=== PATIENT | female | born 1945 | race Caucasian/White ===

== ENCOUNTER 2017-10-08 07:00 | Outpatient (CLI) | payer OTHER | END 2017-10-08 07:01 | disposition home or self-care (01) | LOC: LAB.R 07:00 | DX: Z53.9 Procedure and treatment not carried out, unspecified reason (principal) ==

== ENCOUNTER 2017-10-24 14:11 | Outpatient (CLI) | payer MEDICARE, BC ==
--- NOTE | 2017-10-24 15:32 | XRAY Report ---
Procedure Date: 10/24/2017 Accession Number: [id number] / [id number] Procedure: XR - Chest 2 View X-Ray CPT Code: 63628 FULL RESULT: EXAM: Chest 2 View X-Ray DATE: 10/24/2017 2:30 PM CLINICAL HISTORY: [facility] COMPARISON: 08/10/2015 TECHNIQUE: 2 views. FINDINGS: Lungs/Pleura: The lungs are hyperinflated, with emphysematous changes. Calcified granulomas are stable. No new infiltrate, effusion, or pneumothorax. Mediastinum: Heart and mediastinal contours are unremarkable. Other: Postoperative changes of left mastectomy. IMPRESSION: Stable emphysema and changes of old granulomatous disease. No evidence of acute cardiopulmonary disease. [facility]
== END 2017-10-24 14:12 | disposition home or self-care (01) ==
LOC: DI 14:11
PROVIDERS: ATTEND Internal Medicine
DX: J43.9 Emphysema, unspecified (principal)
CPT/HCPCS: 71046

== ENCOUNTER 2017-11-01 17:56 | Outpatient (CLI) | payer MEDICARE, BC ==
--- NOTE | 2017-11-01 18:47 | CT Report ---
Procedure Date: 11/01/2017 Accession Number: [id number] / [id number] Procedure: CT - Head W/O CPT Code: FULL RESULT: EXAM: CT HEAD EXAM DATE: 11/01/2017 06:09 PM. CLINICAL HISTORY: SYNCOPE AND COLLAPSE. COMPARISON: None. TECHNIQUE: Multiaxial CT images were obtained from the foramen magnum to the vertex. Reformats: Coronal. IV contrast: None. In accordance with CT protocol optimization, one or more of the following dose reduction techniques were utilized for this exam: automated exposure control, adjustment of mA and/or KV based on patient size, or use of iterative reconstructive technique. FINDINGS: Parenchyma: No intraparenchymal hemorrhage. No evidence of mass, midline shift, or CT findings of infarction. Araya-white differentiation is distinct. Extraaxial Spaces: Normal for age. No subdural or epidural collections identified. Ventricles: Normal in size and position. Sinuses and Orbits: Imaged paranasal sinuses, orbits, and mastoids show no significant abnormality. Bones: No evidence of fracture or calvarial defect. Other: None. IMPRESSION: No acute intracranial abnormality. [facility]
== END 2017-11-01 17:57 | disposition home or self-care (01) ==
LOC: DI 17:56
PROVIDERS: ATTEND Physician Assistant Medical
DX: R55 Syncope and collapse (principal)
CPT/HCPCS: 70450

== ENCOUNTER 2017-11-05 10:04 | Outpatient (CLI) | payer MEDICARE, BC ==
--- NOTE | 2017-11-05 11:40 | XRAY Report ---
Procedure Date: 11/05/2017 Accession Number: [id number] / [id number] Procedure: XR - Shoulder 3 View LT CPT Code: FULL RESULT: EXAM: Shoulder 3 View LT DATE: 11/05/2017 11:27 AM CLINICAL HISTORY: RIB PAIN, LEFT/LOW BACK PAIN/SHOULDER JOINT PAIN COMPARISON: None. TECHNIQUE: 3 views. FINDINGS: Bones: Normal. No fracture or bone lesion. Joints: The glenohumeral and acromioclavicular joints are normal. Soft tissues: The visualized hemithorax is unremarkable. No soft tissue swelling. Surgical clips are seen in the left axilla. IMPRESSION: No fracture or dislocation. [facility]
--- NOTE | 2017-11-05 11:45 | XRAY Report ---
Procedure Date: 11/05/2017 Accession Number: [id number] / [id number] Procedure: XR - Lumbar Spine 2 View CPT Code: FULL RESULT: EXAM: Lumbar Spine 2 View DATE: 11/05/2017 11:27 AM CLINICAL HISTORY: RIB PAIN, LEFT/LOW BACK PAIN/SHOULDER JOINT PAIN L COMPARISON: None. TECHNIQUE: 2 views. FINDINGS: Alignment: Mild S-shaped thoracolumbar scoliosis. Bones: Vestigial ribs are noted at L1. Marginal osteophytosis most pronounced at L2-3 anteriorly. No fractures or bone lesions. Disks: Normal. Disk heights are maintained. Facets: No degenerative changes. Sacroiliac Joints: Unremarkable. Soft Tissues: Aortic calcifications, the visualized bowel gas pattern is unremarkable. Surgical clips over the pelvis are noted. IMPRESSION: Mild scoliosis with minimal degenerative changes. [facility]
--- NOTE | 2017-11-05 11:48 | XRAY Report ---
Procedure Date: 11/05/2017 Accession Number: [id number] / [id number] Procedure: XR - Ribs 2 View LT CPT Code: FULL RESULT: EXAM: Ribs 2 View LT DATE: 11/05/2017 11:27 AM CLINICAL HISTORY: RIB LEFT,LOW BACK SHOULDER JOINT PAIN..LEFT COMPARISON: 10/24/2017. TECHNIQUE: 2 views. FINDINGS: Bones: Normal. No fracture or bone lesion. Lungs: No focal opacities evident. No pneumothorax or pleural effusions. Mediastinum: Heart and cardiomediastinal contours are unremarkable. Other: Surgical clips are seen projecting over the left mediastinum and axilla. IMPRESSION: No displaced rib fracture is identified. [facility]
== END 2017-11-05 10:05 | disposition home or self-care (01) ==
LOC: DI 10:04
PROVIDERS: ATTEND Physician Assistant Medical
DX: R07.81 Pleurodynia (principal); M25.512 Pain in left shoulder; M54.5 Low back pain; M41.86 Other forms of scoliosis, lumbar region
CPT/HCPCS: 72100

== ENCOUNTER 2017-12-26 15:42 | Outpatient (CLI) | payer MEDICARE, BC ==
--- NOTE | 2017-12-27 08:39 | DEXA Report ---
Reason: BONE DISORDER Procedure Date: 12/26/2017 Accession Number: [id number] / [id number] Procedure: DEX - Dexa Spine and/or Hip CPT Code: FULL RESULT: EXAM: Dexa Spine and/or Hip DATE: 12/26/2017 4:14 PM CLINICAL HISTORY: BONE DISORDER TECHNIQUE: Dual energy x-ray absorptiometry (DXA) was performed on a [employer] System. Regions measured are the AP Spine, femoral neck, and if needed forearm. COMPARISON: None. In accordance with the International Society for Clinical Densitometry (ISCD) guidelines, data from previous exams may be reanalyzed using current recommendations and techniques. This is done to allow a more accurate basis for comparison with the current study. FINDINGS: The data for the lumbar spine is as follows: BMD (g/cm/cm) T-SCORE Z-SCORE REGION L1 0.825 -2.5 -0.4 L2 0.896 -2.5 -0.4 L3 0.941 -2.2 0.0 L4 0.900 -2.5 -0.4 TOTAL 0.894 -2.4 -0.2 NOTE: All evaluable vertebrae are used for classification The data for the hip is as follows: BMD (g/cm/cm) T-SCORE Z-SCORE REGION Neck 0.746 -2.1 0.0 TOTAL 0.750 -2.0 -0.1 NOTE: The femoral neck or total proximal femur, whichever is lowest, is used for classification. IMPRESSION: THE WHO CLASSIFICATION BASED ON THE INTERNATIONAL REFERENCE STANDARD IS OSTEOPENIA. THE FRACTURE RISK IS INCREASED. RECOMMENDATION: Patients with diagnosis of osteoporosis or osteopenia should have regular bone mineral density assessment. For those eligible for Medicare, routine testing is allowed once every 2 years. Testing frequency can be increased for patients who have rapidly progressing disease or for those who are receiving medical therapy to restore bone mass. COMMENT: World Health Organization (WHO) definitions for osteoporosis and osteopenia: NORMAL BMD: T-score at -1.0 or higher, fracture risk is low OSTEOPENIA BMD: T-score between -1.0 and -2.5, fracture risk is increased. OSTEOPOROSIS BMD: T-score at -2.5 or lower, fracture risk is high. National Osteoporosis Foundation recommends: 1. Obtain adequate dietary calcium (at least 1200 mg per day) and vitamin D (400-800 international units per day). 2. Participate, as appropriate, in regular weightbearing and muscle-strengthening exercise. 3. Avoid tobacco use and reduce alcohol and caffeine intake. 4. For more detailed information see the website at www.NOF.org.
== END 2017-12-26 15:43 | disposition home or self-care (01) ==
LOC: DI 15:42
PROVIDERS: ATTEND Family Medicine
DX: M85.89 Other specified disorders of bone density and structure, multiple sites (principal)
CPT/HCPCS: 77080

== ENCOUNTER 2018-02-07 13:41 | Outpatient (CLI) | payer MEDICARE, BC ==
[2018-02-07 19:46] LABS: BASOPHILS % (AUTO) 0.4 %; EOSINOPHILS # (AUTO) 0.2 10^3/uL (0.0-0.7); EOSINOPHILS % (AUTO) 3.5 %; HGB - HEMOGLOBIN 11.6 g/dL (12.0-16.0); LYMPHOCYTES # (AUTO) 1.9 10^3/uL (1.5-3.5); LYMPHOCYTES % (AUTO) 27.7 %; MEAN CORPUSCULAR HEMOGLOBIN 26.1 pg (27.0-31.0); MEAN CORPUSCULAR HGB CONC 32.2 g/dL (32.0-36.0); MEAN CORPUSCULAR VOLUME 81.1 fL (81.0-99.0); MEAN PLATELET VOLUME 7.3 fL (7.9-10.8); MONOCYTES # (AUTO) 0.9 10^3/uL (0.0-1.0); MONOCYTES % (AUTO) 12.8 %; NEUTROPHILS # (AUTO) 3.8 10^3/uL (1.5-6.6); NEUTROPHILS % (AUTO) 55.6 %; PLT - PLATELET COUNT 399 10^3/uL (130-450); RED BLOOD COUNT 4.46 10^6/uL (4.20-5.40); RED CELL DISTRIBUTION WIDTH 14.2 % (12.0-15.0); WHITE BLOOD COUNT 6.8 x10^3/uL (4.8-10.8)
[2018-02-07 20:22] LABS: ALBUMIN 3.8 g/dL (3.2-5.5); ALBUMIN/GLOBULIN RATIO 1.1 (1.0-2.2); BILIRUBIN,TOTAL 0.6 mg/dL (0.2-1.0); CALCIUM 9.3 mg/dL (8.5-10.3); CREATININE 0.6 mg/dL (0.4-1.0); TOTAL PROTEIN 7.4 g/dL (6.7-8.2)
== END 2018-02-07 13:42 | disposition home or self-care (01) ==
LOC: LAB.WCP 13:41
PROVIDERS: ATTEND Family Medicine
DX: R55 Syncope and collapse (principal); I48.0 Paroxysmal atrial fibrillation
CPT/HCPCS: 36415; 80053; 84443; 85025

== ENCOUNTER 2018-02-13 13:45 | Outpatient (CLI) | payer MEDICARE, BC | END 2018-02-13 13:46 | disposition home or self-care (01) | LOC: DI 13:45 | PROVIDERS: ATTEND Family Medicine | DX: R55 Syncope and collapse (principal); I48.0 Paroxysmal atrial fibrillation | CPT/HCPCS: 93306 ==

== ENCOUNTER 2018-03-01 08:01 | Outpatient (CLI) | payer MEDICARE, BC ==
[2018-03-01] MEDS ORDERED: IOTHALAMATE MEGLUMINE 50 ML VIAL ONE (09:21)
[2018-03-01] MEDS ORDERED: GADOPENTETATE DIMEGLUMINE 5 ML VIAL IVP ONE ×3 (09:22→10:40)
[2018-03-01] MEDS ORDERED: BUFFERED LIDOCAINE 10 ML SYRINGE IU ONE ×2 (10:40)
[2018-03-01] MEDS ORDERED: IOTHALAMATE MEGLUMINE 50 ML VIAL IVP ONE (10:40)
--- NOTE | 2018-03-01 16:05 | MRI Report ---
Reason: CERVICAL RADICULOPATHY,LEFT Procedure Date: 03/01/2018 Accession Number: [id number] / [id number] Procedure: MRI - Cervical Spine W/O CPT Code: FULL RESULT: MRI CERVICAL SPINE WITHOUT CONTRAST EXAM DATE: 03/01/2018. INDICATION: 73-year-old female. History of breast cancer. Left shoulder and neck pain. TECHNIQUE: 1. Sagittal STIR, T1 and T2. 2. Axial T1, T2 and T2*. COMPARISON: None. FINDINGS: There is some straightening of the alignment in the upper/mid cervical spine. There is a mild lordosis in the lower cervical spine, centered at C6. There is minor, stepwise retrolisthesis of C3 on C4, C4 on C5 and C5 on C6 measuring 1-2 mm at all 3 levels. Also demonstrated is minor anterolisthesis of T1 on T2 and T2 on T3. Alignment is otherwise unremarkable. There is absence of normal T2 signal from the disks at all levels from C2-C3 through C7-T1, confirming disk degeneration. There is mild disk space narrowing at C2-C3 and C3-C4 with mild to moderate narrowing at C4-C5 and C5-C6 and mild narrowing at C6-C7. The C7-T1 disk space height is maintained. The marrow signal intensity is unremarkable. Axial Images: C2-C3: Small posterior spondylotic bar with minimal mass effect on the thecal sac. No spinal stenosis. The neural foramina appear widely patent. C3-C4: Retrolisthesis. Small posterior spondylotic bar with mild mass effect on the ventral aspect of the thecal sac. The CSF ventral to the cord is effaced. However, there is good CSF space dorsal to the cord without spinal stenosis. Right-sided uncovertebral osteophyte appears to be giving rise to mild right foraminal stenosis. C4-C5: Tiny posterior spondylotic bar with minimal mass effect on the thecal sac. The CSF ventral to the cord is effaced. There is good CSF space dorsal to the cord without significant spinal stenosis. Uncovertebral hypertrophy appears to be giving rise to mild to moderate right foraminal stenosis. No left foraminal narrowing. C5-C6: Posterior spondylotic bar indenting the ventral aspect of the thecal sac. The CSF ventral to the cord is effaced. There is a small amount of CSF dorsal to the cord without high-grade spinal stenosis. No evidence of spinal cord impingement. Uncovertebral hypertrophy gives rise to foraminal narrowing that appears to be at least moderate, possibly moderate to severe on the right. Mild to moderate left foraminal stenosis. C6-C7: Tiny posterior spondylotic bar with minimal mass effect on the thecal sac. No spinal stenosis. Left-sided intraforaminal extrusion with mild left foraminal stenosis. No right foraminal narrowing. C7-T1: No disk herniation or spinal stenosis. The neural foramina appear widely patent. T1-T2: Anterolisthesis with associated uncovering of the disk. No disk herniation or spinal stenosis. Neural foramina appear widely patent. The spinal cord appears to have a normal signal intensity throughout. IMPRESSION: 1. Multilevel degenerative cervical spondylosis without significant associated spinal stenosis. No evidence of spinal cord impingement. 2. Multilevel bony foraminal narrowing as described. The foraminal narrowing appears to be most prominent at C5-C6 on the right where there could be compromise of the exiting right C6 nerve root. Recommend clinical correlation for right C6 radiculopathy. 3. With respect to left-sided shoulder pain, no significant-appearing bony foraminal stenosis is demonstrated. There is a small left-sided intraforaminal disk herniation at C6-C7. It does not appear to be resulting in significant foraminal stenosis; however, there could potentially be irritation of the exiting left C7 nerve root. Recommend clinical correlation for possible left C7 radiculitis.
--- NOTE | 2018-03-01 16:43 | MRI Report ---
Reason: SHOULDER JOINT PAIN, LEFT, HX OF ADENOCARCINOMA BR Procedure Date: 03/01/2018 Accession Number: [id number] / [id number] Procedure: MRI - Arthrogram Shoulder LT CPT Code: FULL RESULT: EXAM: LEFT SHOULDER MRI ARTHROGRAM WITH CONTRAST EXAM DATE: 03/01/2018 11:40 AM. CLINICAL HISTORY: SHOULDER JOINT PAIN, LEFT, HX OF ADENOCARCINOMA BR. COMPARISON: SHOULDER 3 VIEW LT 11/05/2017 11:06 AM. TECHNIQUE: Multiplanar, multisequence T1-weighted and fluid-sensitive sequences of the shoulder after an arthrographic injection of dilute gadolinium, dictated under a separate exam. Other: None. FINDINGS: Rotator cuff: Some low-grade articular surface tear or fraying of the distal supraspinatus measuring approximately 1.5 cm medial to lateral and 1 cm anteroposterior. No evidence of a high-grade or full-thickness rotator cuff tear. No rotator cuff muscle atrophy or fatty replacement. Long head biceps tendon: Intact demonstrating normal course, signal and morphology. Labrum: Linear contrast filling defect along the base of the superior labrum. There is a lobulated cystic structure within the joint superiorly which demonstrates partial contrast filling with some shading of contrast measuring up to 2.9 x 2.0 x 2.4 cm. The collection appears partially draped along the superior margin of the subscapularis. This may represent a partial contrast filling the anterosuperior. Labral cyst. Bones and articular surfaces: No significant articular cartilage defects are seen. Acromioclavicular joint: Mild degenerative change. Type II acromion. IMPRESSION: 1. Contrast filling defect along the base of the superior labrum suspicious for tear with possible associated anterosuperior large lobulated partially contrast filling paralabral cyst. 2. Low-grade articular surface tear or fraying of the supraspinatus. [facility] MUSCULOSKELETAL RADIOLOGY SECTION
--- NOTE | 2018-03-04 08:48 | XRAY Report ---
Reason: SHOULDER JOINT PAIN, LEFT, HX OF ADENOCARCINOMA BR Procedure Date: 03/01/2018 Accession Number: [id number] / [id number] Procedure: FL - Arthrogram Needle Placement CPT Code: FULL RESULT: EXAM: LEFT SHOULDER ARTHROGRAPHIC INJECTION WITH FLUOROSCOPIC GUIDANCE EXAM DATE: 03/01/2018 10:19 AM. CLINICAL HISTORY: Left shoulder joint pain. History of breast cancer. COMPARISON: None. TECHNIQUE: The risks, benefits, and alternatives of the procedure were discussed with the patient. All questions were answered. Written and verbal consent were obtained. The glenohumeral joint was marked under fluoroscopy and prepped and draped in a sterile manner. Local anesthesia was performed with 1% lidocaine. A 22-gauge needle was then inserted into the glenohumeral joint. 10 mL of a solution containing 25% 1% lidocaine, 25% iodinated contrast, and a 1:200 dilution of gadolinium contrast in sterile saline was then injected. The needle was removed without immediate complication. Other: None. Fluoroscopy Time: 3 seconds. Number of Images: 1. FINDINGS: Bones and joints: No fracture or subluxation. Injection: Fluoroscopic images demonstrate needle placement and contrast in the glenohumeral joint. No contrast extravasation outside of the glenohumeral joint. IMPRESSION: Successful fluoroscopically guided arthrographic injection of the shoulder. [facility]
== END 2018-03-01 08:02 | disposition home or self-care (01) ==
LOC: DI 08:01
PROVIDERS: ATTEND Family Medicine
DX: M25.512 Pain in left shoulder (principal); M47.9 Spondylosis, unspecified; M50.223 Other cervical disc displacement at C6-C7 level; M50.31 Other cervical disc degeneration, high cervical region; M43.14 Spondylolisthesis, thoracic region
CPT/HCPCS: 23350; 72141; 73222; 77002; Q9961

== ENCOUNTER 2018-07-11 18:00 | Emergency (ER) | payer MEDICARE, BC ==
--- NOTE | 2018-07-11 18:40 | ED Physician Documentation ---
PD HPI CHEST PAIN - Stated complaint Stated Complaint: HBP - Chief complaint Chief Complaint: Cardiac - History obtained from History obtained from: Patient - History of Present Illness Timing - onset: How many weeks ago (has been feeling intermittent fast and irregular heart rate, more frequent the past few days. Had it [employer] and feeling okay once here. Had had similar in the past and had lunchroom monitor, and they have results with them. The report read couple episodes of atrial fib/flutter with rate to 150, but also normal rhythm at other times that she marked feeling symptoms.) Timing - onset during: Rest, Light activity Timing - duration: Minutes Timing - details: Abrupt onset, Now resolved Quality: Tightness Radiation: No: Neck, Back Improved by: No: Rest Associated symptoms: Shortness of air (has had dyspnea more consistently even without the feeling of palpitations, some improved with Albuterol.), Feeling faint / dizzy, Palpitations. No: Nausea, Cough Similar symptoms before: Diagnosis (had some episodes of atrial flutter on lunchroom monitor outpt, but not often enough for treatment at the time. 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 denies: Chest pain / pressure Respiratory: reports: Dyspnea, Cough, Wheezing GI: denies: Nausea, Vomiting, Diarrhea Musculoskeletal: denies: Extremity swelling Neurologic: denies: Near syncope, Syncope PD PAST MEDICAL HISTORY - Past Medical History Past Medical History: Yes Cardiovascular: Hypertension, Atrial flutter Respiratory: Asthma Neuro: None Endocrine/Autoimmune: None - Present Medications Home Medications: Ambulatory Orders Medication Instructions Recorded Confirmed Beclomethasone 40 Mcg [Qvar 40] 1 puffs INH BID #1 inhaler 07/11/18 Metoprolol Tartrate 25 mg PO DAILY #30 tablet 07/11/18 Potassium Chloride 10 meq PO DAILY #10 tablet.er 07/11/18 - Allergies Allergies/Adverse Reactions: Allergies Allergy/AdvReac Type Severity Reaction Status Date / Time acetaminophen [From Vicodin] Allergy Unknown Verified 07/11/18 18:21 cephalexin [From Keflex] Allergy Unknown Verified 07/11/18 18:22 codeine Allergy Unknown Verified 07/11/18 18:21 hydrocodone Allergy Unknown Verified 07/11/18 18:21 hydromorphone [From Dilaudid] Allergy Unknown Verified 07/11/18 18:21 oxycodone [From Percocet] Allergy Unknown Verified 07/11/18 18:22 Sulfa (Sulfonamide Allergy Unknown Verified 07/11/18 18:21 Antibiotics) PD ED PE NORMAL - Vitals Vital signs reviewed: Yes - General General: Alert and oriented X 3, No acute distress, Well developed/nourished - HEENT HEENT: Pharynx benign - Neck Neck: Supple, no meningeal sign, No adenopathy - Cardiac Cardiac: RRR, No murmur - Respiratory Respiratory: Clear bilaterally - Abdomen Abdomen: Soft, Non tender - Back Back: No CVA TTP - Derm Derm: Normal color, Warm and dry - Extremities Extremities: No tenderness to palpate, Normal ROM s pain, No edema, No calf tenderness / cord - Neuro Neuro: Alert and oriented X 3, No motor deficit, Normal speech Results - Vitals Vitals: Oxygen O2 Source Room air - EKG (time done) 18:13 Rate: Rate (enter#) (93) Rhythm: NSR [place]: Normal Intervals: Normal [place] QRS: Normal Ischemia: Normal ST segments. No: ST elevation c/w ischemia, ST depression - Labs Labs: Laboratory Tests 07/11/18 07/11/18 07/11/18 18:31 18:31 18:31 WBC 8.0 RBC 4.34 Hgb 11.4 L Hct 35.5 L MCV 81.8 MCH 26.2 L MCHC 32.0 RDW 12.8 Plt Count 392 MPV 6.8 L Neut # (Auto) 4.4 Lymph # (Auto) 1.9 Pierce # (Auto) 1.5 H Eos # (Auto) 0.2 Baso # (Auto) 0.1 Absolute Nucleated RBC 0.00 Nucleated RBC % 0.0 Sodium 138 Potassium 3.5 Chloride 99 L Carbon Dioxide 28 Anion Gap 11.0 BUN 13 Creatinine 0.6 Estimated GFR (MDRD) 98 Glucose 108 H Calcium 8.8 Total Bilirubin 0.5 AST 25 ALT 15 Alkaline Phosphatase 102 Troponin I < 0.04 Total Protein 7.2 Albumin 3.8 Globulin 3.4 Albumin/Globulin Ratio 1.1 Lipase 54 H Urine Color Urine Clarity Urine pH Ur Specific [place] Urine Protein Urine Glucose (UA) Urine Ketones Urine Occult Blood Urine Nitrite Urine Bilirubin Urine Urobilinogen Ur Leukocyte Esterase Ur Microscopic Review Urine Culture Comments 07/11/18 18:45 WBC RBC Hgb Hct MCV MCH MCHC RDW Plt Count MPV Neut # (Auto) Lymph # (Auto) Pierce # (Auto) Eos # (Auto) Baso # (Auto) Absolute Nucleated RBC Nucleated RBC % Sodium Potassium Chloride Carbon Dioxide Anion Gap BUN Creatinine Estimated GFR (MDRD) Glucose Calcium Total Bilirubin AST ALT Alkaline Phosphatase Troponin I Total Protein Albumin Globulin Albumin/Globulin Ratio Lipase Urine Color LT. YELLOW Urine Clarity CLEAR Urine pH 6.0 Ur Specific [place] 1.010 Urine Protein NEGATIVE Urine Glucose (UA) NEGATIVE Urine Ketones NEGATIVE Urine Occult Blood TRACE-LYSE Urine Nitrite NEGATIVE Urine Bilirubin NEGATIVE Urine Urobilinogen 0.2 (NORMAL) Ur Leukocyte Esterase NEGATIVE Ur Microscopic Review NOT INDICATED Urine Culture Comments NOT INDICATED - Rads (name of study) chest xray Radiology: Prelim report reviewed (normal, no CHF.) PD MEDICAL DECISION MAKING - ED course Complexity details: reviewed results, re-evaluated patient, considered differential (symptoms suggest more often atrial fib/flutter episodes. None here. Had them found on prior Holter. Can start beta jose, as resting HR is 70-80 and BP slightly high. I think her dyspnea sounds more asthma. She does not want oral steroids, but can do inhaled. ), d/w patient Departure - Departure Disposition: 01 Home, Self Care Clinical Impression: Episodic atrial fibrillation High blood pressure Qualifiers: Hypertension type: unspecified Qualified Code(s): I10 - Essential (primary) hypertension Asthma exacerbation Qualifiers: Asthma severity: mild Asthma persistence: intermittent Qualified Code(s): J45.21 - Mild intermittent asthma with (acute) exacerbation Condition: Stable Record reviewed to determine appropriate education?: Yes Instructions: ED Afib Follow-Up: Nash Goncalves DO [Primary Care Provider] - Prescriptions: Beclomethasone 40 Mcg [Qvar 40] 1 puffs INH BID #1 inhaler Metoprolol Tartrate 25 mg PO DAILY #30 tablet Potassium Chloride 10 meq PO DAILY #10 tablet.er Comments: Given your episodes of atrial fib flutter in the past associated with these feelings, I presume some of the fast heart rate episodes you felt are episodes of the A. fib. If not there likely PVCs/palpitations. Both can be tried to reduce with low-dose metoprolol beta-jose medication. Start taking metoprolol daily. Stay well-hydrated. Add a potassium supplement for a week as your level was a bit low (low normal). Follow-up with your primary care next week and check your blood pressure and heart rate twice daily during the next week and record it to bring that information to your provider. Regarding your difficulty breathing, he can continue the albuterol 2 puffs twice daily. Add beclomethasone inhaled steroid twice daily and see if that helps the breathing over the next several days to week. Return as needed. Discharge Date/Time: 07/11/18 20:29
[2018-07-11 18:44] LABS: BASOPHILS # (AUTO) 0.1 10^3/uL (0.0-0.1); BASOPHILS % (AUTO) 0.7 %; EOSINOPHILS # (AUTO) 0.2 10^3/uL (0.0-0.7); EOSINOPHILS % (AUTO) 2.6 %; HGB - HEMOGLOBIN 11.4 g/dL (12.0-16.0); LYMPHOCYTES # (AUTO) 1.9 10^3/uL (1.5-3.5); LYMPHOCYTES % (AUTO) 23.1 %; MEAN CORPUSCULAR HEMOGLOBIN 26.2 pg (27.0-31.0); MEAN CORPUSCULAR VOLUME 81.8 fL (81.0-99.0); MEAN PLATELET VOLUME 6.8 fL (7.9-10.8); MONOCYTES # (AUTO) 1.5 10^3/uL (0.0-1.0); MONOCYTES % (AUTO) 18.4 %; NEUTROPHILS # (AUTO) 4.4 10^3/uL (1.5-6.6); NEUTROPHILS % (AUTO) 55.2 %; PLT - PLATELET COUNT 392 10^3/uL (130-450); RED BLOOD COUNT 4.34 10^6/uL (4.20-5.40); RED CELL DISTRIBUTION WIDTH 12.8 % (12.0-15.0)
[2018-07-11 18:54] LABS: ALBUMIN 3.8 g/dL (3.2-5.5); ALBUMIN/GLOBULIN RATIO 1.1 (1.0-2.2); BILIRUBIN,TOTAL 0.5 mg/dL (0.2-1.0); CALCIUM 8.8 mg/dL (8.5-10.3); CREATININE 0.6 mg/dL (0.4-1.0); TOTAL PROTEIN 7.2 g/dL (6.7-8.2)
[2018-07-11 19:04] LABS: BILIRUBIN,URINE NEGATIVE (NEGATIVE); GLUCOSE, URINE (UA) NEGATIVE (NEGATIVE); KETONES,URINE (UA) NEGATIVE (NEGATIVE); LEUKOCYTE ESTERASE, URINE NEGATIVE (NEGATIVE); NITRITE,URINE NEGATIVE (NEGATIVE); OCCULT BLOOD,URINE TRACE-LYSE (NEGATIVE); PROTEIN,URINE NEGATIVE (NEGATIVE); UROBILINOGEN,URINE 0.2 (NORMAL) E.U./dL (NORMAL)
[2018-07-11 19:07] LABS: CLARITY,URINE CLEAR (CLEAR)
--- NOTE | 2018-07-11 19:13 | XRAY Report ---
Reason: chest pain Procedure Date: 07/11/2018 Accession Number: [id number] / [id number] Procedure: XR - Chest 1 View X-Ray CPT Code: 59393 FULL RESULT: EXAM: CHEST RADIOGRAPHY EXAM DATE: 07/11/2018 06:49 PM. CLINICAL HISTORY: Chest pain. COMPARISON: CHEST 2 VIEW PA/LAT 02/05/2018 2:23 PM. TECHNIQUE: 1 view. FINDINGS: Cardiac leads overlie the chest. Heart size is normal. Calcified plaques in the thoracic aorta. Surgical clips again seen projecting over the left chest. Mild patchy opacity in the left lung base. No definite pleural effusions or pneumothoraces. Biphasic curvature of the thoracic spine. IMPRESSION: Mild patchy opacity in the left lung base, likely atelectasis. [facility]
[2018-07-11] MEDS ORDERED: METOPROLOL SUCCINATE 25 MG TABLET PO STA (19:14)
[2018-07-11] MEDS ORDERED: POTASSIUM BICARB 25 MEQ TABLET PO STA (19:17)
[2018-07-11] MEDS ORDERED: ALBUTEROL NEB 2.5 MG/3 ML INH STA (19:23)
[2018-07-11 20:29] VITALS: BP 151/79
== END 2018-07-11 20:29 | disposition home or self-care (01) ==
LOC: ED 18:00
DX: I48.91 Unspecified atrial fibrillation (principal); I10 Essential (primary) hypertension
CPT/HCPCS: 36415; 71045; 80053; 81003; 83690; 84484; 85025; 93005; 94640; 94664; 99283; A9270; 81001; 87086

== ENCOUNTER 2018-08-05 05:15 | Emergency (ER) | payer MEDICARE, BC ==
[2018-08-05] MEDS ORDERED: SODIUM CHLORIDE 0.9% 1,000 ML IV ONE (06:03)
[2018-08-05] MEDS ORDERED: IPRATROPIUM/ALBUTEROL 3 ML NEB INH STA (06:03)
[2018-08-05] MEDS ORDERED: DEXAMETHASONE 10 MG/ML VIAL IVP STA (06:03)
--- NOTE | 2018-08-05 06:07 | ED Physician Documentation ---
PD HPI CHEST PAIN - Stated complaint Stated Complaint: HBP - Chief complaint Chief Complaint: Neuro - History obtained from History obtained from: Patient, Family - History of Present Illness Timing - onset: Today Timing - onset during: Rest Timing - duration: Hours Timing - details: Waxing and waning Quality: Pressure, Pain Location: Left chest Radiation: Back Improved by: Rest Worsened by: Inspiration Associated symptoms: Shortness of air, Cough, Other (elevated blood pressure) Similar symptoms before: Has not had sx before Recently seen: Emergency Dept - Additional information Additional information: 73-year-old female with a prior history of breast cancer, intermittent atrial flutter and hypertension has not felt well for the past month with a cough and congestion. The past 2 days she has begun to feel fatigue and chills as well as pain in her neck and chest. She got up in the middle of the night checked her blood pressure found it was elevated and woke her up to come to the emergency department. She initially did not tell her about the chest pain she was having. She denies radiation of the pain and the pain that she is having in her neck is across the back of her neck where she can feel stiff muscles. Review of Systems Constitutional: reports: Chills, Fatigue, Sweats. denies: Fever Eyes: denies: Decreased vision Ears: denies: Ear pain Nose: denies: Rhinorrhea / runny nose, Congestion Throat: denies: Sore throat Cardiac: reports: Chest pain / pressure. denies: Palpitations, Pedal edema, Calf pain Respiratory: reports: Dyspnea, Cough, Wheezing GI: denies: Abdominal Pain, Nausea, Vomiting : denies: Dysuria, Frequency Skin: denies: Rash Musculoskeletal: reports: Neck pain. denies: Back pain, Extremity pain Neurologic: reports: Other (light headed). 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 Other Past Medical History: L breast CA - Past Surgical History Past Surgical History: Yes /CASSANDRA CONSULTANT: Mastectomy - Present Medications Home Medications: Ambulatory Orders Medication Instructions Recorded Confirmed RX: Metoprolol Tartrate 25 mg PO DAILY #30 tablet 07/11/18 08/05/18 Aspirin [Children's Aspirin] 81 mg PO DAILY 08/05/18 08/05/18 Beclomethasone 40 Mcg [Qvar 40] 1 puffs IH BID 08/05/18 08/05/18 RX: Azithromycin [Zithromax] 250 mg PO DAILY #6 tablet 08/05/18 RX: Potassium Chloride 10 meq PO DAILY 08/05/18 08/05/18 RX: predniSONE [Deltasone] 10 mg PO ONCE #26 tablet 08/05/18 - Allergies Allergies/Adverse Reactions: Allergies Allergy/AdvReac Type Severity Reaction Status Date / Time acetaminophen [From Vicodin] Allergy Unknown Verified 08/05/18 05:23 cephalexin [From Keflex] Allergy Unknown Verified 08/05/18 05:23 codeine Allergy Unknown Verified 08/05/18 05:23 hydrocodone Allergy Unknown Verified 08/05/18 05:23 hydromorphone [From Dilaudid] Allergy Unknown Verified 08/05/18 05:23 oxycodone [From Percocet] Allergy Unknown Verified 08/05/18 05:23 Sulfa (Sulfonamide Allergy Unknown Verified 08/05/18 05:23 Antibiotics) - Social History Does the pt smoke?: No Smoking Status: Never smoker Does the pt drink ETOH?: Yes ETOH Use: Wine Does the pt have substance abuse?: No - Immunizations Immunizations are current?: No Immunizations: TDAP >10years/unknown - POLST Patient has POLST: No PD ED PE NORMAL - Vitals Vital signs reviewed: Yes (hypertensive mild ) - General General: Alert and oriented X 3, No acute distress, Well developed/nourished - HEENT HEENT: Atraumatic, PERRL, EOMI, Moist mucous membranes, Pharynx benign, Dentition benign, Other (minimal inflamation in the left TM) - Neck Neck: Supple, no meningeal sign, No bony TTP - Cardiac Cardiac: RRR, No murmur - Respiratory Respiratory: No respiratory distress, Other (rhonchi and wheezes on the left side. 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, No motor deficit, No sensory deficit, Normal speech Eye Opening: Spontaneous Motor: Obeys Commands Verbal: Oriented GCS Score: 15 - Psych Psych: Normal mood, Normal affect Results - Vitals Vitals: Vital Signs - 24 hr 08/05/18 08/05/18 08/05/18 05:15 05:36 06:13 Temperature 36.9 C Heart Rate 71 65 102 H Respiratory 18 18 16 Rate Blood Pressure 161/75 H 154/69 H O2 Saturation 97 98 08/05/18 08/05/18 06:23 06:45 Temperature Heart Rate 70 73 Respiratory 19 19 Rate Blood Pressure 140/70 H 159/75 H O2 Saturation 100 100 Oxygen O2 Source Room air - EKG (time done) 0614 Rate: Rate (enter#) (61) QRS: LVH Ischemia: Normal ST segments Compare to prior EKG: Changed from prior EKG (SPT 07-11-18 rate has slowed) Computer interpretation: Agree with computer - Labs Labs: Laboratory Tests 08/05/18 08/05/18 08/05/18 06:13 06:13 06:13 WBC 8.3 RBC 4.38 Hgb 11.5 L Hct 35.8 L MCV 81.7 MCH 26.3 L MCHC 32.2 RDW 13.2 Plt Count 386 MPV 6.9 L Neut # (Auto) 4.3 Lymph # (Auto) 2.1 Richardson # (Auto) 1.5 H Eos # (Auto) 0.4 Baso # (Auto) 0.1 Absolute Nucleated RBC 0.00 Nucleated RBC % 0.0 Sodium 140 Potassium 3.6 Chloride 102 Carbon Dioxide 31 Anion Gap 7.0 BUN 13 Creatinine 0.6 Estimated GFR (MDRD) 98 Glucose 98 Lactic Acid Calcium 9.1 Total Bilirubin 0.5 AST 22 ALT 14 Alkaline Phosphatase 105 Troponin I < 0.04 Total Protein 7.4 Albumin 3.8 Globulin 3.6 Albumin/Globulin Ratio 1.1 Lipase 57 H Urine Color Urine Clarity Urine pH Ur Specific Gould Urine Protein Urine Glucose (UA) Urine Ketones Urine Occult Blood Urine Nitrite Urine Bilirubin Urine Urobilinogen Ur Leukocyte Esterase Ur Microscopic Review Urine Culture Comments 08/05/18 08/05/18 06:36 06:45 WBC RBC Hgb Hct MCV MCH MCHC RDW Plt Count MPV Neut # (Auto) Lymph # (Auto) Richardson # (Auto) Eos # (Auto) Baso # (Auto) Absolute Nucleated RBC Nucleated RBC % Sodium Potassium Chloride Carbon Dioxide Anion Gap BUN Creatinine Estimated GFR (MDRD) Glucose Lactic Acid 1.2 Calcium Total Bilirubin AST ALT Alkaline Phosphatase Troponin I Total Protein Albumin Globulin Albumin/Globulin Ratio Lipase Urine Color YELLOW Urine Clarity CLEAR Urine pH 6.5 Ur Specific Gould 1.010 Urine Protein NEGATIVE Urine Glucose (UA) NEGATIVE Urine Ketones NEGATIVE Urine Occult Blood TRACE-INTA Urine Nitrite NEGATIVE Urine Bilirubin NEGATIVE Urine Urobilinogen 0.2 (NORMAL) Ur Leukocyte Esterase NEGATIVE Ur Microscopic Review NOT INDICATED Urine Culture Comments NOT INDICATED - Rads (name of study) chest 2 view Radiology: Prelim report reviewed (Impression: 1. Large lung volumes and postoperative changes. 2 Mild chronic reticulonodular pulmonary opacities.), EMP read indepedently, See rad report Procedures - IVC sono (time) 0604 Bedside IVC sono: IVC measures (cm) (1.12), IVC collapsed c insp (cm) (complete), Dehydration (est 1+ liters deficit) PD MEDICAL DECISION MAKING - ED course Complexity details: reviewed old records, reviewed results, re-evaluated patient, considered differential, d/w patient, d/w family ED course: 73-year-old female with chest pain cough congestion and wheezing is administered DuoNeb treatment dexamethasone and liter of saline for dehydration. An x-ray is obtained.There is evidence of COPD on the x-ray but there is not evidence of a infiltrate or pneumonia. The patient is a bit adverse to the use of steroids. And after discussion with the patient and her especially with regards to the fact that she does have lung disease she appears more accepting of this but would likely use the inhaled steroid rather than the prednisone. She has follow-up tomorrow with Dr. Love. Departure - Departure Clinical Impression: Asthma exacerbation, Dehydration Condition: Stable Instructions: ED COPD Flare, ED Dehydration Follow-Up: Nash Goncalves DO [Primary Care Provider] - Prescriptions: RX: Azithromycin [Zithromax] 250 mg PO DAILY #6 tablet RX: predniSONE [Deltasone] 10 mg PO ONCE #26 tablet
[2018-08-05 06:29] LABS: BASOPHILS # (AUTO) 0.1 10^3/uL (0.0-0.1); BASOPHILS % (AUTO) 0.7 %; EOSINOPHILS # (AUTO) 0.4 10^3/uL (0.0-0.7); EOSINOPHILS % (AUTO) 4.7 %; HGB - HEMOGLOBIN 11.5 g/dL (12.0-16.0); LYMPHOCYTES # (AUTO) 2.1 10^3/uL (1.5-3.5); LYMPHOCYTES % (AUTO) 25.2 %; MEAN CORPUSCULAR HEMOGLOBIN 26.3 pg (27.0-31.0); MEAN CORPUSCULAR HGB CONC 32.2 g/dL (32.0-36.0); MEAN CORPUSCULAR VOLUME 81.7 fL (81.0-99.0); MEAN PLATELET VOLUME 6.9 fL (7.9-10.8); MONOCYTES # (AUTO) 1.5 10^3/uL (0.0-1.0); MONOCYTES % (AUTO) 17.5 %; NEUTROPHILS # (AUTO) 4.3 10^3/uL (1.5-6.6); NEUTROPHILS % (AUTO) 51.9 %; PLT - PLATELET COUNT 386 10^3/uL (130-450); RED BLOOD COUNT 4.38 10^6/uL (4.20-5.40); RED CELL DISTRIBUTION WIDTH 13.2 % (12.0-15.0); WHITE BLOOD COUNT 8.3 x10^3/uL (4.8-10.8)
--- NOTE | 2018-08-05 06:40 | XRAY Report ---
Reason: L sided chest pain cough rhonchi Procedure Date: 08/05/2018 Accession Number: [id number] / [id number] Procedure: XR - Chest 2 View X-Ray CPT Code: 14629 FULL RESULT: EXAM: CHEST RADIOGRAPHY EXAM DATE: 08/05/2018 06:34 AM. CLINICAL HISTORY: L sided chest pain cough rhonchi. COMPARISON: CHEST 1 VIEW 07/11/2018 6:37 PM. TECHNIQUE: 2 views. FINDINGS: Lungs/Pleura: Large lung volumes. Mild chronic reticulonodular opacities. No pleural effusion seen. No pneumothorax. Postoperative changes in the left hemithorax. Mediastinum: Heart size is normal. Other: Osteopenia. Mild scoliosis. IMPRESSION: 1. Large lung volumes and postoperative changes. 2. Mild chronic reticulonodular pulmonary opacities. RADIA
[2018-08-05 06:41] LABS: ALBUMIN 3.8 g/dL (3.2-5.5); ALBUMIN/GLOBULIN RATIO 1.1 (1.0-2.2); BILIRUBIN,TOTAL 0.5 mg/dL (0.2-1.0); CALCIUM 9.1 mg/dL (8.5-10.3); CREATININE 0.6 mg/dL (0.4-1.0); TOTAL PROTEIN 7.4 g/dL (6.7-8.2)
[2018-08-05 06:46] VITALS: BP 159/75
[2018-08-05 06:53] LABS: BILIRUBIN,URINE NEGATIVE (NEGATIVE); GLUCOSE, URINE (UA) NEGATIVE (NEGATIVE); KETONES,URINE (UA) NEGATIVE (NEGATIVE); LEUKOCYTE ESTERASE, URINE NEGATIVE (NEGATIVE); NITRITE,URINE NEGATIVE (NEGATIVE); OCCULT BLOOD,URINE TRACE-INTA (NEGATIVE); PH,URINE 6.5 PH (5.0-7.5); PROTEIN,URINE NEGATIVE (NEGATIVE); UROBILINOGEN,URINE 0.2 (NORMAL) E.U./dL (NORMAL)
[2018-08-05 06:58] LABS: CLARITY,URINE CLEAR (CLEAR)
== END 2018-08-05 07:43 | disposition home or self-care (01) ==
LOC: ED 05:15
DX: J44.1 Chronic obstructive pulmonary disease with (acute) exacerbation (principal); E86.0 Dehydration; R07.9 Chest pain, unspecified; I10 Essential (primary) hypertension; Z79.82 Long term (current) use of aspirin; Z08 Encounter for follow-up examination after completed treatment for malignant neoplasm; Z85.3 Personal history of malignant neoplasm of breast
CPT/HCPCS: 36415; 71046; 80053; 81001; 81003; 83605; 83690; 84484; 85025; 87086; 93005; 94640; 94664; 96361; 96374; 99284

== ENCOUNTER 2018-08-12 02:34 | Emergency (ER) | payer MEDICARE, BC ==
[2018-08-12] MEDS ORDERED: SODIUM CHLORIDE 0.9% 1,000 ML IV ONE (02:51)
--- NOTE | 2018-08-12 02:56 | ED Physician Documentation ---
History of Present Illness - Stated complaint Stated Complaint: FAST HEART - Chief complaint Chief Complaint: Cardiac - History obtained from History obtained from: Patient - History of Present Illness Timing: Prior to arrival - Additonal information Additional information: Patient is a 73-year-old female with history of breast cancer, paroxysmal atrial flutter, hypertension presenting with recurrent episodes of palpitations that began at approximately 12:30 AM today while patient was preparing for bed. Patient reports that she follows with cardiology and was recently placed on extended release metoprolol, but believes this medication is not working well, as she has had breakthrough episodes of palpitations. Patient reports associated burning-like sensation in the chest with palpitations earlier this morning. Both the palpitations and this discomfort have resolved. Patient also denies lightheadedness, syncope, difficulty breathing, vomiting, fever, or other complaints preceding or during the episode.Patient has returned to baseline otherwise. Patient's anticoagulation is aspirin. No other improving or worsening factors noted to her symptoms. 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 - Past Surgical History Past Surgical History: Yes /LABORER PIE BAKERY: Mastectomy - Present Medications Home Medications: Ambulatory Orders Medication Instructions Recorded Confirmed Metoprolol Tartrate 25 mg PO DAILY #30 tablet 07/11/18 08/12/18 Aspirin [Children's Aspirin] 81 mg PO DAILY 08/05/18 08/12/18 Beclomethasone 40 Mcg [Qvar 40] 1 puffs IH BID 08/05/18 08/12/18 Potassium Chloride 10 meq PO DAILY 08/05/18 08/12/18 predniSONE [Deltasone] 10 mg PO ONCE #26 tablet 08/05/18 08/12/18 - Allergies Allergies/Adverse Reactions: Allergies Allergy/AdvReac Type Severity Reaction Status Date / Time acetaminophen [From Vicodin] Allergy Unknown Verified 08/12/18 02:55 cephalexin [From Keflex] Allergy Unknown Verified 08/12/18 02:55 codeine Allergy Unknown Verified 08/12/18 02:55 hydrocodone Allergy Unknown Verified 08/12/18 02:55 hydromorphone [From Dilaudid] Allergy Unknown Verified 08/12/18 02:55 oxycodone [From Percocet] Allergy Unknown Verified 08/12/18 02:55 Sulfa (Sulfonamide Allergy Unknown Verified 08/12/18 02:55 Antibiotics) - Social History Does the pt smoke?: No Smoking Status: Never smoker Does the pt drink ETOH?: Yes Does the pt have substance abuse?: No - Immunizations Immunizations are current?: No Immunizations: TDAP >10years/unknown - POLST Patient has POLST: No PD ED PE NORMAL - General General: Alert and oriented X 3, No acute distress, Well developed/nourished - HEENT HEENT: Atraumatic, Moist mucous membranes - Cardiac Cardiac: RRR, No murmur - Respiratory Respiratory: No respiratory distress, Clear bilaterally - Abdomen Abdomen: Normal bowel sounds, Soft, Non tender, Non distended - Derm Derm: Normal color, Warm and dry, No rash - Extremities Extremities: No tenderness to palpate, No edema - Neuro Neuro: Alert and oriented X 3, No motor deficit, No sensory deficit - Psych Psych: Normal mood, Normal affect Results - Vitals Vitals: Vital Signs - 24 hr 08/12/18 08/12/18 08/12/18 02:35 02:53 03:13 Temperature 36.3 C L Heart Rate 76 71 72 Respiratory 14 21 18 Rate Blood Pressure 151/65 H 131/56 H 125/72 Blood Pressure 131/56 H [Left] Blood Pressure 151/65 H [Right] O2 Saturation 96 96 96 08/12/18 03:35 Temperature 36.1 C L Heart Rate 71 Respiratory 20 Rate Blood Pressure 115/54 L Blood Pressure [Left] Blood Pressure [Right] O2 Saturation 96 Oxygen O2 Source Room air - EKG (time done) 0245 Rate: Rate (enter#) (68) Rhythm: NSR Other comments: Other comments (PVCs with appearance of dropped beat, wandering baseline/artifact present) - Labs Labs: Laboratory Tests 08/12/18 08/12/18 08/12/18 02:40 02:40 02:40 WBC 12.1 H RBC 4.69 Hgb 12.2 Hct 38.5 MCV 82.1 MCH 25.9 L MCHC 31.6 L RDW 13.4 Plt Count 476 H MPV 6.9 L Neut # (Auto) 10.5 H Lymph # (Auto) 1.2 L K[place]y # (Auto) 0.3 Eos # (Auto) 0.0 Baso # (Auto) 0.0 Absolute Nucleated RBC 0.00 Nucleated RBC % 0.0 Sodium 141 Potassium 4.1 Chloride 100 L Carbon Dioxide 28 Anion Gap 13.0 BUN 19 Creatinine 0.6 Estimated GFR (MDRD) 98 Glucose 143 H Calcium 9.3 Total Bilirubin 0.2 AST 22 ALT 18 Alkaline Phosphatase 106 Troponin I < 0.04 Total Protein 8.0 Albumin 4.0 Globulin 4.0 Albumin/Globulin Ratio 1.0 Lipase 58 H TSH 08/12/18 02:40 WBC RBC Hgb Hct MCV MCH MCHC RDW Plt Count MPV Neut # (Auto) Lymph # (Auto) [place] # (Auto) Eos # (Auto) Baso # (Auto) Absolute Nucleated RBC Nucleated RBC % Sodium Potassium Chloride Carbon Dioxide Anion Gap BUN Creatinine Estimated GFR (MDRD) Glucose Calcium Total Bilirubin AST ALT Alkaline Phosphatase Troponin I Total Protein Albumin Globulin Albumin/Globulin Ratio Lipase TSH 0.81 PD MEDICAL DECISION MAKING - ED course Complexity details: reviewed old records, reviewed results, re-evaluated patient, considered differential, d/w patient, d/w family ED course: Patient has known history of paroxysmal atrial flutter and feel that her episode earlier this morning is likely a recurrence of such. Upon evaluation in the ED, patient's vital signs within normal limits and patient otherwise asymptomatic. Feel that this episode has resolved. Patient reports that she is compliant with beta-jose, as well as anticoagulation. Feel that patient will likely need to follow-up with cardiology to further discuss intermittent episodes and possible medication changes. At this time, patient will not require cardioversion or other medication intervention. Also have low suspicion for other etiologies such as PE, pneumonia, ACS, current infarction, unstable angina, but considered. Patient did report burning sensation with palpitations, but denies other symptoms that raise high suspicion for other underlying cardiac complication. However, did obtain EKG and troponin. Both returned relatively unremarkable, as did screening lab work. Xray unremarkable. Patient continued to be monitored in ED without further complaint of recurrence of issues. Feel that she is safe to discharge home, but emphasized need for close cardiology follow-up, as well as supportive cares and strict return precautions. Patient has been voiced understanding and is comfortable with discharge plan. Departure - Departure Disposition: 01 Home, Self Care Clinical Impression: Palpitations Condition: Good Instructions: ED Palpitations, ED Paroxysmal Atrial Flutter Follow-Up: Nash Goncalves MD [Primary Care Provider] - Within 3 Days Comments: Please continue all home medications as previously instructed. Please contact cardiology later this morning to establish follow-up appointment in the next 2 to 3 days to discuss breakthrough episodes of palpitations and possible further interventions, including medications. Return to the ED sooner if expands worsening symptoms or other concerns.
[2018-08-12 02:58] LABS: BASOPHILS % (AUTO) 0.3 %; EOSINOPHILS % (AUTO) 0.1 %; HGB - HEMOGLOBIN 12.2 g/dL (12.0-16.0); LYMPHOCYTES # (AUTO) 1.2 10^3/uL (1.5-3.5); LYMPHOCYTES % (AUTO) 10.1 %; MEAN CORPUSCULAR HEMOGLOBIN 25.9 pg (27.0-31.0); MEAN CORPUSCULAR HGB CONC 31.6 g/dL (32.0-36.0); MEAN CORPUSCULAR VOLUME 82.1 fL (81.0-99.0); MEAN PLATELET VOLUME 6.9 fL (7.9-10.8); MONOCYTES # (AUTO) 0.3 10^3/uL (0.0-1.0); MONOCYTES % (AUTO) 2.9 %; NEUTROPHILS # (AUTO) 10.5 10^3/uL (1.5-6.6); NEUTROPHILS % (AUTO) 86.6 %; PLT - PLATELET COUNT 476 10^3/uL (130-450); RED BLOOD COUNT 4.69 10^6/uL (4.20-5.40); RED CELL DISTRIBUTION WIDTH 13.4 % (12.0-15.0); WHITE BLOOD COUNT 12.1 x10^3/uL (4.8-10.8)
[2018-08-12 03:11] LABS: BILIRUBIN,TOTAL 0.2 mg/dL (0.2-1.0); CALCIUM 9.3 mg/dL (8.5-10.3); CREATININE 0.6 mg/dL (0.4-1.0)
--- NOTE | 2018-08-12 03:24 | XRAY Report ---
Reason: palpitations Procedure Date: 08/12/2018 Accession Number: [id number] / [id number] Procedure: XR - Chest 2 View X-Ray CPT Code: 24926 FULL RESULT: EXAM: CHEST RADIOGRAPHY EXAM DATE: 08/12/2018 03:15 AM. CLINICAL HISTORY: Palpitations. COMPARISON: CHEST 2 VIEW 08/05/2018 6:20 AM. TECHNIQUE: 2 views. FINDINGS: Lungs/Pleura: Stable hyperinflation and likely chronic fibrotic changes. No new consolidation, effusion, or pneumothorax. Mediastinum: No cardiomegaly. Other: Multiple surgical clips in the left anterior chest. IMPRESSION: Hyperinflation, with likely chronic fibrotic changes. No new infiltrate. RADIA
[2018-08-12 03:36] VITALS: BP 115/54
== END 2018-08-12 03:50 | disposition home or self-care (01) ==
LOC: ED 02:34
DX: R00.2 Palpitations (principal); R94.31 Abnormal electrocardiogram [ECG] [EKG]; I48.92 Unspecified atrial flutter; Z79.01 Long term (current) use of anticoagulants; I10 Essential (primary) hypertension; Z85.3 Personal history of malignant neoplasm of breast; Z90.10 Acquired absence of unspecified breast and nipple; Z79.82 Long term (current) use of aspirin
CPT/HCPCS: 36415; 71046; 80053; 83690; 84443; 84484; 85025; 93005; 99283; 99284

== ENCOUNTER 2018-10-03 13:48 | Outpatient (CLI) | payer MEDICARE, BC ==
--- NOTE | 2018-10-03 14:47 | CT Report ---
Reason: TRAUMATIC HEADACHE,UNSPECIFIED FALL Procedure Date: 10/03/2018 Accession Number: [id number] / [id number] Procedure: CT - CERVICAL SPINE WO CPT Code: FULL RESULT: EXAM: CT CERVICAL SPINE WITHOUT CONTRAST DATE: 10/03/2018 02:07 PM. HISTORY: 73-year-old woman with neck pain status post fall 2 weeks ago. COMPARISONS: HEAD W/O 11/01/2017 6:09 PM CERVICAL SPINE W/O 03/01/2018 8:10 AM CERVICAL SPINE W/O 10/03/2018 1:56 PM. TECHNIQUE: Thin-section axial images were acquired of the cervical spine without contrast. Post-processing: Coronal and sagittal reformats. Other: None. In accordance with CT protocol optimization, one or more of the following dose reduction techniques were utilized for this exam: automated exposure control, adjustment of mA and/or KV based on patient size, or use of iterative reconstructive technique. FINDINGS: Alignment: No significant spondylolisthesis. There is loss of normal cervical lordosis. Bones: No fracture or bone lesion. Mild degenerative endplate sclerosis is present throughout the cervical spine. Interspace Levels/Facets: C1-C2: Unremarkable. C2-C3: There is mild uncovertebral joint hypertrophy without significant narrowing of the bony central canal or neural foramina. C3-C4: No significant narrowing of the bony central canal. Uncovertebral joint hypertrophy results in mild narrowing of the right neural foramen without significant narrowing on the left. C4-C5: Posterior disk osteophyte complex results in mild narrowing of the bony central canal. Uncovertebral joint hypertrophy and facet hypertrophy result in mild to moderate narrowing of the right neural foramen and mild narrowing on the left. C5-C6: Posterior disk osteophyte complex results in mild narrowing of the bony central canal. Uncovertebral joint hypertrophy and facet hypertrophy result in mild to moderate narrowing of the neural foramina bilaterally, right side worse than left. C6-C7: No significant narrowing of the central canal. Uncovertebral joint hypertrophy results in mild to moderate narrowing of the neural foramina bilaterally, right side worse than left. C7-T1: Unremarkable. Musculature: Normal. No fatty atrophy. Other: The paravertebral and prevertebral soft tissues are unremarkable. The lung apices are clear. IMPRESSION: 1. No acute fracture or malalignment. 2. Multilevel degenerative disk changes with mild chronic bony endplate sclerosis throughout the cervical spine. 3. Degenerative changes result in the following: - C3-C4: Mild narrowing of the right neural foramen. - C4-C5: Mild narrowing of the bony central canal. Mild to moderate narrowing of the right neural foramen and mild narrowing on the left. - C5-C6: Mild narrowing of the bony central canal. Mild to moderate narrowing of the neural foramina bilaterally, right side worse than left. - C6-C7: Mild to moderate narrowing of the neural foramina bilaterally, right side worse than left. RADIA
--- NOTE | 2018-10-03 14:51 | CT Report ---
Reason: TRAUMATIC HEADACHE,UNSPECIFIED FALL Procedure Date: 10/03/2018 Accession Number: [id number] / [id number] Procedure: CT - HEAD WO CPT Code: FULL RESULT: EXAM: CT HEAD EXAM DATE: 10/03/2018 02:07 PM. CLINICAL HISTORY: TRAUMATIC HEADACHE,UNSPECIFIED FALL. COMPARISON: HEAD W/O 11/01/2017 6:09 PM. TECHNIQUE: Multiaxial CT images were obtained from the foramen magnum to the vertex. Reformats: Sagittal and coronal. IV contrast: None. In accordance with CT protocol optimization, one or more of the following dose reduction techniques were utilized for this exam: automated exposure control, adjustment of mA and/or KV based on patient size, or use of iterative reconstructive technique. FINDINGS: Parenchyma: No intraparenchymal hemorrhage. No evidence of mass, midline shift, or CT findings of infarction. Araya-white differentiation is distinct. Extraaxial Spaces: Normal for age. No subdural or epidural collections identified. Ventricles: Normal in size and position. Sinuses and Orbits: Imaged paranasal sinuses, orbits, and mastoids show no significant abnormality. Bones: No evidence of fracture or calvarial defect. Other: None. IMPRESSION: Negative nonenhanced head CT RADIA
--- NOTE | 2018-10-03 15:05 | XRAY Report ---
Reason: TRAUMATIC HEADACHE,UNSPECIFIED FALL Procedure Date: 10/03/2018 Accession Number: [id number] / [id number] Procedure: XR - Thoracic Spine 2 View CPT Code: FULL RESULT: EXAM: THORACIC SPINE RADIOGRAPHY EXAM DATE: 10/03/2018 02:18 PM. CLINICAL HISTORY: Fall 2 weeks ago. Mid thoracic back pain. COMPARISON: CHEST 2 VIEW 08/12/2018 3:02 AM. TECHNIQUE: 3 views. FINDINGS: Alignment: Dextroconvex scoliotic curvature of the midthoracic spine measuring 22 degrees from the superior endplate of T6 to the inferior plate of T11. Bones: The bones are osteopenic. No acute fracture, subluxation, or compression deformity. Disks: Mild disk space narrowing throughout the thoracic spine. Soft Tissues: Postoperative changes to the mediastinum. Heart size is normal. Calcified plaques in the thoracic aorta. The visualized lungs are clear. IMPRESSION: Osteopenia. No acute fracture or malalignment of the thoracic spine. RADIA
--- NOTE | 2018-10-03 15:10 | XRAY Report ---
Reason: TRAUMATIC HEADACHE,UNSPECIFIED FALL Procedure Date: 10/03/2018 Accession Number: [id number] / [id number] Procedure: XR - Lumbar Spine 2 View CPT Code: FULL RESULT: EXAM: LUMBOSACRAL SPINE RADIOGRAPHY EXAM DATE: 10/03/2018 02:18 PM. CLINICAL HISTORY: Fall 2 weeks ago. Low back pain. COMPARISONS: LUMBAR SPINE 2 VIEW 11/05/2017 11:06 AM. TECHNIQUE: 2 views. FINDINGS: Alignment: There is 15 degrees of levoconvex curvature of the lumbar spine, as measured from the superior endplate of T11 to the inferior endplate of L4. Bones: Five [id number] lumbar vertebral bodies are present. The bones are osteopenic. No acute fracture, subluxation, or compression deformity. Disks: Normal. Disk heights are maintained. Facets: Mild multilevel degenerative facet arthropathy. Sacroiliac Joints: Unremarkable. Soft Tissues: Surgical clips project over the right lower abdominal quadrant and right hemipelvis. Calcified plaques in the abdominal aorta. IMPRESSION: Osteopenia. No acute fracture or malalignment of the lumbar spine. RADIA
== END 2018-10-03 13:49 | disposition home or self-care (01) ==
LOC: DI 13:48
PROVIDERS: ATTEND Family Medicine
DX: G44.309 Post-traumatic headache, unspecified, not intractable (principal); M54.5 Low back pain; M85.88 Other specified disorders of bone density and structure, other site; M25.78 Osteophyte, vertebrae; M50.31 Other cervical disc degeneration, high cervical region; M48.02 Spinal stenosis, cervical region; Z91.81 History of falling
CPT/HCPCS: 70450; 72070; 72100; 72125

== ENCOUNTER 2018-10-24 15:30 | Outpatient (CLI) | payer MEDICARE, BC ==
[2018-10-24 18:32] LABS: BASOPHILS % (AUTO) 0.6 %; EOSINOPHILS % (AUTO) 2.3 %; HGB - HEMOGLOBIN 10.8 g/dL (12.0-16.0); LYMPHOCYTES % (AUTO) 22.4 %; MEAN CORPUSCULAR HEMOGLOBIN 25.8 pg (27.0-31.0); MEAN CORPUSCULAR HGB CONC 29.8 g/dL (32.0-36.0); MEAN CORPUSCULAR VOLUME 86.6 fL (81.0-99.0); MONOCYTES % (AUTO) 18.3 %; NEUTROPHILS % (AUTO) 56.1 %; PLT - PLATELET COUNT 401 10^3/uL (130-450); RED BLOOD COUNT 4.19 10^6/uL (4.20-5.40); RED CELL DISTRIBUTION WIDTH 12.7 % (12.0-15.0); WHITE BLOOD COUNT 9.9 x10^3/uL (4.8-10.8)
[2018-10-24 18:40] LABS: ABNORMAL LYMPHS % (MANUAL) 0 %; BAND NEUTROPHILS % (MANUAL) 0 %
[2018-10-24 18:58] LABS: ALBUMIN 3.7 g/dL (3.2-5.5); BILIRUBIN,TOTAL 0.5 mg/dL (0.2-1.0); CREATININE 0.7 mg/dL (0.4-1.0); TOTAL PROTEIN 7.3 g/dL (6.7-8.2)
[2018-10-24 19:43] LABS: DIFFERENTIAL COMMENT MANUAL DIFFERENTIAL; EOSINOPHILS # (MANUAL) 0.2 10^3/uL (0-0.7); LYMPHOCYTES # (MANUAL) 2.2 10^3/uL (1.5-3.5); LYMPHOCYTES % (MANUAL) 22 %; MONOCYTES # (MANUAL) 0.9 10^3/uL (0.0-1.0); NEUTROPHILS # (MANUAL) 6.6 10^3/uL (1.5-6.6); NEUTROPHILS % (MANUAL) 67 %; PLATELET ESTIMATE, MANUAL NORMAL (130-450,000) (NORMAL); PLATELET MORPHOLOGY NORMAL APPEARANCE (NORMAL); RBC MORPHOLOGY (MULTIPLE) NORMAL APPEARANCE (NORMAL)
== END 2018-10-24 23:59 | disposition home or self-care (01) ==
LOC: LAB.WCP 15:30
PROVIDERS: ATTEND Family Medicine
DX: R42 Dizziness and giddiness (principal); I10 Essential (primary) hypertension
CPT/HCPCS: 36415; 80053; 85025

== ENCOUNTER 2018-10-28 01:17 | Emergency (ER) | payer MEDICARE, BC ==
[2018-10-28 01:37] LABS: BASOPHILS # (AUTO) 0.1 10^3/uL (0.0-0.1); BASOPHILS % (AUTO) 0.5 %; EOSINOPHILS # (AUTO) 0.3 10^3/uL (0.0-0.7); EOSINOPHILS % (AUTO) 2.8 %; HGB - HEMOGLOBIN 11.7 g/dL (12.0-16.0); LYMPHOCYTES # (AUTO) 2.9 10^3/uL (1.5-3.5); LYMPHOCYTES % (AUTO) 25.9 %; MEAN CORPUSCULAR HEMOGLOBIN 26.2 pg (27.0-31.0); MEAN CORPUSCULAR HGB CONC 30.4 g/dL (32.0-36.0); MEAN CORPUSCULAR VOLUME 86.1 fL (81.0-99.0); MEAN PLATELET VOLUME 8.7 fL (7.9-10.8); MONOCYTES # (AUTO) 2.1 10^3/uL (0.0-1.0); MONOCYTES % (AUTO) 18.4 %; NEUTROPHILS # (AUTO) 5.8 10^3/uL (1.5-6.6); PLT - PLATELET COUNT 424 10^3/uL (130-450); RED BLOOD COUNT 4.47 10^6/uL (4.20-5.40); RED CELL DISTRIBUTION WIDTH 12.9 % (12.0-15.0); WHITE BLOOD COUNT 11.2 x10^3/uL (4.8-10.8)
[2018-10-28 01:47] LABS: ALBUMIN 3.8 g/dL (3.2-5.5); ALKALINE PHOSPHATASE 113 IU/L (42-121); ALT ALANINE AMINOTRANSFERASE 15 IU/L (10-60); AST ASPARTATE AMINOTRANSFERASE 21 IU/L (10-42); BILIRUBIN,TOTAL < 0.2 mg/dL (0.2-1.0); BUN - BLOOD UREA NITROGEN 18 mg/dL (6-20); CALCIUM 9.3 mg/dL (8.5-10.3); CARBON DIOXIDE - CO2 26 mmol/L (21-32); CHLORIDE 103 mmol/L (101-111); CREATININE 0.5 mg/dL (0.4-1.0); GFR - MDRD 121 (>89); GLUCOSE 126 mg/dL (70-100); LIPASE 56 U/L (22-51); SODIUM 141 mmol/L (135-145); TOTAL PROTEIN 7.8 g/dL (6.7-8.2)
--- NOTE | 2018-10-28 01:47 | ED Physician Documentation ---
History of Present Illness - Stated complaint Stated Complaint: SKIPPING HEART - Chief complaint Chief Complaint: Cardiac - History obtained from History obtained from: Patient, Family - History of Present Illness Timing: Prior to arrival - Additonal information Additional information: This is a 73-year-old woman who presents with her complaints that she felt like her she was having palpitations so she got her blood pressure cuff out and checked her blood pressure her pulse was 130. She did not have any chest pain. She has a little shortness of breath but she relates that to the COPD and she is chronically dizzy. She was concerned because she has a history of atrial flutter that began about 6 months ago and she did not tolerate the metoprolol that she was placed on because it was making her dizzy and she was falling and hitting her head so they just 2 days ago switched her to car Tia 120 mg daily and she quit the metoprolol. She is also placed on a magnesium supplement. She denies history of UT or CHF. She takes aspirin but no other blood thinner. She has had a bit of a headache tonight and has chronic peripheral edema. No nausea or vomiting. She reports a history of dementia. Review of Systems Unable to obtain: Dementia Constitutional: denies: Fever Eyes: reports: Other (Prior intraocular lens implant, 1 just 3 months ago). denies: Loss of vision Cardiac: reports: Palpitations, Pedal edema. denies: Chest pain / pressure Respiratory: reports: Dyspnea GI: denies: Nausea, Vomiting Neurologic: reports: Headache. denies: Generalized weakness, Focal weakness PD PAST MEDICAL HISTORY - Past Medical History Past Medical History: Yes Cardiovascular: Hypertension, Atrial flutter Respiratory: Asthma Neuro: None Endocrine/Autoimmune: None RESEARCH ANIMAL FACILITY SUPERVISOR: Breast cancer - Past Surgical History Past Surgical History: Yes /RESEARCH ANIMAL FACILITY SUPERVISOR: Mastectomy - Present Medications Home Medications: Ambulatory Orders Medication Instructions Recorded Confirmed Metoprolol Tartrate 25 mg PO DAILY #30 tablet 07/11/18 10/28/18 Aspirin [Children's Aspirin] 81 mg PO DAILY 08/05/18 10/28/18 Beclomethasone 40 Mcg [Qvar 40] 1 puffs IH BID 08/05/18 10/28/18 Potassium Chloride 10 meq PO DAILY 08/05/18 10/28/18 diltiaZEM CD [Cardizem Cd] 120 mg PO DAILY 10/28/18 10/28/18 - Allergies Allergies/Adverse Reactions: Allergies Allergy/AdvReac Type Severity Reaction Status Date / Time acetaminophen [From Vicodin] Allergy Unknown Verified 10/28/18 01:38 cephalexin [From Keflex] Allergy Unknown Verified 10/28/18 01:38 codeine Allergy Unknown Verified 10/28/18 01:38 hydrocodone Allergy Unknown Verified 10/28/18 01:38 hydromorphone [From Dilaudid] Allergy Unknown Verified 10/28/18 01:38 oxycodone [From Percocet] Allergy Unknown Verified 10/28/18 01:38 Sulfa (Sulfonamide Allergy Unknown Verified 10/28/18 01:38 Antibiotics) - Social History Does the pt smoke?: No Smoking Status: Never smoker Does the pt drink ETOH?: Yes Does the pt have substance abuse?: No - Immunizations Immunizations are current?: No Immunizations: TDAP >10years/unknown - POLST Patient has POLST: No PD ED PE NORMAL - Vitals Vital signs reviewed: Yes - General General: Alert and oriented X 3, No acute distress, Well developed/nourished, Other (Thin 73 year old woman who is cery pleasant) - Neck Neck: Supple, no meningeal sign, Thyroid normal, No JVD - Cardiac Cardiac: RRR, No murmur, No gallop, No rub, Strong equal pulses - Respiratory Respiratory: No respiratory distress, Clear bilaterally - Abdomen Abdomen: Normal bowel sounds, Soft, Non tender, Non distended, No organomegaly - Derm Derm: Normal color, Warm and dry, No rash - Extremities Extremities: No edema - Neuro Neuro: Alert and oriented X 3, 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47 Hgb 11.7 L Hct 38.5 MCV 86.1 MCH 26.2 L MCHC 30.4 L RDW 12.9 Plt Count 424 MPV 8.7 Neut # (Auto) 5.8 Lymph # (Auto) 2.9 [place] # (Auto) 2.1 H Eos # (Auto) 0.3 Baso # (Auto) 0.1 Absolute Nucleated RBC 0.00 Nucleated RBC % 0.0 Sodium 141 Potassium 3.8 Chloride 103 Carbon Dioxide 26 Anion Gap 12.0 BUN 18 Creatinine 0.5 Estimated GFR (MDRD) 121 Glucose 126 H Calcium 9.3 Magnesium Total Bilirubin < 0.2 L AST 21 ALT 15 Alkaline Phosphatase 113 Troponin I < 0.04 Total Protein 7.8 Albumin 3.8 Globulin 4.0 Albumin/Globulin Ratio 1.0 Lipase 56 H 10/28/18 01:27 WBC RBC Hgb Hct MCV MCH MCHC RDW Plt Count MPV Neut # (Auto) Lymph # (Auto) [place] # (Auto) Eos # (Auto) Baso # (Auto) Absolute Nucleated RBC Nucleated RBC % Sodium 143 Potassium 3.9 Chloride 106 Carbon Dioxide 26 Anion Gap 11.0 BUN 18 Creatinine 0.6 Estimated GFR (MDRD) 98 Glucose 125 H Calcium 9.4 Magnesium 2.0 Total Bilirubin AST ALT Alkaline Phosphatase Troponin I Total Protein Albumin Globulin Albumin/Globulin Ratio Lipase PD MEDICAL DECISION MAKING - ED course Complexity details: reviewed old records, reviewed results, d/w patient, d/w family (Patient was in a sinus rhythm here in the emergency department.She was no longer feeling like she had palpitations. Her electrolytes and magnesium are normal and her hemoglobin was normal. She will be discharged home for outpatient follow-up with her [facility].) Departure - Departure Disposition: Home, Self Care Clinical Impression: Heart palpitations Condition: Good Instructions: Atrial Fibrillation Dc Follow-Up: Marbella Holbrook PA [Primary Care Provider] - Comments: Continue to take the new [place] medication as prescribed as well as the magnesium supplement. 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
[2018-10-28 02:12] LABS: CALCIUM 9.4 mg/dL (8.5-10.3); CREATININE 0.6 mg/dL (0.4-1.0)
[2018-10-28 03:09] VITALS: BP 117/62
== END 2018-10-28 03:35 | disposition home or self-care (01) ==
LOC: ED 01:17
DX: R00.2 Palpitations (principal); F03.90 Unspecified dementia, unspecified severity, without behavioral disturbance, psychotic disturbance, mood disturbance, and anxiety; I10 Essential (primary) hypertension
CPT/HCPCS: 36415; 80048; 80053; 83690; 83735; 84484; 85025; 93005; 99284

== ENCOUNTER 2018-10-30 15:03 | Outpatient (CLI) | payer MEDICARE, BC ==
[2018-10-30 19:35] LABS: % IRON SATURATION 4 % (20-50); IRON 13 ug/dL (28-170); TOTAL IRON BINDING CAPACITY 316 ug/dL (250-450); TRANSFERRIN 226 mg/dL (192-382)
[2018-10-30 19:47] LABS: FERRITIN 26.3 ng/mL (11.0-306.8)
[2018-10-30 19:51] LABS: FOLATE 17.4 ng/mL (5.90 - >24.8)
== END 2018-10-30 23:59 | disposition home or self-care (01) ==
LOC: LAB.WCP 15:03
PROVIDERS: ATTEND Family Medicine
DX: D64.9 Anemia, unspecified (principal)
CPT/HCPCS: 36415; 82607; 82728; 82746; 83540; 84466

== ENCOUNTER 2018-12-04 14:26 | Emergency (ER) | payer MEDICARE, BC ==
[2018-12-04 14:42] VITALS: BP 138/69
[2018-12-04] MEDS ORDERED: CHERRY SYRUP 10 ML UDC PO ONE (15:23)
[2018-12-04] MEDS ORDERED: IPRATROPIUM/ALBUTEROL 3 ML NEB INH STA (15:23)
[2018-12-04] MEDS ORDERED: DEXAMETHASONE 10 MG/ML VIAL PO STA (15:23)
--- NOTE | 2018-12-04 15:26 | ED Physician Documentation ---
PD HPI DYSPNEA - Stated complaint Stated Complaint: SOA - Chief complaint Chief Complaint: Resp - History obtained from History obtained from: Patient, Family - History of Present Illness Timing - onset: How many weeks ago (2) Timing - onset during: Rest Timing - duration: Weeks (2) Timing - details: Gradual onset, Still present Inciting event(s): URI Improved by: Steroids Worsened by: Exertion, Coughing Associated symptoms: Cough, Wheezing Similar symptoms before: Diagnosis (COPD) Recently seen: Clinic - Additional information Additional information: 73-year-old female first survivor of breast cancer who has a history of the COPD and atrial fibrillation has had an increase in her cough she is producing some sputum she has had increasing shortness of breath. She has run out of her Qvar and about 1 week after being out of that she began to get increasing shortness of breath and she felt that the albuterol did not seem to help this much in her shortness of breath became progressively worse. She has gone back into see her doctor to get a refill of her Qvar and despite taking this her breathing is getting worse and she is interpreted this as she is having a reaction to the Qvar. Review of Systems Constitutional: denies: Fever Eyes: denies: Decreased vision Ears: denies: Ear pain Nose: reports: Congestion. denies: Rhinorrhea / runny nose Throat: denies: Sore throat Cardiac: reports: Palpitations. 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 - Past Surgical History Past Surgical History: Yes /AUTOMOTIVE SERVICE CONSULTANT: Mastectomy - Present Medications Home Medications: Ambulatory Orders Medication Instructions Recorded Confirmed Metoprolol Tartrate 25 mg PO DAILY #30 tablet 07/11/18 10/28/18 Aspirin [Children's Aspirin] 81 mg PO DAILY 08/05/18 10/28/18 Beclomethasone 40 Mcg [Qvar 40] 1 puffs IH BID 08/05/18 10/28/18 Potassium Chloride 10 meq PO DAILY 08/05/18 10/28/18 diltiaZEM CD [Cardizem Cd] 120 mg PO DAILY 10/28/18 10/28/18 Azithromycin [Zithromax] 250 mg PO DAILY #6 tablet 12/04/18 predniSONE [Deltasone] 10 mg PO ONCE #26 tablet 12/04/18 - Allergies Allergies/Adverse Reactions: Allergies Allergy/AdvReac Type Severity Reaction Status Date / Time acetaminophen [From Vicodin] Allergy Unknown Verified 10/28/18 01:38 cephalexin [From Keflex] Allergy Unknown Verified 10/28/18 01:38 codeine Allergy Unknown Verified 10/28/18 01:38 hydrocodone Allergy Unknown Verified 10/28/18 01:38 hydromorphone [From Dilaudid] Allergy Unknown Verified 10/28/18 01:38 oxycodone [From Percocet] Allergy Unknown Verified 10/28/18 01:38 Sulfa (Sulfonamide Allergy Unknown Verified 10/28/18 01:38 Antibiotics) - Social History Does the pt smoke?: No Smoking Status: Never smoker Does the pt drink ETOH?: Yes Does the pt have substance abuse?: No - Immunizations Immunizations are current?: No Immunizations: TDAP >10years/unknown - POLST Patient has POLST: No PD ED PE NORMAL - Vitals Vital signs reviewed: Yes (hypertensive ) - General General: Alert and oriented X 3, No acute distress, Well developed/nourished - HEENT HEENT: Atraumatic, PERRL, EOMI, Ears normal - Neck Neck: Supple, no meningeal sign - Cardiac Cardiac: RRR, No murmur - Respiratory Respiratory: No respiratory distress, Other (markedly diminished breath sounds without focal wheeze or rhonchi. 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, No motor deficit, No sensory deficit, Normal speech Eye Opening: Spontaneous Motor: Obeys Commands Verbal: Oriented GCS Score: 15 - Psych Psych: Normal mood, Normal affect Results - Vitals Vitals: Vital Signs - 24 hr 12/04/18 12/04/18 14:36 15:46 Temperature 36.7 C Heart Rate 85 80 Respiratory 16 16 Rate Blood Pressure 138/69 H O2 Saturation 96 Oxygen O2 Source Room air - Rads (name of study) chest 2 view Radiology: Prelim report reviewed (Impression: No acute infiltrates or edema.), EMP read indepedently, See rad report PD MEDICAL DECISION MAKING - ED course Complexity details: reviewed results, re-evaluated patient, considered differential, d/w patient, d/w family ED course: 73-year-old female with a history of COPD is a poor historian and interprets her reactions to medications usually negatively. I was able to pull the history back out of the patient of her prior episode of similar symptoms and at that time it does appear she improved with the use of the prednisone taper and the azithromycin and she was able then to maintain her COPD with the Qvar. When she ran out of the Qvar she began to get more short of breath and despite refilling it she is continuing to get short of breath. I discussed with the patient the need to reduce inflammation her lungs and the need to do another course of prednisone. In the emergency department she is administered 10 mg of dexamethasone and given a DuoNeb treatment and we will again put her on a taper of prednisone and azithromycin and she will continue her Qvar. Departure - Departure Disposition: 01 Home, Self Care Clinical Impression: COPD with exacerbation Condition: Stable Instructions: ED COPD Flare Follow-Up: Marbella Holbrook PA [Primary Care Provider] - Prescriptions: Azithromycin [Zithromax] 250 mg PO DAILY #6 tablet predniSONE [Deltasone] 10 mg PO ONCE #26 tablet
--- NOTE | 2018-12-04 16:21 | XRAY Report ---
Reason: cough soa Procedure Date: 12/04/2018 Accession Number: [id number] / [id number] Procedure: XR - Chest 2 View X-Ray CPT Code: 48050 FULL RESULT: EXAM: CHEST RADIOGRAPHY EXAM DATE: 12/04/2018 04:01 PM. CLINICAL HISTORY: Cough, shortness of breath. COMPARISON: THORACIC SPINE 2 VIEW 10/03/2018 2:01 PM CHEST 2 VIEW 08/12/2018 3:02 AM. TECHNIQUE: 2 views. FINDINGS: Lungs/Pleura: No focal opacities evident. No pleural effusion. No pneumothorax. Normal volumes. Mediastinum: Heart and mediastinal contours are unremarkable. Other: Stable vascular clips noted in the left anterior chest from prior surgery. IMPRESSION: No acute infiltrates or edema. RADIA
== END 2018-12-04 16:31 | disposition home or self-care (01) ==
LOC: ED 14:26
DX: J44.1 Chronic obstructive pulmonary disease with (acute) exacerbation (principal); I10 Essential (primary) hypertension
CPT/HCPCS: 71046; 94640; 99283; 99284; A9270

== ENCOUNTER 2018-12-24 14:52 | Outpatient (CLI) | payer MEDICARE, BC ==
[2018-12-24 19:05] LABS: CALCIUM 8.9 mg/dL (8.5-10.3); CREATININE 0.7 mg/dL (0.4-1.0)
== END 2018-12-24 23:59 | disposition home or self-care (01) ==
LOC: LAB.WCP 14:52
PROVIDERS: ATTEND Physician Assistant
DX: I10 Essential (primary) hypertension (principal)
CPT/HCPCS: 36415; 80048

== ENCOUNTER 2018-12-30 16:12 | Outpatient (CLI) | payer MEDICARE, BC ==
[2018-12-30] MEDS ORDERED: GADOBUTROL 7.5 MMOL/7.5 ML VIAL ONE (18:13)
[2018-12-30] MEDS ORDERED: GADOBUTROL 7.5 MMOL/7.5 ML VIAL IVP ONE (18:24)
--- NOTE | 2018-12-31 08:58 | MRI Report ---
Reason: DIZINESS Procedure Date: 12/30/2018 Accession Number: [id number] / [id number] Procedure: MRI - Angio Brain W/O (MRA) CPT Code: FULL RESULT: EXAM MRA BRAIN EXAM DATE: 12/30/2018 05:00 PM. CLINICAL HISTORY: Dizziness. COMPARISON: HEAD W/O 10/03/2018 1:56 PM. TECHNIQUE: Multiplanar, multisequence MRA sequences of the brain were performed. Other: None. Post-processing: Multiplanar 3D MIP reconstructions. IV Contrast: None. FINDINGS: The bilateral V3 segments of the vertebral arteries are smooth and nonstenotic. The right vertebral artery intradural segment is smooth and nonstenotic. The left vertebral artery intradural segment is smooth and nonstenotic. The right posterior inferior cerebellar artery is without flow-limiting stenosis. The left posterior-inferior cerebellar artery is without flow-limiting stenosis. The right anterior inferior cerebellar artery is smooth and nonstenotic. There is a hypoplastic left anterior inferior cerebellar artery suggested. Overall, it is somewhat poorly demonstrated which is likely secondary to its small size. Therefore, its evaluation is limited. The basilar artery is without flow-limiting stenosis. The right superior cerebellar artery is without flow-limiting stenosis. The left superior cerebellar artery is without flow-limiting stenosis. The left P1 and P2 segments of the left posterior cerebral artery are without flow-limiting stenosis. The right P1 and P2 segments of the right posterior cerebral artery are without flow-limiting stenosis. There is a small left posterior communicating artery. The right intracranial internal carotid artery is smooth and nonstenotic. The left intracranial internal carotid artery is smooth and nonstenotic. The right M1 and proximal M2 segments of the right middle cerebral artery are smooth and nonstenotic. The left M1 and proximal M2 segments of the left middle cerebral artery are smooth and nonstenotic. The right A1 segment is smooth and nonstenotic. The left A1 segment is smooth and nonstenotic. There is questionable fenestration of the anterior communicating artery. This is a common anatomical variant. The right A2 segment of the right anterior cerebral artery is smooth and nonstenotic. The left A2 segment of the left anterior cerebral artery is smooth and nonstenotic. IMPRESSION: 1. There is no hemodynamically significant stenosis within the head. There is no evidence of cerebral aneurysm.
--- NOTE | 2018-12-31 08:58 | MRI Report ---
Reason: DIZINESS Procedure Date: 12/30/2018 Accession Number: [id number] / [id number] Procedure: MRI - Angio Neck W/O (MRA) CPT Code: FULL RESULT: EXAM: MR ANGIOGRAM NECK WITHOUT CONTRAST EXAM DATE: 12/30/2018 06:06 PM. CLINICAL HISTORY: Dizziness. COMPARISON: None. TECHNIQUE: Multiplanar, multisequence MRA sequences of the neck were performed. Other: None. Post-processing: Multiplanar 3D MIP reconstructions. IV Contrast: None. Evaluation of arterial stenosis is based on a NASCET method of measurement. FINDINGS: The images are degraded by motion. The vascular flow voids within the neck are patent. The right vertebral artery V1, V2, V3 segments are without flow limiting stenosis. The left vertebral artery V1, V2, and V3 segments are without flow limiting stenosis. The right common carotid artery, carotid bulb, and extracranial right internal carotid artery are smooth and nonstenotic. The left common carotid artery, carotid bulb, and extracranial left internal carotid artery are smooth and nonstenotic. IMPRESSION: 1. There is no hemodynamically significant stenosis within the neck.
--- NOTE | 2018-12-31 09:16 | MRI Report ---
Reason: DIZINESS Procedure Date: 12/30/2018 Accession Number: [id number] / [id number] Procedure: MRI - Brain W/WO CPT Code: FULL RESULT: EXAM: MRI BRAIN WITHOUT AND WITH CONTRAST EXAM DATE: 12/30/2018 06:29 PM. CLINICAL HISTORY: Dizziness. COMPARISON: BRAIN ANGIO W/O 12/30/2018 4:46 PM NECK ANGIO W/O 12/30/2018 5:19 PM HEAD W/O 10/03/2018 1:56 PM. TECHNIQUE: Multiplanar, multisequence T1-weighted and fluid-sensitive MR sequences of the brain were performed before and after administration of intravenous contrast. Sequences optimized for routine evaluation. Other: None. IV Contrast: 5 mL Gadavist. FINDINGS: The diffusion-weighted images are normal. There is no evidence of acute or subacute cerebral infarction. The FLAIR images demonstrate a few punctuate T2 hyperintensities within the subcortical, deep, and periventricular white matter. This is consistent with a minimal degree of chronic small vessel ischemia. There is no significant generalized volume loss. The T2* sequence is normal. There is no evidence of subacute or chronic hemorrhage. There is normal enhancement within the deep venous sinuses. There is normal enhancement within the brain parenchyma. There is deviation of the nasal septum to the right. There is a suggestion of a bony spur with abutment of the right inferior turbinate. The paranasal sinuses are normally aerated. The bilateral parotid spaces exhibit normal signal intensity. The cerebral vascular flow voids are patent. IMPRESSION: 1. There is no evidence of acute or subacute cerebral infarction. 2. There is minimal degree of chronic small vessel ischemia. 3. There is no evidence of brain mass. 4. There is deviation of the nasal septum to the right with a suggestion of a bony spur abutting the right inferior turbinate.
== END 2018-12-30 16:13 | disposition home or self-care (01) ==
LOC: DI 16:12
PROVIDERS: ATTEND Physician Assistant
DX: R42 Dizziness and giddiness (principal); I67.82 Cerebral ischemia; J34.2 Deviated nasal septum
CPT/HCPCS: 70547; 70553; A9585; 70544

== ENCOUNTER 2019-01-10 13:12 | Outpatient (CLI) | payer MEDICARE, BC | END 2019-01-10 13:13 | disposition home or self-care (01) | LOC: RT 13:12 | PROVIDERS: ATTEND Internal Medicine | DX: J43.9 Emphysema, unspecified (principal) | CPT/HCPCS: 94010; 94729 ==

== ENCOUNTER 2019-01-15 14:10 | Emergency (ER) | payer MEDICARE, BC ==
--- NOTE | 2019-01-15 16:13 | ED Physician Documentation ---
PD HPI SKIN - Stated complaint Stated Complaint: GROIN IRRITATION - Chief complaint Chief Complaint: Wound - History obtained from History obtained from: Patient - History of Present Illness Timing - onset: How many days ago (2) Timing - duration: Days (2) Timing - details: Abrupt onset ([place] a sudden pain in her medial left thigh while sitting indoors. She thought it was a bug bite. She is not aware of a bug at the time. However did have an abrupt onset of pain and then swelling over the next hour or 2 which continued to increase overnight and into the next day. It seems to have plateaued but has persisted without worsening but no improvement. 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 : Incontinence - Past Surgical History Past Surgical History: Yes /STEAM GIGGER: Mastectomy - Present Medications Home Medications: Ambulatory Orders Medication Instructions Recorded Confirmed Aspirin [Children's Aspirin] 81 mg PO DAILY 08/05/18 01/15/19 Beclomethasone 40 Mcg [Qvar 40] 1 puffs IH BID PRN 08/05/18 01/15/19 Potassium Chloride 10 meq PO DAILY 08/05/18 01/15/19 diltiaZEM CD [Cardizem Cd] 120 mg PO BID 10/28/18 01/15/19 Cetirizine [ZyrTEC] 10 mg PO DAILY #15 tablet 01/15/19 Curcumin 500 mg PO DAILY 01/15/19 01/15/19 Doxycycline Hyclate 100 mg PO BID #14 capsule 01/15/19 Ferrous Sulfate [High Potency Iron] 65 mg PO DAILY 01/15/19 01/15/19 Lysine [l-Lysine] 500 mg PO DAILY 01/15/19 01/15/19 Magnesium Oxide [Magnesium] 1 cap PO DAILY 01/15/19 01/15/19 Multivitamin [One-Daily 1 tab PO DAILY 01/15/19 01/15/19 Multi-Vitamin] Polyethylene Glycol 3350 [Miralax] 1 tbs PO DAILY PRN 01/15/19 01/15/19 dexAMETHasone [Decadron] 4 mg PO DAILY #5 tablet 01/15/19 - Allergies Allergies/Adverse Reactions: Allergies Allergy/AdvReac Type Severity Reaction Status Date / Time acetaminophen [From Vicodin] Allergy Unknown Verified 01/15/19 14:20 cephalexin [From Keflex] Allergy Unknown Verified 01/15/19 14:20 codeine Allergy Unknown Verified 01/15/19 14:20 hydrocodone Allergy Unknown Verified 01/15/19 14:20 hydromorphone [From Dilaudid] Allergy Unknown Verified 01/15/19 14:20 oxycodone [From Percocet] Allergy Unknown Verified 01/15/19 14:20 Sulfa (Sulfonamide Allergy Unknown Verified 01/15/19 14:20 Antibiotics) - Social History Does the pt smoke?: No Smoking Status: Unknown if ever smoked Does the pt drink ETOH?: Yes Does the pt have substance abuse?: No - Immunizations Immunizations are current?: No Immunizations: TDAP >10years/unknown - POLST Patient has POLST: No PD ED PE NORMAL - Vitals Vital signs reviewed: Yes - General General: Alert and oriented X 3, No acute distress, Well developed/nourished - Derm Derm: Normal color, Warm and dry - Extremities Extremities: Other (medial left thigh with area of firmness, no fluctuance, redness, and some tender and itchy. Demarcated area. No inguinal adenopathy. ) Results - Vitals Vitals: Oxygen O2 Source Room air PD MEDICAL DECISION MAKING - ED course Complexity details: considered differential (at this point, would still be local reaction. Too early for infection most likely. ), d/w patient Departure - Departure Disposition: 01 Home, Self Care Clinical Impression: Local reaction to insect sting Qualifiers: Encounter type: initial encounter Injury intent: undetermined intent Qualified Code(s): T63.484A - Toxic effect of venom of other arthropod, undetermined, initial encounter Condition: Stable Record reviewed to determine appropriate education?: Yes Instructions: ED Bite Sting Insect Local Allergic React Follow-Up: Marbella Holbrook PA [Primary Care Provider] - Prescriptions: Cetirizine [ZyrTEC] 10 mg PO DAILY #15 tablet dexAMETHasone [Decadron] 4 mg PO DAILY #5 tablet Doxycycline Hyclate 100 mg PO BID #14 capsule Comments: Cool towels to the area periodically to reduce redness and swelling. He can continue the topical tea tree or alternatively consider hydrocortisone or Arnica. This sounds like a persisting local reaction so we will treat it with cetirizine antihistamine and Decadron steroid daily for the next 5 days. He should diminish and go away during that time over the next couple of days. If it has increasing redness or swelling beyond today, then concern would be for additional infection as well as a local reaction and then add the doxycycline antibiotic. I would not use antibiotic at this point. Discharge Date/Time: 01/15/19 17:02
[2019-01-15] MEDS ORDERED: CETIRIZINE 10 MG TABLET PO STA (16:38)
[2019-01-15] MEDS ORDERED: diphenhydrAMINE 25 MG CAPSULE PO STA (16:38)
[2019-01-15] MEDS ORDERED: CHERRY SYRUP 10 ML UDC PO ONE (16:38)
[2019-01-15] MEDS ORDERED: DEXAMETHASONE 10 MG/ML VIAL PO STA (16:38)
[2019-01-15 16:53] VITALS: BP 122/60
== END 2019-01-15 17:02 | disposition home or self-care (01) ==
LOC: ED 14:10
DX: T63.481A Toxic effect of venom of other arthropod, accidental (unintentional), initial encounter (principal); M79.652 Pain in left thigh; X58.XXXA Exposure to other specified factors, initial encounter; I10 Essential (primary) hypertension; Z79.82 Long term (current) use of aspirin
CPT/HCPCS: 99283; A9270

== ENCOUNTER 2019-01-31 15:34 | Outpatient (CLI) | payer MEDICARE, BC ==
--- NOTE | 2019-01-31 18:17 | Ultrasound Report ---
Reason: LEG EDEMA LEFT Procedure Date: 01/31/2019 Accession Number: [id number] / [id number] Procedure: US - Duplex Ext Veins Left CPT Code: FULL RESULT: EXAM: LEFT LOWER EXTREMITY VENOUS ULTRASOUND EXAM DATE: 01/31/2019 04:50 PM. CLINICAL HISTORY: LEG EDEMA LEFT. COMPARISON: None. TECHNIQUE: Real-time sonographic vascular imaging was performed by the instructor nurse through the lower extremity utilizing both color-flow and Doppler spectral analysis. Multiple sales solutions representative static images were saved for review. FINDINGS: Common Femoral Vein (CFV): Normal. CFV-GSV Junction: Normal. Profunda Femoral Vein (PFV): Normal. Femoral Vein (FV) Prox: Normal. Femoral Vein (FV) Mid: Normal. Femoral Vein (FV) Dist: Normal. Popliteal Vein: Normal. Posterior Tibial Veins: Normal. Peroneal Veins: Normal. Other: None. IMPRESSION: No evidence for deep venous thrombosis in the left lower extremity. PEARL The call report notification system was initiated by Dr. Harinder Munguia at 06:16 PM on 01/31/2019.
== END 2019-01-31 15:35 | disposition home or self-care (01) ==
LOC: DI 15:34
PROVIDERS: ATTEND Physician Assistant
DX: R60.0 Localized edema (principal)

== ENCOUNTER 2019-03-01 14:58 | Outpatient (CLI) | payer MEDICARE, BC ==
[2019-03-01 15:29] LABS: ALBUMIN 3.9 g/dL (3.2-5.5); ALBUMIN/GLOBULIN RATIO 1.1 (1.0-2.2); BILIRUBIN,TOTAL 0.7 mg/dL (0.2-1.0); CREATININE 0.7 mg/dL (0.4-1.0); TOTAL PROTEIN 7.6 g/dL (6.7-8.2)
[2019-03-01 15:39] LABS: CREATININE,URINE 89.2 mg/dL; MICROALBUM/CREATININE RATIO,UR 7.8 ug/mg (<30.0); MICROALBUMIN,URINE 0.7 mg/dL (0-300.0)
== END 2019-03-01 14:59 | disposition home or self-care (01) ==
LOC: LAB 14:58
PROVIDERS: ATTEND Physician Assistant
DX: R60.0 Localized edema (principal)
CPT/HCPCS: 36415; 80053; 82043; 82570

== ENCOUNTER 2019-07-04 10:51 | Outpatient (CLI) | payer MEDICARE, BC ==
--- NOTE | 2019-07-04 15:44 | CT Report ---
Reason: WT LOSS, ABN CHT CT APPROX. 5 MONTHS AGO Procedure Date: 07/04/2019 Accession Number: [id number] / [id number] Procedure: CT - CHEST WO CPT Code: Final Report FULL RESULT: EXAM: CT CHEST EXAM DATE: 07/04/2019 11:20 AM. CLINICAL HISTORY: WT LOSS, abnormal CHEST CT APPROX. 5 MONTHS AGO. COMPARISONS: CHEST W/O 02/21/2019 3:21 PM. TECHNIQUE: Routine helical CT imaging was performed through the chest. IV contrast: None. Reconstructions: Coronal and sagittal. In accordance with CT protocol optimization, one or more of the following dose reduction techniques were utilized for this exam: automated exposure control, adjustment of mA and/or KV based on patient size, or use of iterative reconstructive technique. FINDINGS: Lungs/Pleura: Accounting for differences in slice selection, similar somewhat nodular subpleural opacity at the lateral right upper lobe measuring up to approximately 9 mm thickness (4/102). Other similar areas of scattered subpleural opacity in the lungs bilaterally was pronounced at the upper lung zones. Stable 3 mm left lower lobe nodule (4/179). No significant new enlarging pulmonary nodule. No pleural effusion or pneumothorax. Airways appear patent. Mediastinum: No pathologic lymphadenopathy by CT size criteria. Mild coronary artery calcifications. Heart size is normal. No pericardial effusion. Left mastectomy, axillary surgical changes. Linear calcification along the right anterior chest wall as before. Bones: Unremarkable. Visualized Abdomen: Unremarkable. Other: None. IMPRESSION: 1. Similar scattered areas of subpleural opacity most pronounced at the upper lung zones bilaterally. 2. Similar somewhat nodular 9 mm subpleural opacity at the lateral right upper lobe and 3 mm left lower lobe pulmonary nodule. Recommend continued CT followup in 14-20 months per Fleischner Society 2017 guidelines. 3. Other findings as noted above. RADIA
== END 2019-07-04 10:52 | disposition home or self-care (01) ==
LOC: DI 10:51
PROVIDERS: ATTEND Internal Medicine
DX: R91.8 Other nonspecific abnormal finding of lung field (principal)
CPT/HCPCS: 71250

== ENCOUNTER 2019-07-24 10:57 | Outpatient (CLI) | payer MEDICARE, BC ==
[2019-07-24] MEDS ORDERED: IOVERSOL 320 50 ML VIAL ONE (11:06)
[2019-07-24] MEDS ORDERED: IOVERSOL 320 100 ML VIAL IVP ONE ×2 (11:07→13:40)
[2019-07-24] MEDS ORDERED: IOVERSOL 320 50 ML VIAL PO ONE (13:40)
--- NOTE | 2019-07-25 03:02 | CT Report ---
Reason: ABNORMAL WEIGHT LOSS Procedure Date: 07/24/2019 Accession Number: [id number] / [id number] Procedure: CT - Abdomen/Pelvis W CPT Code: Final Report FULL RESULT: EXAM: CT ABDOMEN AND PELVIS EXAM DATE: 07/24/2019 12:23 PM. CLINICAL HISTORY: ABNORMAL WEIGHT LOSS. COMPARISONS: None. TECHNIQUE: Routine helical CT imaging was performed through the abdomen and pelvis. IV contrast: OPTIRAY 320. Enteric contrast: Yes. Reconstructions: Coronal and sagittal. In accordance with CT protocol optimization, one or more of the following dose reduction techniques were utilized for this exam: automated exposure control, adjustment of mA and/or KV based on patient size, or use of iterative reconstructive technique. FINDINGS: Lung Bases: Unremarkable. Liver: There are a few small scattered hepatic cysts. Gallbladder/Bile Ducts: Unremarkable. Spleen: Normal. Pancreas: Normal. Adrenal Glands: Normal. Kidneys: Normal. No masses or hydronephrosis. Peritoneal Cavity/Bowel: There are a few small borderline sized retroperitoneal lymph nodes the largest to the left of the aorta measuring up to 10 mm in short axis diameter there is no free fluid. The small bowel is unremarkable. There are no inflammatory changes. There are multiple colonic diverticula without evidence for diverticulitis. The appendix is normal. Pelvic Organs: The uterus is been resected. Vasculature: No aneurysms or other significant abnormality. Bones: No significant abnormality. Other: None. IMPRESSION: 1. No definite findings to explain clinical symptoms. RADIA
== END 2019-07-24 10:58 | disposition home or self-care (01) ==
LOC: DI 10:57
PROVIDERS: ATTEND Internal Medicine
DX: R63.4 Abnormal weight loss (principal)
CPT/HCPCS: 74177; Q9967

== ENCOUNTER 2019-10-03 15:50 | Outpatient (CLI) | payer MEDICARE, BC ==
--- NOTE | 2019-10-03 18:07 | CT Report ---
PROCEDURE: MAXILLOFACIAL WO INDICATIONS: CONTUSION OF OTHER PART OF HEAD TECHNIQUE: Noncontrast 1.5 mm thick axial images acquired from the mandible through the frontal sinuses, with co tanya and sagittal reformatting. For radiation dose reduction, the following was used: automated ex posure control, adjustment of mA and/or kV according to patient size. COMPARISON: None. FINDINGS: Image quality: Excellent. Bones and teeth: In this patient with this given history, scrutiny is given to the mandible. No leonard ible fractures or dislocations can be seen. Degenerative changes are seen of the temporomandibular levon ints. Orbital barber are intact. Sinus barber show no fracture or deformity. Nasal bones and septum are int act. Zygomatic arches are intact. Pterygoid plates are intact. Visualized portions of the skull ba se and auditory canals are intact. Sinuses: Paranasal sinuses are aerated, without fluid levels, mucosal thickening, or mucoceles. Mas toid air cells are aerated. There is a prominent rightward directed bony nasal septal spur. The osti omeatal complexes are patent, yet they are constitutionally narrowed, right worse than left. Infraorb ital air cells are seen on the right. Soft tissues: No edema, masses, or fluid collections. No enlarged lymph nodes. No soft tissue lace rations or debris. Vascular: Visualized vascular structures appear normal in the absence of contrast. Bony vascular fo ramina and canals are intact. IMPRESSION: No mandible fracture or dislocation can be seen. Temporomandibular joint degenerative change is seen. Narrowed ostiomeatal complexes, right worse than left. Prominent rightward nasal septal spur. Reviewed by: Erich Valencia MD on 10/03/2019 5:06 PM YRIS Approved by: Erich Valencia MD on 10/03/2019 5:06 PM AKMELINDA Station ID: [id number]
== END 2019-10-03 15:51 | disposition home or self-care (01) ==
LOC: DI 15:50
PROVIDERS: ATTEND Nurse Practitioner Family
DX: M26.69 Other specified disorders of temporomandibular joint (principal); J34.89 Other specified disorders of nose and nasal sinuses
CPT/HCPCS: 70486

== ENCOUNTER 2019-10-20 15:05 | Emergency (ER) | payer MEDICARE, BC ==
[2019-10-20] MEDS ORDERED: TETANUS/DIPHTHERIA/PERTUSSIS 0.5 ML SYRINGE IM ONE (16:13)
--- NOTE | 2019-10-20 16:16 | ED Physician Documentation ---
PD HPI WOUND RECHECK - Stated complaint Stated Complaint: WOUND ON RIGHT ARM - Chief complaint Chief Complaint: Wound - Histroy obtained from History obtained from: Patient (She fell 2 days ago. Tetanus is not up-to-date. She has skin tears on the left arm that continue to bleed. 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 : Incontinence - Past Surgical History Past Surgical History: Yes /BELT WORKER: Mastectomy - Present Medications Home Medications: Ambulatory Orders Medication Instructions Recorded Confirmed Aspirin [Children's Aspirin] 81 mg PO DAILY 08/05/18 01/15/19 Beclomethasone 40 Mcg [Qvar 40] 1 puffs IH DAILY 08/05/18 01/15/19 diltiaZEM CD [Cardizem Cd] 120 mg PO BID 10/28/18 05/14/19 Magnesium Oxide [Magnesium] 1 cap PO DAILY 01/15/19 01/15/19 Multivitamin [One-Daily 1 tab PO DAILY 01/15/19 05/14/19 Multi-Vitamin] - Allergies Allergies/Adverse Reactions: Allergies Allergy/AdvReac Type Severity Reaction Status Date / Time acetaminophen [From Vicodin] Allergy Unknown Verified 10/20/19 15:13 cephalexin [From Keflex] Allergy Unknown Verified 10/20/19 15:13 codeine Allergy Unknown Verified 10/20/19 15:13 hydrocodone Allergy Unknown Verified 10/20/19 15:13 hydromorphone [From Dilaudid] Allergy Unknown Verified 10/20/19 15:13 oxycodone [From Percocet] Allergy Unknown Verified 10/20/19 15:13 Sulfa (Sulfonamide Allergy Unknown Verified 10/20/19 15:13 Antibiotics) - Social History Does the pt smoke?: No Smoking Status: Never smoker Does the pt drink ETOH?: Yes Does the pt have substance abuse?: No - Immunizations Immunizations are current?: No Immunizations: TDAP >10years/unknown - POLST Patient has POLST: No PD ED PE NORMAL - Vitals Vital signs reviewed: Yes - General General: Alert and oriented X 3, Other (She is very soft-spoken) - Extremities Extremities: Other (Shallow small skin tears on the dorsum of the left arm without active bleeding.) - Neuro Neuro: Alert and oriented X 3, Normal speech Results - Vitals Vitals: Vital Signs - 24 hr 10/20/19 15:10 Temperature 36.7 C Heart Rate 61 Respiratory 18 Rate Blood Pressure 142/85 H O2 Saturation 97 Oxygen O2 Source Room air Procedures - Laceration (location) L arm Length in cm: 4 Wound type: Superficial Wound Preparation: Irrigated copiously NS Skin layer closure: Dermabond, Steri strips Other: Tetanus booster given Complexity: Simple Departure - Departure Disposition: 01 Home, Self Care Clinical Impression: Skin tear of upper extremity Condition: Good Record reviewed to determine appropriate education?: Yes Instructions: ED Laceration Ext Skin Glue Comments: You were seen today for some skin tears on the left arm. Given your report of persistent bleeding they were covered up with some glue. Watch closely for signs of infection and return for increased pain, drainage, redness. Follow-up with your doctor, next available appointment given frequent falls.
[2019-10-20 16:29] VITALS: BP 144/88
== END 2019-10-20 16:29 | disposition home or self-care (01) ==
LOC: ED 15:05
DX: S51.812A Laceration without foreign body of left forearm, initial encounter (principal); W19.XXXA Unspecified fall, initial encounter; Z23 Encounter for immunization; I10 Essential (primary) hypertension; Z79.82 Long term (current) use of aspirin
CPT/HCPCS: 12002; 90471; 99283

== ENCOUNTER 2019-10-23 13:54 | Outpatient (CLI) | payer MEDICARE, BC ==
--- NOTE | 2019-10-24 09:14 | Ultrasound Report ---
LIMITED ULTRASOUND OF RIGHT BREAST: 10/23/2019 CLINICAL: Palpable right breast lump. Comparison is made to exams dated: 10/23/2019 mammogram, 03/30/2015 mammogram, and 01/14/2014 mammogram - [facility]. Color flow and real-time ultrasound of the right breast 11 o'clock region were performed. Araya scale images of the real-time examination were reviewed. Palpable abnormality in the right breast correlates to a large area of dystrophic calcifications at 1 1:00 o'clock 4 cm from the nipple measuring 3.5 x 2.2 cm. No additional mass. IMPRESSION: BENIGN There is no sonographic evidence of malignancy. Palpable abnormality correlates to dystrophic calcifications which have been stable on prior mammogra ms. A 1 year screening mammogram is recommended. Exam findings were conveyed to the patient. This exam was interpreted at Station ID: [id number]. Electronically Signed By: Cristian Pederson M.D. slc/:10/23/2019 15:59:31 Ultrasound BI-RADS: 2 Benign BI-RADS CATEGORY: (2) - 2 RECOMMENDATION: (ANNUAL) - Recommend routine annual screening mammography. [id number] 1 year screening LATERALITY: (B)
--- NOTE | 2019-10-24 09:14 | Mammography Report ---
UNILATERAL RIGHT DIGITAL DIAGNOSTIC MAMMOGRAM: 10/23/2019 CLINICAL: Palpable right breast lump. Personal history of left breast cancer. Comparison is made to exams dated: 03/30/2015 mammogram and 01/14/2014 mammogram - [facility]. There are scattered fibroglandular elements in right breast. Large area of dystrophic calcifications in the right breast. This is deep to the palpable abnormality on the MLO view. No other significant masses, calcifications, or other findings are seen in the breast. IMPRESSION: INCOMPLETE: NEEDS ADDITIONAL IMAGING EVALUATION No new density or mass in the region of the palpable abnormality. Large dsytrophic calcifications in the right breast which may correlate to the palpable abnormality. A targeted ultrasound of the right breast is recommended and will immediately follow. This exam was interpreted at Station ID: [id number]. NOTE: For mammograms, a report in lay terms will be sent to the patient. Approximately 15% of breast malignancies will not be visualized mammographically. In the management of a palpable breast mass, a negative mammogram must not discourage biopsy of a clinically suspicious lesion. Electronically Signed By: Cristian Pederson M.D. slc/:10/23/2019 15:55:52 ACR BI-RADS Category 0: Incomplete 3340F PARENCHYMAL PATTERN: (A) - The breast(s) demonstrate(s) scattered fibroglandular densities. BI-RADS CATEGORY: (0) - 0 Ultrasound [id number] Immediate follow-up LATERALITY: (B)
== END 2019-10-23 13:55 | disposition home or self-care (01) ==
LOC: DI 13:54
PROVIDERS: ATTEND Nurse Practitioner Family
DX: R92.0 Mammographic microcalcification found on diagnostic imaging of breast (principal); Z08 Encounter for follow-up examination after completed treatment for malignant neoplasm; Z85.3 Personal history of malignant neoplasm of breast
CPT/HCPCS: 76642

== ENCOUNTER 2019-11-02 13:28 | Emergency (ER) | payer MEDICARE, BC ==
[2019-11-02 13:40] VITALS: BP 126/71
[2019-11-02] MEDS ORDERED: BACITRACIN ZINC OINT 1 PACKET TOP STA (13:52)
--- NOTE | 2019-11-02 13:53 | ED Physician Documentation ---
PD HPI UPPER EXT INJURY - Stated complaint Stated Complaint: LT ARM STRIPS REMOVED - Chief complaint Chief Complaint: Wound - History obtained from History obtained from: Patient (84-year-old woman had a skin tear on her left arm approximately 15 days ago and was seen here Steri-Strips/ Dermabond was placed and she returns requesting these be removed as they have not come off on their own.) Review of Systems Constitutional: reports: Reviewed and negative Ears: reports: Reviewed and negative Nose: reports: Reviewed and negative Throat: reports: Reviewed and negative PD PAST MEDICAL HISTORY - Past Medical History Past Medical History: Yes Cardiovascular: Hypertension, Atrial flutter Respiratory: Asthma Neuro: None Endocrine/Autoimmune: None GI: Chronic constipation 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 : Incontinence - Past Surgical History Past Surgical History: Yes /GATE KEEPER: Mastectomy - Present Medications Home Medications: Ambulatory Orders Medication Instructions Recorded Confirmed Aspirin [Children's Aspirin] 81 mg PO DAILY 08/05/18 01/15/19 Beclomethasone 40 Mcg [Qvar 40] 1 puffs IH DAILY 08/05/18 01/15/19 diltiaZEM CD [Cardizem Cd] 120 mg PO BID 10/28/18 05/14/19 Magnesium Oxide [Magnesium] 1 cap PO DAILY 01/15/19 01/15/19 Multivitamin [One-Daily 1 tab PO DAILY 01/15/19 05/14/19 Multi-Vitamin] - Allergies Allergies/Adverse Reactions: Allergies Allergy/AdvReac Type Severity Reaction Status Date / Time acetaminophen [From Vicodin] Allergy Unknown Verified 10/20/19 15:13 cephalexin [From Keflex] Allergy Unknown Verified 10/20/19 15:13 codeine Allergy Unknown Verified 10/20/19 15:13 hydrocodone Allergy Unknown Verified 10/20/19 15:13 hydromorphone [From Dilaudid] Allergy Unknown Verified 10/20/19 15:13 oxycodone [From Percocet] Allergy Unknown Verified 10/20/19 15:13 Sulfa (Sulfonamide Allergy Unknown Verified 10/20/19 15:13 Antibiotics) - Social History Does the pt smoke?: No Smoking Status: Never smoker Does the pt drink ETOH?: Yes Does the pt have substance abuse?: No - Immunizations Immunizations are current?: No Immunizations: TDAP >10years/unknown - POLST Patient has POLST: No PD ED PE NORMAL - Vitals Vital signs reviewed: Yes - General General: Alert and oriented X 3, No acute distress - Extremities Extremities: Other (There is a almost completely healed skin tear on the left arm with Steri-Strips and Dermabond overlying them which was removed during exam without issue or trauma. There is still a little raw area under there and she was advised on wound care) Results - Vitals Vitals: Vital Signs - 24 hr 11/02/19 13:36 Temperature 36.3 C L Heart Rate 71 Respiratory 18 Rate Blood Pressure 126/71 O2 Saturation 97 Oxygen O2 Source Room air Departure - Departure Disposition: Home, Self Care Clinical Impression: Visit for wound check Condition: Good Record reviewed to determine appropriate education?: Yes Comments: It looks like it is healing well. I would simply wash it with soap and water daily, then you can apply bacitracin ointment which is available [id number] and a bandage. Return for new or worsening symptoms.
== END 2019-11-02 14:03 | disposition home or self-care (01) ==
LOC: ED 13:28
DX: S51.812D Laceration without foreign body of left forearm, subsequent encounter (principal); X58.XXXD Exposure to other specified factors, subsequent encounter; I10 Essential (primary) hypertension; Z79.82 Long term (current) use of aspirin
CPT/HCPCS: 99282; 99283; A9270

== ENCOUNTER 2019-12-07 19:43 | Outpatient (CLI) | payer MEDICARE, BC | END 2019-12-07 19:44 | disposition home or self-care (01) | LOC: SC 19:43 | PROVIDERS: ATTEND Internal Medicine Pulmonary Disease | DX: G47.10 Hypersomnia, unspecified (principal); R53.83 Other fatigue; R06.83 Snoring; G47.8 Other sleep disorders; I49.9 Cardiac arrhythmia, unspecified | CPT/HCPCS: 95810 ==

== ENCOUNTER 2020-06-12 15:51 | Outpatient (CLI) | payer MEDICARE, BC ==
--- NOTE | 2020-06-14 08:51 | MRI Report ---
PROCEDURE: Cervical Spine W/O INDICATIONS: GAIT DISTURBANCE, BILAT HAND NUMBNESS TECHNIQUE: Noncontrast sagittal T1 spin echo and T2 fast spin echo, sagittal STIR, foraminal oblique sagittal T2 fast spin echo, and axial gradient echo or T2 fast spin echo through the cervical spine. COMPARISON: 03/01/2018 FINDINGS: Image quality: Diagnostic. Alignment and Curvature: Trace degenerative retrolisthesis of C5 on C6, of C4 on C5, and of C3 on C4. Bone Marrow: Marrow demonstrates normal overall signal. Spinal Cord: Visualized spinal cord has normal size and signal. No cerebellar tonsillar herniation. Paraspinous Soft Tissues: No paravertebral masses. Prevertebral soft tissues are normal in thicknes s. C2-C3: No canal stenosis or foraminal stenosis. C3-C4: Unchanged broad based posterior disc plus osteophyte. There is mild impression on the ventra l cord. There is no canal stenosis. There is bilateral uncovertebral joint hypertrophy. There is mode rate right foraminal narrowing with flattening deformity on the exiting right C4 nerve root. There is mild to moderate left foraminal narrowing. C4-C5: Broad-based posterior disc plus osteophyte indents on the ventral cord. There is mild canal s tenosis. There is bilateral uncovertebral joint hypertrophy. There is moderate bilateral foraminal st enosis with mild flattening deformity on the exiting bilateral C5 nerve roots. C5-C6: There is broad-based posterior disc plus osteophyte. This includes prominent bilateral uncove rtebral joint osteophytes. There is moderate central canal stenosis. There is severe bilateral latera l recess stenosis. There is moderate to severe bilateral foraminal narrowing with flattening deformit y on the exiting bilateral C6 nerve roots. C6-C7: Disc bulge. No canal stenosis. C7-T1: No canal stenosis or foraminal stenosis. IMPRESSION: 1. Diffuse cervical spondylitic change. 2. At C4-C5, there is mild canal stenosis. 3. At C5-C6, there is moderate central canal stenosis and severe bilateral lateral recess stenosis. T here is also moderate to severe bilateral foraminal narrowing. Reviewed by: Dawit Bianchi MD on 06/14/2020 8:49 AM PST Approved by: Dawit Bianchi MD on 06/14/2020 8:49 AM PST Station ID: [id number]
== END 2020-06-12 15:52 | disposition home or self-care (01) ==
LOC: DI 15:51
PROVIDERS: ATTEND Specialist
DX: M47.812 Spondylosis without myelopathy or radiculopathy, cervical region (principal); M43.12 Spondylolisthesis, cervical region; M25.78 Osteophyte, vertebrae; M48.02 Spinal stenosis, cervical region; M50.31 Other cervical disc degeneration, high cervical region

== ENCOUNTER 2020-06-16 13:36 | Outpatient (CLI) | payer MEDICARE, BC ==
--- NOTE | 2020-06-16 15:07 | XRAY Report ---
PROCEDURE: Chest 2 View X-Ray INDICATIONS: COUGH AFTER EATING TECHNIQUE: 2 view(s) of the chest. COMPARISON: 08/12/2018. FINDINGS: Surgical changes and devices: Multiple surgical clips project over the mediastinum and left axilla as before.. Lungs and pleura: No pleural effusions or pneumothorax. Chronic appearing interstitial prominence an d hyperinflation. Minimal flattening of the bilateral hemidiaphragms. Mediastinum: Mediastinal contours are normal. Heart size is normal. Bones and chest wall: No suspicious bony abnormalities. Soft tissues appear unremarkable. IMPRESSION: Chest without acute cardiopulmonary abnormalities or focal airspace disease. Persistent findings of hyperinflation, interstitial prominence, and minimal flattening of the hemidia phragms consistent with chronic obstructive pulmonary physiology. Reviewed by: Angel Goldsmith MD on 06/16/2020 3:06 PM PST Approved by: Angel Goldsmith MD on 06/16/2020 3:06 PM [facility] Station ID: [id number]
== END 2020-06-16 13:37 | disposition home or self-care (01) ==
LOC: DI 13:36
PROVIDERS: ATTEND Family Medicine
DX: R05 Cough (principal)

== ENCOUNTER 2020-06-19 16:34 | Emergency (ER) | payer MEDICARE, BC ==
[2020-06-19] MEDS ORDERED: ACETAMINOPHEN 325 MG TABLET PO STA (16:52)
--- NOTE | 2020-06-19 16:53 | ED Physician Documentation ---
History of Present Illness - Stated complaint Stated Complaint: GLF - Chief complaint Chief Complaint: General - History obtained from History obtained from: Patient (She slipped and fell on her butt about an hour ago and has pain in the low lumbar spine. No other injuries. 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: Mastectomy - Present Medications Home Medications: Ambulatory Orders Medication Instructions Recorded Confirmed Aspirin [Children's Aspirin] 81 mg PO DAILY 08/05/18 01/15/19 Beclomethasone 40 Mcg [Qvar 40] 1 puffs IH DAILY 08/05/18 01/15/19 diltiaZEM CD [Cardizem Cd] 120 mg PO BID 10/28/18 05/14/19 Magnesium Oxide [Magnesium] 1 cap PO DAILY 01/15/19 01/15/19 Multivitamin [One-Daily 1 tab PO DAILY 01/15/19 05/14/19 Multi-Vitamin] Calcitonin [Fortical] 1 sprays CYNDI DAILY #1 bot 06/19/20 Lidocaine Patch 5% [Lidoderm Patch] 1 patch TOP DAILY PRN #10 patch 06/19/20 - Allergies Allergies/Adverse Reactions: Allergies Allergy/AdvReac Type Severity Reaction Status Date / Time acetaminophen [From Vicodin] Allergy Unknown Verified 06/19/20 16:45 cephalexin [From Keflex] Allergy Unknown Verified 06/19/20 16:45 codeine Allergy Unknown Verified 06/19/20 16:45 hydrocodone Allergy Unknown Verified 06/19/20 16:45 hydromorphone [From Dilaudid] Allergy Unknown Verified 06/19/20 16:45 oxycodone [From Percocet] Allergy Unknown Verified 06/19/20 16:45 Sulfa (Sulfonamide Allergy Unknown Verified 06/19/20 16:45 Antibiotics) - Social History Does the pt smoke?: No Smoking Status: Never smoker Does the pt drink ETOH?: Yes Does the pt have substance abuse?: No - Immunizations Immunizations are current?: No Immunizations: TDAP >10years/unknown - POLST Patient has POLST: No PD ED PE NORMAL - Vitals Vital signs reviewed: Yes - General General: Alert and oriented X 3 (She is very soft-spoken to the level that it is difficult to hear her) - Neck Neck: Supple, no meningeal sign, No bony TTP - Back Back: Other (Tender to the low lumbar spine and upper sacrum, no deformity.) - Derm Derm: Normal color, Warm and dry - Extremities Extremities: Other (The patient has equal and normal Achilles and patellar reflexes bilaterally. Normal sensation in all areas of the legs. Patient denies saddle anesthesia. Normal strength in flexion-extension at the ankles, knees, and flexion of the hips.) - Neuro Neuro: Alert and oriented X 3 Results - Vitals Vitals: Vital Signs - 24 hr 06/19/20 06/19/20 16:39 18:20 Temperature 36.3 C L Heart Rate 81 87 Respiratory 20 15 Rate Blood Pressure 140/67 H 136/67 H O2 Saturation 98 100 Oxygen O2 Source Room air - Rads (name of study) L/S XRs Radiology: EMP read contemporaneously (Compression fractures of L1 and L5) PD MEDICAL DECISION MAKING - ED course ED course: She has compression fractures of L1 and L5 on x-ray imaging. Suspect the L1 is chronic as she really is not is tender there. Departure - Departure Disposition: 01 Home, Self Care Clinical Impression: Compression fracture of L1 lumbar vertebra Qualifiers: Encounter type: initial encounter Qualified Code(s): S32.010A - Wedge compression fracture of first lumbar vertebra, initial encounter for closed fracture Compression fracture of L5 vertebra Qualifiers: Encounter type: initial encounter Qualified Code(s): S32.050A - Wedge compression fracture of fifth lumbar vertebra, initial encounter for closed fracture Condition: Good Record reviewed to determine appropriate education?: Yes Instructions: ED Fx Comp Vertebral Prescriptions: Calcitonin [Fortical] 1 sprays CYNDI DAILY #1 bot Lidocaine Patch 5% [Lidoderm Patch] 1 patch TOP DAILY PRN #10 patch PRN Reason: pain Comments: Tylenol per package instructions as needed for pain, in addition we are treating your pain with lidocaine patches and calcitonin nasal spray. Follow-up with your doctor within the week for recheck. Return for new or worsening symptoms. Discharge Date/Time: 06/19/20 18:42
--- NOTE | 2020-06-19 17:59 | XRAY Report ---
PROCEDURE: Lumbar Spine 2 View INDICATIONS: back inj TECHNIQUE: 2 views of the lumbar spine were acquired. COMPARISON: None. FINDINGS: Bones: 5 [id number] vertebrae are present. There is normal bony alignment. There is a moderate compression fracture of L1 which is likely acute. There is a mild compression of L5 which may be acu te. No suspicious bony lesions. Soft tissues: Overlying bowel gas pattern is normal. No suspicious soft tissue calcifications. IMPRESSION: 1. Moderate L1 compression fracture is likely acute. 2. Mild compression fracture of L5 may be acute. Comment: Consider lumbar MRI to confirm fracture acuity. Reviewed by: Dawit Bianchi MD on 06/19/2020 4:57 PM [place] Approved by: Dawit Bianchi MD on 06/19/2020 4:57 PM [facility] Station ID: [id number]
--- NOTE | 2020-06-19 18:00 | XRAY Report ---
PROCEDURE: Sacrum/Coccyx INDICATIONS: back inj TECHNIQUE: 3 views of the sacrum and coccyx acquired. COMPARISON: Lumbar spine plain films from today FINDINGS: Bones: L5 compression fractures likely acute. There is sacrococcygeal deformity with increased angula tion which likely represents remote fracture. No acute sacrococcygeal fractures are identified. No marshall spicious bony lesions. Soft tissues: Visualized bowel gas pattern is normal. No suspicious soft tissue densities. IMPRESSION: 1. Probable acute L5 compression fracture. 2. No acute sacrococcygeal fracture is identified. Reviewed by: Dawit Bianchi MD on 06/19/2020 4:58 PM [facility] Approved by: Dawit Bianchi MD on 06/19/2020 4:58 PM [facility] Station ID: [id number]
[2020-06-19] MEDS ORDERED: LIDOCAINE PATCH 5% TOP STA (18:08)
[2020-06-19 18:21] VITALS: BP 136/67
== END 2020-06-19 18:42 | disposition home or self-care (01) ==
LOC: ED 16:34
DX: S32.010A Wedge compression fracture of first lumbar vertebra, initial encounter for closed fracture (principal); S32.050A Wedge compression fracture of fifth lumbar vertebra, initial encounter for closed fracture; W01.0XXA Fall on same level from slipping, tripping and stumbling without subsequent striking against object, initial encounter; I10 Essential (primary) hypertension
CPT/HCPCS: 72100; 72220; 99282; 99283; A9270

== ENCOUNTER 2020-06-26 18:20 | Emergency (ER) | payer MEDICARE, BC ==
--- NOTE | 2020-06-26 19:15 | ED Physician Documentation ---
History of Present Illness - Stated complaint Stated Complaint: GLF - Chief complaint Chief Complaint: General - History obtained from History obtained from: Patient - History of Present Illness Timing: Today Pain level max: 5 Pain level now: 5 - Additonal information Additional information: 75 year old female states she lost her balance today and fell. states her lower back hurts. has a history of frequent falls. no other symptoms. took tylenol without relief. No loss of bowel or bladder control. No numbness or tingling. Does not radiate. No head injury. No neck or back pain. No loss of consciousness. No seizure activity. 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: Breast cancer : Incontinence Psych: None Musculoskeletal: Chronic back pain Derm: None - Past Surgical History Past Surgical History: Yes /HELICOPTER PILOT INSTRUCTOR: Mastectomy - Present Medications Home Medications: Ambulatory Orders Medication Instructions Recorded Confirmed Aspirin [Children's Aspirin] 81 mg PO DAILY 08/05/18 06/26/20 Beclomethasone 40 Mcg [Qvar 40] 1 puffs IH DAILY 08/05/18 06/26/20 [id number] CD [Cardizem Cd] 120 mg PO BID 10/28/18 06/26/20 Magnesium Oxide [Magnesium] 1 cap PO DAILY 01/15/19 06/26/20 Multivitamin [One-Daily 1 tab PO DAILY 01/15/19 06/26/20 Multi-Vitamin] Calcitonin [Fortical] 1 sprays CYNDI DAILY #1 bot 06/19/20 06/26/20 Lidocaine Patch 5% [Lidoderm Patch] 1 patch TOP DAILY PRN #10 patch 06/19/20 06/26/20 - Allergies Allergies/Adverse Reactions: Allergies Allergy/AdvReac Type Severity Reaction Status Date / Time acetaminophen [From Vicodin] Allergy Unknown Verified 06/26/20 18:29 cephalexin [From Keflex] Allergy Unknown Verified 06/26/20 18:29 codeine Allergy Unknown Verified 06/26/20 18:29 hydrocodone Allergy Unknown Verified 06/26/20 18:29 hydromorphone [From Dilaudid] Allergy Unknown Verified 06/26/20 18:29 oxycodone [From Percocet] Allergy Unknown Verified 06/26/20 18:29 Sulfa (Sulfonamide Allergy Unknown Verified 06/26/20 18:29 Antibiotics) - Social History Does the pt smoke?: No Smoking Status: Never smoker Does the pt drink ETOH?: Yes Does the pt have substance abuse?: No - Immunizations Immunizations are current?: No Immunizations: TDAP >10years/unknown - POLST Patient has POLST: No PD ED PE NORMAL - Vitals Vital signs reviewed: Yes - General General: Alert and oriented X 3, No acute distress, Other (Thin, frail female) - HEENT HEENT: PERRL, Moist mucous membranes - Neck Neck: Supple, no meningeal sign - Cardiac Cardiac: RRR, Strong equal pulses - Respiratory Respiratory: No respiratory distress, Clear bilaterally - Abdomen Abdomen: Soft, Non tender, Non distended - Back Back: Other (Mild tenderness palpation around L3-L4. No step-off or deformity. No swelling. No bruising) - Derm Derm: Warm and dry - Extremities Extremities: Other (Normal bilateral lower extremity patellar and ankle jerk reflexes. Normal great toe extension bilaterally. 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 Recommend correlation of point tenderness. ) PD MEDICAL DECISION MAKING - ED course Complexity details: reviewed results, re-evaluated patient, considered differential, d/w patient ED course: 75-year-old female with no acute fractures on lumbar spine x-ray. Possible slight increased compression L1 fracture. Patient states she is allergic to all pain medications and will just take Tylenol at home. Declines any further work- up or care at this time. Patient counseled regarding signs and symptoms for which I believe and urgent re-evaluation would be necessary. Patient with good understanding of and agreement to plan and is comfortable going home at this time This document was made in part using voice recognition software. While efforts are made to proofread this document, sound alike and grammatical errors may occur. Departure - Departure Disposition: 01 Home, Self Care Clinical Impression: Compression fracture of L1 lumbar vertebra Qualifiers: Encounter type: initial encounter Qualified Code(s): S32.010A - Wedge compression fracture of first lumbar vertebra, initial encounter for closed fracture Condition: Good Instructions: ED Fx Comp Vertebral Follow-Up: Nash Goncalves DO [Primary Care Provider] - Within 1 week Comments: Follow-up with your doctor for further care. Your x-ray today shows a progression of your L1 vertebral fracture. Discharge Date/Time: 06/26/20 20:08
--- NOTE | 2020-06-26 19:44 | XRAY Report ---
PROCEDURE: Lumbar Spine 2 View INDICATIONS: fall, low back pain TECHNIQUE: 3 views of the lumbar spine were acquired. COMPARISON: Lumbar spine x-ray 08/19/2020 FINDINGS: Bones: 5 [id number] vertebrae are present. There is normal bony alignment. L1 compression defo rmity is present. This is minimally more prominent compared to prior exam. No suspicious bony lesions . Soft tissues: Overlying bowel gas pattern is normal. No suspicious soft tissue calcifications. IMPRESSION: Slight increased compression at L1 compared to prior exam. Recommend correlation of poin t tenderness. Reviewed by: Kizzy Zimmerman MD on 06/26/2020 7:42 PM PST Approved by: Kizzy Zimmerman MD on 06/26/2020 7:42 PM PST Station ID: [id number]
[2020-06-26 20:02] VITALS: BP 152/76
== END 2020-06-26 20:08 | disposition home or self-care (01) ==
LOC: ED 18:20
DX: S32.010A Wedge compression fracture of first lumbar vertebra, initial encounter for closed fracture (principal); W01.198A Fall on same level from slipping, tripping and stumbling with subsequent striking against other object, initial encounter; Y93.F9 Activity, other caregiving; Z91.81 History of falling; I10 Essential (primary) hypertension
CPT/HCPCS: 99283; 99284

== ENCOUNTER 2020-07-12 13:17 | Outpatient (CLI) | payer MEDICARE, BC ==
--- NOTE | 2020-07-12 14:26 | DEXA Report ---
PROCEDURE: Dexa Spine and/or Hip INDICATIONS: OSTEOPOROSIS TECHNIQUE: Dual energy x-ray absorptiometry (DXA) was performed on a Mippin System. Regions measur ed are the AP Spine, femoral neck, and if needed forearm. COMPARISON: 12/26/2017 similar study. FINDINGS: Lumbar Spine: Bone Mineral Density 0.860 g/cm/cm,T score -2.8, osteoporosis, and the current study represents a statistically insignificant 5.7% reduction in bone mineral density from 12/26/2017 Left Hip: Bone Mineral Density 0.687 g/cm/cm,T score -2.5, osteoporosis, and this represents a statistically s ignificant interval reduction of 8.4% bone mineral density from 12/26/2017 Left Femoral Neck: Bone Mineral Density 0.748 g/cm/cm, T score -2.1, osteopenia. (T score greater or equal to -1.0: NORMAL) (T score from -1.1 to -2.4: OSTEOPENIA) (T score less than or equal to -2.5 to: OSTEOPOROSIS) Impression: Osteoporosis at the lumbosacral spine and left hip overall, with the left hip bone minera l density documenting a 8.4% statistically significant reduction in density from the prior comparison study from December 2017. The left femoral neck area shows osteopenia. Patients with diagnosis of osteoporosis or osteopenia should have regular bone mineral density assess ment. For those eligible for Medicare, routine testing is allowed once every 2 years. Testing frequ ency can be increased for patients who have rapidly progressing disease or for those who are receivin g medical therapy to restore bone mass. Reviewed by: Earl Nazario MD on 07/12/2020 2:25 PM PDT Approved by: Earl Nazario MD on 07/12/2020 2:25 PM PDT Station ID: [id number]
== END 2020-07-12 13:18 | disposition home or self-care (01) ==
LOC: DI 13:17
PROVIDERS: ATTEND Family Medicine
DX: M81.0 Age-related osteoporosis without current pathological fracture (principal)

== ENCOUNTER 2020-08-24 14:29 | Outpatient (CLI) | payer MEDICARE, BC | END 2020-08-24 14:30 | disposition critical access hospital (66) | LOC: EMS 14:29 | DX: M54.5 Low back pain (principal); M25.552 Pain in left hip | CPT/HCPCS: A0425; A0429 ==

== ENCOUNTER 2020-08-24 14:38 | Inpatient (IN) | payer MEDICARE, BC ==
--- NOTE | 2020-08-24 15:09 | ED Physician Documentation ---
History of Present Illness - Stated complaint Stated Complaint: GLF/HX DEMENTIA - Chief complaint Chief Complaint: General - History obtained from History obtained from: Patient, EMS - History of Present Illness Timing: Today Pain level max: 10 Pain level now: 10 - Additonal information Additional information: 75 year old female with a history of dementia, states that she fell getting out of the truck today. States she fell onto concrete. states pain to R hip. unsure if she struck her head. Patient has chronic pain as well. 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 : Incontinence Psych: None Musculoskeletal: Chronic back pain Derm: None - Past Surgical History Past Surgical History: Yes /SECURITY SYSTEM SALES CONSULTANT: Mastectomy - Present Medications Home Medications: Ambulatory Orders Medication Instructions Recorded Confirmed Aspirin [Children's Aspirin] 81 mg PO DAILY 08/05/18 06/26/20 Beclomethasone 40 Mcg [Qvar 40] 1 puffs IH DAILY 08/05/18 06/26/20 [id number] CD [Cardizem Cd] 120 mg PO BID 10/28/18 08/24/20 Magnesium Oxide [Magnesium] 1 cap PO DAILY 01/15/19 06/26/20 Multivitamin [One-Daily 1 tab PO DAILY 01/15/19 06/26/20 Multi-Vitamin] Calcitonin [Fortical] 1 sprays CYNDI DAILY #1 bot 06/19/20 08/24/20 Lidocaine Patch 5% [Lidoderm Patch] 1 patch TOP DAILY PRN #10 patch 06/19/20 06/26/20 Brimonidine 0.2% Ophth Drops 1 drops LEFTEYE TID 08/24/20 [Alphagan P 0.2% Ophth Drops] - Allergies Allergies/Adverse Reactions: Allergies Allergy/AdvReac Type Severity Reaction Status Date / Time acetaminophen [From Vicodin] Allergy Unknown Verified 08/24/20 14:50 cephalexin [From Keflex] Allergy Unknown Verified 08/24/20 14:50 codeine Allergy Unknown Verified 08/24/20 14:50 hydrocodone Allergy Unknown Verified 08/24/20 14:50 hydromorphone [From Dilaudid] Allergy Unknown Verified 08/24/20 14:50 oxycodone [From Percocet] Allergy Unknown Verified 08/24/20 14:50 Sulfa (Sulfonamide Allergy Unknown Verified 08/24/20 14:50 Antibiotics) - Social History Does the pt smoke?: No Smoking Status: Never smoker Does the pt drink ETOH?: Yes Does the pt have substance abuse?: No - Immunizations Immunizations are current?: No Immunizations: TDAP >10years/unknown - POLST Patient has POLST: No PD ED PE NORMAL - Vitals Vital signs reviewed: Yes - General General: Alert and oriented X 3, No acute distress, Well developed/nourished - HEENT HEENT: Atraumatic, PERRL, Ears normal, Moist mucous membranes, Pharynx benign - Neck Neck: Supple, no meningeal sign, No bony TTP - Cardiac Cardiac: RRR, Strong equal pulses - Respiratory Respiratory: No respiratory distress, Clear bilaterally - Abdomen Abdomen: Soft, Non tender, Non distended - Back Back: No CVA TTP, No spinal TTP (no step off or deformity. ) - Derm Derm: Warm and dry - Extremities Extremities: Other (TTP R hip, limited ROM 2/2 pain. NVI. no bruising or swelling. 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, No motor deficit, No sensory deficit, Normal speech Eye Opening: Spontaneous Motor: Obeys Commands Verbal: Oriented GCS Score: 15 - Psych Psych: Normal mood, Normal affect Results - Vitals Vitals: Vital Signs - 24 hr 08/24/20 14:44 Temperature 36.5 C Heart Rate 97 Respiratory 12 Rate Blood Pressure 145/88 H O2 Saturation 97 Oxygen O2 Source Room air - EKG (time done) 1545 Rate: Rate (enter#) (98) Rhythm: NSR [place]: Normal Intervals: Normal NM QRS: Normal Ischemia: Normal ST segments - Labs Labs: Laboratory Tests 08/24/20 08/24/20 08/24/20 15:25 15:25 15:25 WBC 27.2 H RBC 4.29 Hgb 11.1 L Hct 36.1 L MCV 84.1 MCH 25.9 L MCHC 30.7 L RDW 14.0 Plt Count 410 MPV 8.3 Neut # (Auto) Not Reportable Lymph # (Auto) Not Reportable Wharton # (Auto) Not Reportable Eos # (Auto) Not Reportable Baso # (Auto) Not Reportable Absolute Nucleated RBC Not Reportable Total Counted 100 Band Neuts % (Manual) 1 Abnorm Lymph % (Manual) 0 Nucleated RBC % Not Reportable Neutrophils # (Manual) 21.5 H Lymphocytes # (Manual) 4.1 H Monocytes # (Manual) 1.6 H Eosinophils # (Manual) 0.0 Basophils # (Manual) 0.0 Differential Comment MANUAL DIFFERENTIAL WBC Morphology NORMAL APPEARANCE Platelet Estimate NORMAL (130-450,000) Platelet Morphology NORMAL APPEARANCE RBC Morph Micro Appear NORMAL APPEARANCE PT INR Sodium 138 Potassium 3.8 Chloride 103 Carbon Dioxide 25 Anion Gap 10.0 BUN 19 Creatinine 0.6 Estimated GFR (MDRD) 97 Glucose 138 H Calcium 9.3 Total Bilirubin 0.6 AST 24 ALT 22 Alkaline Phosphatase 117 Total Protein 7.8 Albumin 3.9 Globulin 3.9 Albumin/Globulin Ratio 1.0 Lipase 69 H Blood Type O POSITIVE Antibody Screen NEGATIVE 08/24/20 15:25 WBC RBC Hgb Hct MCV MCH MCHC RDW Plt Count MPV Neut # (Auto) Lymph # (Auto) Wharton # (Auto) Eos # (Auto) Baso # (Auto) Absolute Nucleated RBC Total Counted Band Neuts % (Manual) Abnorm Lymph % (Manual) Nucleated RBC % Neutrophils # (Manual) Lymphocytes # (Manual) Monocytes # (Manual) Eosinophils # (Manual) Basophils # (Manual) Differential Comment WBC Morphology Platelet Estimate Platelet Morphology RBC Morph Micro Appear PT 13.6 H INR 1.2 Sodium Potassium Chloride Carbon Dioxide Anion Gap BUN Creatinine Estimated GFR (MDRD) Glucose Calcium Total Bilirubin AST ALT Alkaline Phosphatase Total Protein Albumin Globulin Albumin/Globulin Ratio Lipase Blood Type Antibody Screen - Rads (name of study) R hip xray Radiology: Prelim report reviewed, EMP read contemporaneously, See rad report (Acute appearing subcapital femoral neck fracture, with superior subluxation of the proximal femur across the fracture plane. ) head CT Radiology: Prelim report reviewed, EMP read contemporaneously, See rad report (1. No CT evidence of acute intracranial bleed, midline shift or mass effect. 2. No acute skull fracture. 3. Age-appropriate atrophy and moderate white matter chronic small vessel ischemic changes. ) cervical spine CT Radiology: Prelim report reviewed, EMP read contemporaneously, See rad report (1. No acute cervical spine fracture or dislocation. 2. Degenerative disc disease throughout cervical spine as above. ) cxr Radiology: Prelim report reviewed, EMP read contemporaneously, See rad report (Large lung volumes, suspect COPD and long-standing smoking history. Chronic interstitial prominence. No focal pneumonia found. ) PD MEDICAL DECISION MAKING - ED course Complexity details: reviewed results, re-evaluated patient, considered differential, d/w patient, d/w pricing consultant ED course: 75-year-old female status post a fall getting out of a truck today. No acute findings on chest x-ray. Right hip x-ray shows a femoral neck fracture, displaced. Discussed the case with Dr. Bob, orthopedics on-call who recommends admission to the hospitalist service and he will consult tomorrow, likely OR tomorrow. Discussed the case with Dr. Goff, hospitalist who accepts This document was made in part using voice recognition software. While efforts are made to proofread this document, sound alike and grammatical errors may occur. Departure - Departure Disposition: 66 [facility] DC/Xfer Clinical Impression: Parkinson disease Closed right hip fracture Qualifiers: Encounter type: initial encounter Qualified Code(s): S72.001A - Fracture of unspecified part of neck of right femur, initial encounter for closed fracture Fall Qualifiers: Encounter type: initial encounter Qualified Code(s): W19.XXXA - Unspecified fall, initial encounter Dementia Qualifiers: Dementia type: unspecified type Dementia behavioral disturbance: without b ehavioral disturbance Qualified Code(s): F03.90 - Unspecified dementia without behavioral disturbance Condition: Stable Discharge Date/Time: 08/24/20 17:17
--- NOTE | 2020-08-24 15:28 | XRAY Report ---
PROCEDURE: Hip w/Pelvis 2-3V RT INDICATIONS: fall, R hip pain TECHNIQUE: AP pelvis with lateral view(s) of the right hip(s). COMPARISON: None. FINDINGS: Bones: No dislocations. There is, however, a subcapital femoral neck fracture with superior subluxa tion of the right femur along the fracture plane by almost a shaft width. Pelvic ring appears intact. No suspicious bony lesions. Soft tissues: The visualized bowel gas pattern is normal. No suspicious soft tissue calcifications. IMPRESSION: Acute appearing subcapital femoral neck fracture, with superior subluxation of the proxi mal femur across the fracture plane. Reviewed by: Earl Nazario MD on 08/24/2020 3:27 PM PDT Approved by: Earl Nazario MD on 08/24/2020 3:27 PM PDT Station ID: [id number]
--- NOTE | 2020-08-24 15:33 | XRAY Report ---
PROCEDURE: Chest 1 View X-Ray INDICATIONS: chest pain TECHNIQUE: One view of the chest was acquired. COMPARISON: 06/16/2020 2 view chest. FINDINGS: Surgical changes and devices: None. Lungs and pleura: No pleural effusions or pneumothorax. Lungs are abnormal with a chronic lung dise ase pattern previously present, with interstitial prominence. Mediastinum: Mediastinal contours appear normal. Heart size is normal. Bones and chest wall: No suspicious bony lesions. Overlying soft tissues appear unremarkable. IMPRESSION: Large lung volumes, suspect COPD and long-standing smoking history. Chronic interstitial prominence. No focal pneumonia found. Reviewed by: Earl Nazario MD on 08/24/2020 3:32 PM PDT Approved by: Earl Nazario MD on 08/24/2020 3:32 PM PDT Station ID: [id number]
[2020-08-24 15:36] LABS: BASOPHILS % (AUTO) 0.3 %; HCT - HEMATOCRIT 36.1 % (37.0-47.0); HGB - HEMOGLOBIN 11.1 g/dL (12.0-16.0); LYMPHOCYTES % (AUTO) 3.5 %; MEAN CORPUSCULAR HEMOGLOBIN 25.9 pg (27.0-31.0); MEAN CORPUSCULAR HGB CONC 30.7 g/dL (32.0-36.0); MEAN CORPUSCULAR VOLUME 84.1 fL (81.0-99.0); MEAN PLATELET VOLUME 8.3 fL (7.9-10.8); MONOCYTES % (AUTO) 8.6 %; PLT - PLATELET COUNT 410 10^3/uL (130-450); RED BLOOD COUNT 4.29 10^6/uL (4.20-5.40); WHITE BLOOD COUNT 27.2 x10^3/uL (4.8-10.8)
[2020-08-24 15:39] LABS: ABNORMAL LYMPHS % (MANUAL) 0 %
[2020-08-24 15:48] LABS: ALBUMIN 3.9 g/dL (3.2-5.5); BILIRUBIN,TOTAL 0.6 mg/dL (0.2-1.0); CALCIUM 9.3 mg/dL (8.5-10.3); CREATININE 0.6 mg/dL (0.4-1.0); POTASSIUM 3.8 mmol/L (3.5-5.0); TOTAL PROTEIN 7.8 g/dL (6.7-8.2)
[2020-08-24] MEDS ORDERED: oxyCODONE 5 MG TABLET PO PRN (15:55)
[2020-08-24] MEDS ORDERED: MORPHINE 2 MG/ML CARPUJECT IVP PRN (15:55)
[2020-08-24] MEDS ORDERED: ONDANSETRON 4 MG/2 ML VIAL IVP PRN (15:55)
[2020-08-24] MEDS ORDERED: SODIUM CHLORIDE FLUSH 0.9% 10 ML SYRINGE IVP PRN (15:55)
[2020-08-24 15:57] LABS: BAND NEUTROPHILS % (MANUAL) 1 %; LYMPHOCYTES # (MANUAL) 4.1 10^3/uL (1.5-3.5); LYMPHOCYTES % (MANUAL) 15 %; MONOCYTES # (MANUAL) 1.6 10^3/uL (0.0-1.0); NEUTROPHILS # (MANUAL) 21.5 10^3/uL (1.5-6.6)
[2020-08-24 15:58] LABS: DIFFERENTIAL COMMENT MANUAL DIFFERENTIAL; PLATELET ESTIMATE, MANUAL NORMAL (130-450,000) (NORMAL); PLATELET MORPHOLOGY NORMAL APPEARANCE (NORMAL); RBC MORPHOLOGY (MULTIPLE) NORMAL APPEARANCE (NORMAL); WBC MORPHOLOGY (MULTIPLE) NORMAL APPEARANCE (NORMAL)
[2020-08-24] MEDS ORDERED: fentaNYL 100 MCG/2 ML VIAL IVP STA (16:02)
[2020-08-24] MEDS ORDERED: ALBUTEROL NEB 2.5 MG/3 ML INH PRN (16:15)
[2020-08-24] MEDS ORDERED: IPRATROPIUM/ALBUTEROL 3 ML NEB INH PRN (16:15)
[2020-08-24 16:32] LABS: INR 1.2 (0.8-1.2); PT - PROTHROMBIN TIME 13.6 secs (9.9-12.6)
--- NOTE | 2020-08-24 16:56 | HISTORY & PHYSICAL EXAMINATION ---
Chief Complaint - Chief Complaint Chief Complaint: fall History of Present Illness - Admitted From Admitted From:: ER - History Obtained From Records Reviewed: [facility] History obtained from: Medical record and ER report Exam Limitations: Dementia - History of Present Illness HPI Comment/Other: This is a 75-years old female with a past medical history significant for Dementia, hypertension, atrial flutter, asthma, Parkinson's, chronic constipation, breast cancer, chronic pain, Who present to ER for evaluation of her fall. Pt's is at the pt's bedside. pt's speaking is very soft and difficult to hear what she says. pt's report it was due to her parkinson's disease. Her report when he return to home to worm picker a phone, his first told him she will go to bathroom but after he return to look for her, he did not find her and finally he found pt Pt was hanging onto truck for support. pt report she fell getting out of the truck today and fell onto concrete. she denies loss of Consciousness. pt's also believed she may have fallen due to her complaining of right leg pain. Pt is ambulatory with assistance. Pt was not on blood thinners. But it is unsure if pt struck her head. pt's report pt had no other cardiac hx except she had atrial flutter. pt has no RI, CHF or CAD in the past. Denies chest pain, shortness breathing. CT of head and neck was unremarkable for acute findings. Large lung volumes, suspect COPD, and no focal pneumonia was shown on chest x-ray. Right hip x-ray shows subcapital femoral neck fracture. Routine laboratory tests show significant elevated WBC at 27. Urinalysis is pending. ER provider already Discussed the case with orthopedics surgeon. Given above medical conditons, Medical team was consulted for admission of this patient. Patient clearly state to me and her she wants have surgery, she also clearly stated to me and her she wanted DNR. History - Past Medical History Cardiovascular: reports: Hypertension, Atrial flutter Respiratory: reports: Asthma Neuro: reports: Dementia, Parkinson's Endocrine/Autoimmune: reports: None GI: reports: Chronic constipation ENVIRONMENTAL AID: reports: Breast cancer : reports: Incontinence Psych: reports: None Musculoskeletal: reports: Chronic back pain Derm: reports: None MRSA Hx?: No - Past Surgical History /ENVIRONMENTAL AID: reports: Mastectomy - Family & Social History Family History: Mother: , Father: Family History Comment/Other: Patient's report both patient's parents had dementia, Her father at age around 90, her mother age around 80. Social History Notes: Patient has no history of cigarette smoking, alcohol issue or drug issue. They live at [place]. - POLST Patient has POLST: No Meds/Allgy - Home Medications Home Medications: Ambulatory Orders Medication Instructions Recorded Confirmed Aspirin [Children's Aspirin] 81 mg PO DAILY 08/05/18 06/26/20 Beclomethasone 40 Mcg [Qvar 40] 1 puffs IH DAILY 08/05/18 06/26/20 diltiaZEM CD [Cardizem Cd] 120 mg PO BID 10/28/18 08/24/20 Magnesium Oxide [Magnesium] 1 cap PO DAILY 01/15/19 06/26/20 Multivitamin [One-Daily 1 tab PO DAILY 01/15/19 06/26/20 Multi-Vitamin] Calcitonin [Fortical] 1 sprays CYNDI DAILY #1 bot 06/19/20 08/24/20 Lidocaine Patch 5% [Lidoderm Patch] 1 patch TOP DAILY PRN #10 patch 06/19/20 06/26/20 Brimonidine 0.2% Ophth Drops 1 drops LEFTEYE TID 08/24/20 [Alphagan P 0.2% Ophth Drops] - Allergies Allergies/Adverse Reactions: Allergies Allergy/AdvReac Type Severity Reaction Status Date / Time acetaminophen [From Vicodin] Allergy Unknown Verified 08/24/20 14:50 cephalexin [From Keflex] Allergy Unknown Verified 08/24/20 14:50 codeine Allergy Unknown Verified 08/24/20 14:50 hydrocodone Allergy Unknown Verified 08/24/20 14:50 hydromorphone [From Dilaudid] Allergy Unknown Verified 08/24/20 14:50 oxycodone [From Percocet] Allergy Unknown Verified 08/24/20 14:50 Sulfa (Sulfonamide Allergy Unknown Verified 08/24/20 14:50 Antibiotics) Review of Systems - Constitutional Constitutional: denies: Fever, Chills - Eyes Eyes: denies: Pain, Field loss, Vision loss - Ears, Nose & Throat Ears, Nose & Throat: denies: Ear pain, Nosebleeds, Bleeding gums - Cardiovascular Cariovascular: denies: Irregular heart rate, Palpitations, Chest pain, Lighthea dedness, Syncope, Exertional dyspnea - Respiratory Respiratory: denies: Cough, Sputum production, Wheezing, Hemoptysis, SOB at rest, SOB with exertion - Gastrointestinal Gastrointestinal: denies: Abdominal pain, Diarrhea, Rectal bleeding, Nausea, Vomiting - Genitourinary Genitourinary: denies: Dysuria, Frequency, Urgency, Incontinence - Musculoskeletal Musculoskeletal: reports: Limited range of motion, Joint swelling - Integumentary Integumentary: denies: Rash, Lumps - Neurological Neurological: reports: General weakness. denies: Focal weakness, Headache, Diz ziness, Numbness, Seizures, Incoordination, Slurred speech - Psychiatric Psychiatric: denies: Depression, Anxiety, Delusions - Endocrine Endocrine: denies: Polyuria, Intolerance to cold - Hematologic/Lymphatic Hematologic/Lymphatic: denies: Anemia, Bruising, Blood clots Exam - Vital Signs Vital Signs: Vital Signs x48h Temp Pulse Resp BP Pulse Ox 08/24/20 14:44 36.5 C 97 12 145/88 H 97 - Physical Exam General Appearance: positive: No acute distress, Alert. negative: Lethargic Eyes Bilateral: positive: Normal inspection, PERRL, No lid inflammation ENT: positive: ENT inspection nml, No signs of dehydration. negative: Purulent nasal drainage Neck: positive: Nml inspection, Trachea midline. negative: Thyromegaly, Tracheal deviation Respiratory: positive: Chest non-tender, No respiratory distress, Breath sounds nml. negative: Wheezes, Rales Cardiovascular: positive: Regular rate & rhythm, No murmur. negative: Tachycardia, Bradycardia, Systolic murmur, Diastolic murmur Peripheral Pulses: positive: 2+ Abdomen: positive: Non-tender, Nml bowel sounds, No distention. negative: Tenderness, Guarding Back: positive: Nml inspection Skin: positive: Color nml, Warm, Dry. negative: Cyanosis Extremities: positive: Nml appearance, Other (right hip pain, normal right distal neurovascular status). negative: Calf tenderness Neurologic/Psychiatric: positive: Oriented x3, Sensation nml, Weakness. negative: Sensory loss, Facial droop, Slurred/abnml speech Sepsis Event Note (H) - Evaluation Current Stage of Sepsis: Ruled out Conclusion/Plan - Problem List (1) Closed right hip fracture Conclusion/Plan: Patient had an unwitnessed fall and complain right hip pain, x-ray of right hip show subcapital femoral neck fracture. Orthopedic surgeon was consulted. Patient clearly stated she want to have surgery To prepare her hip injury. Patient denies any chest pain, shortness breathing, she denied loss of consciousness when she had a fall. Patient had Significantly elevated WBC at the 27, it is likely from reactive. Consult with orthopedic surgeon, n.p.o. after midnight, order EKG, PT/INR, Pain control. Patient had allergy for opiates and Tylenol. pro-operation cardiac risk index assessment: Pt has No cardiac history, except Atrial flutter. Revised cardiac Risk index for Estimated rate of myocardia infarction, pulmonary edema, ventricular fibrillation, cardiac arrest or completely heart block is estimated to 0.4%, low risk. Qualifiers: Encounter type: initial encounter Qualified Code(s): S72.001A - Fracture of unspecified part of neck of right femur, initial encounter for closed fracture (2) Atrial flutter Conclusion/Plan: Patient had a history of atrial flutter, We will resume home medication Cardizem, continue telemetry (3) Parkinson disease Conclusion/Plan: Patient has history of Parkinson disease, patient's state patient is not on any medication yet, Because the medication make patient more dizzy. Continue supportive to patient with dysphagia diet with nurse feeding patient, Aspiration precautions (4) Dementia Conclusion/Plan: Patient has a history of dementia. At this time, patient clearly stated she want to have surgery To repair her right hip injury. We will continue to support to patient Qualifiers: Dementia type: unspecified type Dementia behavioral disturbance: without behavioral disturbance Qualified Code(s): F03.90 - Unspecified dementia without behavioral disturbance (5) High blood pressure Conclusion/Plan: Patient has a history hypertension, we will resume home medication after confirmed by pharmacy Qualifiers: Hypertension type: unspecified Qualified Code(s): I10 - Essential (primary) hypertension - Lab Results Fish Bones: 08/24/20 15:25 08/24/20 15:25 Core Measures - Anticipated LOS I expect patient to be DC'd or transferred within 96 hours.: Yes - DVT/VTE - Prophylaxis VTE/DVT Device ordered at admit?: Yes VTE/DVT Prophylaxis med ordered at admit?: Yes
--- NOTE | 2020-08-24 17:02 | CT Report ---
PROCEDURE: CERVICAL SPINE WO INDICATIONS: fall, neck pain TECHNIQUE: Noncontrast 3 mm thick sections acquired from the skull base to the T4 level. Sagittal and coronal r eformats were then constructed. For radiation dose reduction, the following was used: automated exp osure control, adjustment of mA and/or kV according to patient size. COMPARISON: None. FINDINGS: Image quality: Excellent. Bones: No fractures or dislocations. Decreased intervertebral disc space and degenerative endplate changes are noted throughout cervical spine. Bilateral facet hypertrophic changes also noted. There i s mild to moderate central canal stenosis, no significant bony foraminal stenosis. Visualized superio r ribs are intact. Soft tissues: Prevertebral soft tissues are normal in thickness. No paravertebral hematomas. No ap ical pneumothoraces. Biapical scarring is seen. IMPRESSION: 1. No acute cervical spine fracture or dislocation. 2. Degenerative disc disease throughout cervical spine as above. Reviewed by: Bhavesh Paula MD on 08/24/2020 5:00 PM PDT Approved by: Bhavesh Paula MD on 08/24/2020 5:00 PM PDT Station ID: [id number]
--- NOTE | 2020-08-24 17:04 | CT Report ---
PROCEDURE: HEAD WO INDICATIONS: fall, headache, dementia TECHNIQUE: Noncontrast 4.5 mm thick angled axial sections acquired from the foramen magnum to the vertex. For r adiation dose reduction, the following was used: automated exposure control, adjustment of mA and/or kV according to patient size. COMPARISON: MRI of brain dated 12/30/[address] of brain dated 10/03/2018. FINDINGS: Image quality: Excellent. CSF spaces: Basal cisterns are patent. No extra-axial fluid collections. The ventricles are symmet les in size and shape. Brain: No intracranial bleeds or masses. There is cerebral volume loss for age, with resultant vent ricular and sulcal prominence. There are periventricular and deep white matter chronic small vessel ischemic changes. There is intracranial internal carotid artery atherosclerosis. Skull and face: Calvarium and visualized facial bones appear intact, without suspicious lesions. Sinuses: Visualized sinuses and mastoids are clear. IMPRESSION: 1. No CT evidence of acute intracranial bleed, midline shift or mass effect. 2. No acute skull fracture. 3. Age-appropriate atrophy and moderate white matter chronic small vessel ischemic changes. Reviewed by: Bhavesh Paula MD on 08/24/2020 5:03 PM PDT Approved by: Bhavesh Paula MD on 08/24/2020 5:03 PM PDT Station ID: [id number]
[2020-08-24] MEDS: KETOROLAC 15 MG/ML VIAL IVP PRN ×2 (17:41→20:54)
[2020-08-24] MEDS: SODIUM CHLORIDE FLUSH 0.9% 10 ML SYRINGE IVP SCH (17:41)
[2020-08-24] MEDS: SODIUM CHLORIDE 0.9% 1,000 ML IV SCH (17:41)
[2020-08-24] MEDS: LIDOCAINE PATCH 5% TOP PRN (17:55)
[2020-08-24] MEDS: diltiaZEM CD 120 MG CAPSULE PO SCH ×2 (18:04→20:55)
--- NOTE | 2020-08-24 18:54 | XRAY Report ---
PROCEDURE: Knee 3 View RT INDICATIONS: fall, pain TECHNIQUE: 3 views of the right knee were acquired. COMPARISON: None. FINDINGS: Bones: No fractures or dislocations. No suspicious bony lesions. Soft tissues: No joint effusion. No suspicious soft tissue calcifications. IMPRESSION: 1. No fracture or dislocation. Reviewed by: Miguel Ambrose MD on 08/24/2020 6:52 PM PDT Approved by: Miguel Ambrose MD on 08/24/2020 6:52 PM PDT Station ID: [id number]
[2020-08-24 19:26] LABS: BILIRUBIN,URINE NEGATIVE (NEGATIVE); GLUCOSE, URINE (UA) NEGATIVE (NEGATIVE); KETONES,URINE (UA) 15 mg/dL (NEGATIVE); LEUKOCYTE ESTERASE, URINE NEGATIVE (NEGATIVE); NITRITE,URINE NEGATIVE (NEGATIVE); OCCULT BLOOD,URINE NEGATIVE (NEGATIVE); PROTEIN,URINE NEGATIVE (NEGATIVE); UROBILINOGEN,URINE 0.2 (NORMAL) E.U./dL (NORMAL)
[2020-08-24 19:32] LABS: CLARITY,URINE CLEAR (CLEAR)
[2020-08-24 19:34] LABS: AMORPHOUS SEDIMENT,UR Few /LPF; BACTERIA,URINE None Seen /HPF (None Seen); RBC,URINE 0-5 /HPF (0-5); SQUAMOUS EPITHELIAL CELL,UR RARE Squamous (<= Few); WBC,URINE 0-3 /HPF (0-5)
--- NOTE | 2020-08-24 20:55 | CONSULTATION NOTE ---
DATE OF SERVICE: 08/24/2020 Physician: Max Bob MD REFERRING PHYSICIAN: Dr. Alexandr Peres in the emergency room department. CHIEF COMPLAINT: "My right hip hurts." HISTORY OF PRESENT ILLNESS: Patient is a 75-year-old woman who apparently fell out of her truck that she was exiting from her vehicle on the day of her admission. She landed onto a cement ro ad. Noted immediate pain in the right leg. She was unable to stand or weightbear due to pain. She was taken to the emergency room at [facility] where x-rays showed a displaced subcapita l hip fracture, right side. No other injuries are noted. No loss of conscious noted. No prior hip fractures. PHYSICAL EXAM: Today, patient has pain with range of motion of her right hip. Her leg is minimally shortened. There is some tenderness primarily in anterior groin on the right side. She moves her to es and her ankle on command. Sensation grossly intact in the foot. Good capillary filling noted. IMAGING: Review of x-rays were taken and shows a displaced subcapital right hip fracture. ASSESSMENT: Closed right subcapital hip fracture in this 75-year-old ambulatory female. She lives a t home with her . PLAN: The patient was admitted to the medical service for medical evaluation and stabilization. We will plan then on proceeding with a cementless right hip bipolar and the prostheses tomorrow once she has been cleared by medicine. TD: 08/24/2020 20:53
[2020-08-24] MEDS: CLINDAMYCIN 900 MG/50 ML 50 ML IV SCH (21:33)
[2020-08-25] MEDS: ACETAMINOPHEN 325 MG TABLET PO PRN ×4 (00:36→21:26)
[2020-08-25] MEDS: SODIUM CHLORIDE FLUSH 0.9% 10 ML SYRINGE IVP SCH ×4 (00:37→23:50)
[2020-08-25] MEDS: KETOROLAC 15 MG/ML VIAL IVP PRN ×3 (03:32→20:12)
[2020-08-25] MEDS: SODIUM CHLORIDE 0.9% 1,000 ML IV SCH ×3 (03:32→17:40)
[2020-08-25 05:09] LABS: BASOPHILS % (AUTO) 0.4 %; EOSINOPHILS % (AUTO) 0.4 %; HCT - HEMATOCRIT 33.4 % (37.0-47.0); LYMPHOCYTES % (AUTO) 14.6 %; MEAN CORPUSCULAR HEMOGLOBIN 25.4 pg (27.0-31.0); MEAN CORPUSCULAR HGB CONC 29.9 g/dL (32.0-36.0); MEAN CORPUSCULAR VOLUME 84.8 fL (81.0-99.0); MEAN PLATELET VOLUME 8.4 fL (7.9-10.8); MONOCYTES % (AUTO) 14.6 %; NEUTROPHILS % (AUTO) 69.6 %; PLT - PLATELET COUNT 369 10^3/uL (130-450); RED BLOOD COUNT 3.94 10^6/uL (4.20-5.40); RED CELL DISTRIBUTION WIDTH 13.7 % (12.0-15.0)
[2020-08-25 05:12] LABS: CALCIUM 8.7 mg/dL (8.5-10.3); CREATININE 0.5 mg/dL (0.4-1.0); POTASSIUM 3.5 mmol/L (3.5-5.0)
[2020-08-25 05:22] LABS: ABNORMAL LYMPHS % (MANUAL) 0 %; BAND NEUTROPHILS % (MANUAL) 0 %
[2020-08-25 05:58] LABS: DIFFERENTIAL COMMENT MANUAL DIFFERENTIAL; EOSINOPHILS # (MANUAL) 0.1 10^3/uL (0-0.7); LYMPHOCYTES # (MANUAL) 2.1 10^3/uL (1.5-3.5); LYMPHOCYTES % (MANUAL) 15 %; NEUTROPHILS # (MANUAL) 9.8 10^3/uL (1.5-6.6); PLATELET ESTIMATE, MANUAL NORMAL (130-450,000) (NORMAL); RBC MORPHOLOGY (MULTIPLE) NORMAL APPEARANCE (NORMAL)
[2020-08-25] MEDS: CLINDAMYCIN 900 MG/50 ML 50 ML IV SCH ×3 (06:33→21:28)
[2020-08-25] MEDS: diltiaZEM CD 120 MG CAPSULE PO SCH ×2 (08:50→21:28)
[2020-08-25] MEDS: LIDOCAINE PATCH 5% TOP PRN (08:50)
[2020-08-25] MEDS: SACCHAROMYCES BOULARDII 250 MG CAPSULE PO SCH ×2 (08:52→17:44)
--- NOTE | 2020-08-25 11:08 | PHARMACY PROGRESS NOTE ---
- Best Possible Medication History Admit Date and Time: 08/24/20 1555 Processed by: Pharmacy Medication History completed: Yes Secondary Source(s): Physician records, Pharmacy records, Insurance records As the person ultimately responsible for medication therapy, providers are able to order a medication from an existing home medication list in [facility] via the "Reconcile Routine" prior to Confirmation of that medication by print support specialist. Such practice is discouraged except when the physician, in their clinical judgment, deems that a medical need exists for a medication without regard to previous use.
--- NOTE | 2020-08-25 12:03 | ANESTHESIA ---
Pre-Anesthesia VS, & Labs - Diagnosis Fx L hip - Procedure L gee hip arthroplasty Vital Signs: Temp Pulse Resp BP Pulse Ox 36.3 C L 76 18 114/51 L 97 08/25/20 07:45 08/25/20 07:45 08/25/20 07:45 08/25/20 07:45 08/25/20 07:45 Height: 5 ft 4 in Weight (kg): 46.6 kg Body Mass Index: 17.6 BMI Classification: Underweight - NPO >8 hours - Is Patient ?: No - Lab Results Current Lab Results: Laboratory Tests 08/25/20 04:30: Sodium 142, Potassium 3.5, Chloride 107, Carbon Dioxide 26, Anion Gap 9.0, BUN 10, Creatinine 0.5, Estimated GFR (MDRD) 120, Glucose 107 H, Calcium 8.7 08/25/20 04:30: WBC 14.0 H, RBC 3.94 L, Hgb 10.0 L, Hct 33.4 L, MCV 84.8, MCH 25.4 L, MCHC 29.9 L, RDW 13.7, Plt Count 369, MPV 8.4, Neut # (Auto) Not Reportable, Lymph # (Auto) Not Reportable, [place] # (Auto) Not Reportable, Eos # (Auto) Not Reportable, Baso # (Auto) Not Reportable, Absolute Nucleated RBC Not Reportable, Total Counted 100, Band Neuts % (Manual) 0, Abnorm Lymph % (Manual) 0, Nucleated RBC % Not Reportable, Neutrophils # (Manual) 9.8 H, Lymphocytes # (Manual) 2.1, Monocytes # (Manual) 2.0 H, Eosinophils # (Manual) 0.1, Basophils # (Manual) 0.0, Differential Comment MANUAL DIFFERENTIAL, Platelet Estimate NORMAL (130-450,000), RBC Morph Micro Appear NORMAL APPEARANCE 08/24/20 16:34: Blood Type Recheck O POSITIVE 08/24/20 15:25: PT 13.6 H, INR 1.2 08/24/20 15:25: Sodium 138, Potassium 3.8, Chloride 103, Carbon Dioxide 25, Anion Gap 10.0, BUN 19, Creatinine 0.6, Estimated GFR (MDRD) 97, Glucose 138 H, Calcium 9.3, Total Bilirubin 0.6, AST 24, ALT 22, Alkaline Phosphatase 117, Total Protein 7.8, Albumin 3.9, Globulin 3.9, Albumin/Globulin Ratio 1.0, Lipase 69 H 08/24/20 15:25: WBC 27.2 H, RBC 4.29, Hgb 11.1 L, Hct 36.1 L, MCV 84.1, MCH 25.9 L, MCHC 30.7 L, RDW 14.0, Plt Count 410, MPV 8.3, Neut # (Auto) Not Reportable, Lymph # (Auto) Not Reportable, [place] # (Auto) Not Reportable, Eos # (Auto) Not Reportable, Baso # (Auto) Not Reportable, Absolute Nucleated RBC Not Reportable, Total Counted 100, Band Neuts % (Manual) 1, Abnorm Lymph % (Manual) 0, Nucleated RBC % Not Reportable, Neutrophils # (Manual) 21.5 H, Lymphocytes # (Manual) 4.1 H, Monocytes # (Manual) 1.6 H, Eosinophils # (Manual) 0.0, Basophils # (Manual) 0.0, Differential Comment MANUAL DIFFERENTIAL, WBC Morphology NORMAL APPEARANCE, Platelet Estimate NORMAL (130-450,000), Platelet Morphology NORMAL APPEARANCE, RBC Morph Micro Appear NORMAL APPEARANCE 08/24/20 15:25: Blood Type O POSITIVE, Antibody Screen NEGATIVE Lab results reviewed: Yes Fish Bones: 08/25/20 04:30 08/25/20 04:30 Home Medications and Allergies Home Medications: Ambulatory Orders Brimonidine 0.2% Ophth Drops [Alphagan P 0.2% Ophth Drops] 1 drops LEFTEYE TID 08/24/20 Active Medications Acetaminophen (Acetaminophen 325 Mg Tablet) 650 mg PO Q4HR PRN PRN Reason: Pain 1 to 4 Last Admin: 08/25/20 11:08 Dose: 650 mg Documented by: Albuterol (Albuterol Neb 2.5 Mg/3 Ml) 2.5 mg INH RTQ4H PRN PRN Reason: Wheezing Albuterol/Ipratropium (Ipratropium/Albuterol 3 Ml Neb) 3 ml INH QID PRN PRN Reason: Wheezing Diltiazem HCl (Diltiazem Cd 120 Mg Capsule) 120 mg PO BID [facility] Last Admin: 08/25/20 08:50 Dose: 120 mg Documented by: Enoxaparin Sodium (Enoxaparin 40 Mg/0.4 Ml Syringe) 40 mg SUBQ DAILY [facility] Last Admin: 08/25/20 10:55 Dose: Not Given Documented by: Clindamycin Phosphate (Cleocin 900 Mg/50 Ml) 50 mls @ 50 mls/hr IV Q8HR [facility] Last Infusion: 08/25/20 07:33 Dose: Infused Documented by: Sodium Chloride (Normal Saline 0.9%) 1,000 mls @ 83.3 mls/hr IV .Q12H1M [facility] Stop: 08/25/20 19:23 Last Admin: 08/25/20 08:49 Dose: 83.3 mls/hr Documented by: Ketorolac Tromethamine (Ketorolac 15 Mg/Ml Vial) 15 mg IVP Q6HR PRN PRN Reason: PAIN Stop: 08/29/20 16:00 Last Admin: 08/25/20 09:48 Dose: 15 mg Documented by: Lidocaine (Lidocaine Patch 5%) 1 patch TOP DAILY PRN PRN Reason: PAIN Last Admin: 08/25/20 08:50 Dose: 1 patch Documented by: Ondansetron HCl (Ondansetron 4 Mg/2 Ml Vial) 4 mg IVP Q6HR PRN PRN Reason: Nausea / Vomiting Saccharomyces Boulardii (Saccharomyces Boulardii 250 Mg Capsule) 250 mg PO BIDWM [facility] Last Admin: 08/25/20 08:52 Dose: 250 mg Documented by: Sodium Chloride (Sodium Chloride Flush 0.9% 10 Ml Syringe) 10 ml IVP PRN PRN PRN Reason: NEEDED PER PROVIDER ORDERS Sodium Chloride (Sodium Chloride Flush 0.9% 10 Ml Syringe) 10 ml IVP 0100,0900,1700 [facility] Last Admin: 08/25/20 08:50 Dose: Not Given Documented by: Aspirin [Children's Aspirin] 81 mg PO DAILY 08/05/18 diltiaZEM CD [Cardizem Cd] 120 mg PO BID 10/28/18 Multivitamin [One-Daily Multi-Vitamin] 1 tab PO DAILY 01/15/19 Brimonidine 0.2% Ophth Drops [Alphagan P 0.2% Ophth Drops] 1 drops LEFTEYE TID 08/24/20 Allergies/Adverse Reactions: Allergies Allergy/AdvReac Type Severity Reaction Status Date / Time cephalexin [From Keflex] Allergy Unknown Verified 08/24/20 14:50 codeine Allergy Unknown Verified 08/24/20 14:50 hydrocodone Allergy Unknown Verified 08/24/20 14:50 hydromorphone [From Dilaudid] Allergy Unknown Verified 08/24/20 14:50 oxycodone [From Percocet] Allergy Unknown Verified 08/24/20 14:50 Sulfa (Sulfonamide Allergy Unknown Verified 08/24/20 14:50 Antibiotics) Anes History & Medical History - Anesthetic History Anesthesia Complications: reports: No previous complications Family history of Anesthesia Complications: Denies Family history of Malignant Hyperthermia: Denies - Medical History Cardiovascular: reports: Hypertension, Atrial flutter Pulmonary: reports: Asthma Gastrointestinal: reports: Chronic constipation Urinary: reports: Incontinence Neuro: reports: Dementia, Parkinson's Musculoskeletal: reports: Chronic back pain Endocrine/Autoimmune: reports: None Blood Disorders: reports: None Skin: reports: None Smoking Status: Never smoker - Surgical History Gynecologic: reports: Mastectomy Exam General: Alert, Oriented x3, Cooperative Dental: WNL Mouth Openin Fingerbreadth Neck Mobility: Normal Mallampati classification: II Thyromental Distance: 4-6 cm Respiratory: Lungs clear, Normal breath sounds, No respiratory distress Cardiovascular: Regular rate (hx a-flutter) Mental/Cognitive Status: Alert/Oriented X3, Normal for patient, Other ( describes dementia, pt appropriate and oriented during interview but elects to have sign anesthesia consent) Plan Anesthesia Type: General (back-up), Spinal, Fascia Iliaca Block (possible, post- op) Consent for Procedure(s) Verified and Reviewed: Yes Code Status: Attempt Resuscitation ASA classification: 3-Severe systemic disease Is this case an emergency?: No
[2020-08-25] MEDS ORDERED: BUPIVACAINE 0.5% PF 30 ML VIAL ONE (13:11)
[2020-08-25] MEDS ORDERED: LIDOCAINE 2%-EPI 1:100000 20 ML MDV ONE (13:11)
--- NOTE | 2020-08-25 13:33 | PROVIDER PROGRESS NOTE ---
Assessment/Plan - Current Meds Current Meds: Current Medications Generic Name Dose Route Start Last Admin Trade Name Freq PRN Reason Stop Dose Admin Acetaminophen 650 mg 08/24/20 15:55 08/25/20 11:08 Acetaminophen 325 Mg Tablet PO 650 mg Q4HR PRN Administration Pain 1 to 4 Diltiazem HCl 120 mg 08/24/20 17:51 08/25/20 08:50 Diltiazem Cd 120 Mg Capsule PO 120 mg BID KIAH Administration Enoxaparin Sodium 40 mg 08/25/20 14:00 08/25/20 10:55 Enoxaparin 40 Mg/0.4 Ml Syringe SUBQ Not Given DAILY KIAH Clindamycin Phosphate 50 mls @ 50 mls/hr 08/24/20 22:00 08/25/20 07:33 Cleocin 900 Mg/50 Ml IV Infused Q8HR KIAH Infusion Sodium Chloride 1,000 mls @ 83.3 mls/hr 08/25/20 07:23 08/25/20 08:49 Normal Saline 0.9% IV 08/25/20 19:23 83.3 mls/hr .Q12H1M KIAH Administration Ketorolac Tromethamine 15 mg 08/24/20 16:01 08/25/20 09:48 Ketorolac 15 Mg/Ml Vial IVP 08/29/20 16:00 15 mg Q6HR PRN Administration PAIN Lidocaine 1 patch 08/24/20 16:14 08/25/20 08:50 Lidocaine Patch 5% TOP 1 patch DAILY PRN Administration PAIN Saccharomyces Boulardii 250 mg 08/25/20 08:00 08/25/20 08:52 Saccharomyces Boulardii 250 Mg Capsule PO 250 mg BIDWM KIAH Administration Sodium Chloride 10 ml 08/24/20 17:00 08/25/20 08:50 Sodium Chloride Flush 0.9% 10 Ml Syringe IVP Not Given 0100,0900,1700 KIAH - Lab Result Fish Bone Diagrams: 08/25/20 04:30 08/25/20 04:30 - Additional Planning My Orders: My Active Orders 08/24/20 22:00 Clindamycin 900 mg/50 ml [Cleocin 900 mg/50 ml] 50 ml IV Q8HR 08/25/20 00:01 DIET [NPO except Meds at Midnight] [DIET] Additional Planning Notes: No interval changes in exam or OR plans. discussed with patient and her our plans for today. All questions answered. Will proced with surgery when OR is ready. Objective Vital Signs: Vital Signs - 24 hr 08/24/20 08/24/20 08/24/20 14:44 17:00 20:49 Temperature 36.5 C 36.7 C 36.9 C Heart Rate 97 Heart Rate [ 89 93 Brachial] Respiratory 12 16 16 Rate Blood Pressure 145/88 H Blood Pressure 142/69 H 152/63 H [Right Brachial artery] O2 Saturation 97 96 97 08/25/20 08/25/20 08/25/20 00:45 04:33 07:40 Temperature 36.9 C 36.9 C Heart Rate 97 Heart Rate [ 93 89 Brachial] Respiratory 14 16 18 Rate Blood Pressure Blood Pressure 141/65 H 139/55 H [Right Brachial artery] O2 Saturation 98 96 08/25/20 07:45 Temperature 36.3 C L Heart Rate Heart Rate [ 76 Brachial] Respiratory 18 Rate Blood Pressure Blood Pressure 114/51 L [Right Brachial artery] O2 Saturation 97 Oxygen O2 Source Room air I&O (Last 24 Hrs): Intake and Output Totals x24h 08/23/20 08/24/20 08/25/20 23:59 23:59 23:59 Intake Total 290 1563.33 Output Total 300 350 Balance -10 1213.33 - Results Results: Laboratory Results WBC 14.0 x10^3/uL (4.8-10.8) H 08/25/20 04:30 RBC 3.94 10^6/uL (4.20-5.40) L 08/25/20 04:30 Hgb 10.0 g/dL (12.0-16.0) L 08/25/20 04:30 Hct 33.4 % (37.0-47.0) L 08/25/20 04:30 MCV 84.8 fL (81.0-99.0) 08/25/20 04:30 MCH 25.4 pg (27.0-31.0) L 08/25/20 04:30 MCHC 29.9 g/dL (32.0-36.0) L 08/25/20 04:30 RDW 13.7 % (12.0-15.0) 08/25/20 04:30 Plt Count 369 10^3/uL (130-450) 08/25/20 04:30 MPV 8.4 fL (7.9-10.8) 08/25/20 04:30 Neut # (Auto) Not Reportable 08/25/20 04:30 Lymph # (Auto) Not Reportable 08/25/20 04:30 [place] # (Auto) Not Reportable 08/25/20 04:30 Eos # (Auto) Not Reportable 08/25/20 04:30 Baso # (Auto) Not Reportable 08/25/20 04:30 Absolute Nucleated RBC Not Reportable 08/25/20 04:30 Total Counted 100 08/25/20 04:30 Band Neuts % (Manual) 0 % (0-10) 08/25/20 04:30 Abnorm Lymph % (Manual) 0 % 08/25/20 04:30 Nucleated RBC % Not Reportable 08/25/20 04:30 Neutrophils # (Manual) 9.8 10^3/uL (1.5-6.6) H 08/25/20 04:30 Lymphocytes # (Manual) 2.1 10^3/uL (1.5-3.5) 08/25/20 04:30 Monocytes # (Manual) 2.0 10^3/uL (0.0-1.0) H 08/25/20 04:30 Eosinophils # (Manual) 0.1 10^3/uL (0-0.7) 08/25/20 04:30 Basophils # (Manual) 0.0 10^3/uL (0-0.1) 08/25/20 04:30 Differential Comment MANUAL DIFFERENTIAL 08/25/20 04:30 WBC Morphology NORMAL APPEARANCE (NORMAL) 08/24/20 15:25 Platelet Estimate NORMAL (130-450,000) (NORMAL) 08/25/20 04:30 Platelet Morphology NORMAL APPEARANCE (NORMAL) 08/24/20 15:25 RBC Morph Micro Appear NORMAL APPEARANCE (NORMAL) 08/25/20 04:30 PT 13.6 secs (9.9-12.6) H 08/24/20 15:25 INR 1.2 (0.8-1.2) 08/24/20 15:25 Sodium 142 mmol/L (135-145) 08/25/20 04:30 Potassium 3.5 mmol/L (3.5-5.0) 08/25/20 04:30 Chloride 107 mmol/L (101-111) 08/25/20 04:30 Carbon Dioxide 26 mmol/L (21-32) 08/25/20 04:30 Anion Gap 9.0 (6-13) 08/25/20 04:30 BUN 10 mg/dL (6-20) 08/25/20 04:30 Creatinine 0.5 mg/dL (0.4-1.0) 08/25/20 04:30 Estimated GFR (MDRD) 120 (>89) 08/25/20 04:30 Glucose 107 mg/dL (70-100) H 08/25/20 04:30 Calcium 8.7 mg/dL (8.5-10.3) 08/25/20 04:30 Total Bilirubin 0.6 mg/dL (0.2-1.0) 08/24/20 15:25 AST 24 IU/L (10-42) 08/24/20 15:25 ALT 22 IU/L (10-60) 08/24/20 15:25 Alkaline Phosphatase 117 IU/L (42-121) 08/24/20 15:25 Total Protein 7.8 g/dL (6.7-8.2) 08/24/20 15:25 Albumin 3.9 g/dL (3.2-5.5) 08/24/20 15:25 Globulin 3.9 g/dL (2.1-4.2) 08/24/20 15:25 Albumin/Globulin Ratio 1.0 (1.0-2.2) 08/24/20 15:25 Lipase 69 U/L (22-51) H 08/24/20 15:25 Urine Color YELLOW 08/24/20 19:10 Urine Clarity CLEAR (CLEAR) 08/24/20 19:10 Urine pH 7.0 PH (5.0-7.5) 08/24/20 19:10 Ur Specific [place] 1.020 (1.002-1.030) 08/24/20 19:10 Urine Protein NEGATIVE mg/dL (NEGATIVE) 08/24/20 19:10 Urine Glucose (UA) NEGATIVE mg/dL (NEGATIVE) 08/24/20 19:10 Urine Ketones 15 mg/dL (NEGATIVE) H 08/24/20 19:10 Urine Occult Blood NEGATIVE (NEGATIVE) 08/24/20 19:10 Urine Nitrite NEGATIVE (NEGATIVE) 08/24/20 19:10 Urine Bilirubin NEGATIVE (NEGATIVE) 08/24/20 19:10 Urine Urobilinogen 0.2 (NORMAL) E.U./dL (NORMAL) 08/24/20 19:10 Ur Leukocyte Esterase NEGATIVE (NEGATIVE) 08/24/20 19:10 Urine RBC 0-5 /HPF (0-5) 08/24/20 19:10 Urine WBC 0-3 /HPF (0-5) 08/24/20 19:10 Ur Squamous Epith Cells RARE Squamous (<= Few) 08/24/20 19:10 Amorphous Sediment Few /LPF 08/24/20 19:10 Urine Bacteria None Seen /HPF (None Seen) 08/24/20 19:10 Urine Culture Comments NOT INDICATED 08/24/20 19:10 Blood Type O POSITIVE 08/24/20 15:25 Blood Type Recheck O POSITIVE 08/24/20 16:34 Antibody Screen NEGATIVE 08/24/20 15:25 Sepsis Event Note (H) - Evaluation Current Stage of Sepsis: Ruled out ABX Reporting Has patient been on IV antibiotics over the past 48 hours?: No
[2020-08-25] MEDS ORDERED: PROPOFOL 1000 MG/100 ML 1,000 MG/100 ML BOTTLE IV ONE (13:44)
[2020-08-25] MEDS ORDERED: MIDAZOLAM 2 MG/2 ML VIAL ONE (13:45)
[2020-08-25] MEDS ORDERED: PHENYLEPHRINE 10 MG/ML VIAL ONE (13:49)
--- NOTE | 2020-08-25 13:51 | PROVIDER PROGRESS NOTE ---
Assessment/Plan - Problem List (1) Closed right hip fracture Qualifiers: Encounter type: initial encounter Qualified Code(s): S72.001A - Fracture of unspecified part of neck of right femur, initial encounter for closed fracture Assessment/Plan: 08/25 pt plan to have surgery on this afternoon. will followup with care, continue pain control, Continue DVT prophylaxis per surgeon, will have PT/OT for pt, consult with rn social work for Disposition. Patient had an unwitnessed fall and complain right hip pain, x-ray of right hip show subcapital femoral neck fracture. Orthopedic surgeon was consulted. Patient clearly stated she want to have surgery To prepare her hip injury. Patient denies any chest pain, shortness breathing, she denied loss of consciousness when she had a fall. Patient had Significantly elevated WBC at the 27, it is likely from reactive. Consult with orthopedic surgeon, n.p.o. after midnight, order EKG, PT/INR, Pain control. Patient had allergy for opiates and Tylenol. pro-operation cardiac risk index assessment: Pt has No cardiac history, except Atrial flutter. Revised cardiac Risk index for Estimated rate of myocardia infarction, pulmonary edema, ventricular fibrillation, cardiac arrest or completely heart block is estimated to 0.4%, low risk. Qualifiers: Encounter type: initial encounter Qualified Code(s): S72.001A - Fracture of unspecified part of neck of right femur, initial encounter for closed fracture (2) Atrial flutter Conclusion/Plan: 08/25 stable Patient had a history of atrial flutter, We will resume home medication Cardizem, continue telemetry (3) Parkinson disease Conclusion/Plan: Patient has history of Parkinson disease, patient's state patient is not on any medication yet, Because the medication make patient more dizzy. Continue supportive to patient with dysphagia diet with nurse feeding patient, Aspiration precautions (4) Dementia Conclusion/Plan: Patient has a history of dementia. At this time, patient clearly stated she want to have surgery To repair her right hip injury. We will continue to support to patient Qualifiers: Dementia type: unspecified type Dementia behavioral disturbance: without behavioral disturbance Qualified Code(s): F03.90 - Unspecified dementia without behavioral disturbance (5) High blood pressure Conclusion/Plan: 08/25 stable, continue home meds Patient has a history hypertension, we will resume home medication after confirmed by pharmacy (4) Dementia Qualifiers: Dementia type: unspecified type Dementia behavioral disturbance: without behavioral disturbance Qualified Code(s): F03.90 - Unspecified dementia without behavioral disturbance (5) High blood pressure Qualifiers: Hypertension type: unspecified Qualified Code(s): I10 - Essential (primary) hypertension - Current Meds Current Meds: Current Medications Generic Name Dose Route Start Last Admin Trade Name Freq PRN Reason Stop Dose Admin Acetaminophen 650 mg 08/24/20 15:55 08/25/20 11:08 Acetaminophen 325 Mg Tablet PO 650 mg Q4HR PRN Administration Pain 1 to 4 Diltiazem HCl 120 mg 08/24/20 17:51 08/25/20 08:50 Diltiazem Cd 120 Mg Capsule PO 120 mg BID KIAH Administration Enoxaparin Sodium 40 mg 08/25/20 14:00 08/25/20 10:55 Enoxaparin 40 Mg/0.4 Ml Syringe SUBQ Not Given DAILY KIAH Clindamycin Phosphate 50 mls @ 50 mls/hr 08/24/20 22:00 08/25/20 07:33 Cleocin 900 Mg/50 Ml IV Infused Q8HR KIAH Infusion Sodium Chloride 1,000 mls @ 83.3 mls/hr 08/25/20 07:23 08/25/20 08:49 Normal Saline 0.9% IV 08/25/20 19:23 83.3 mls/hr .Q12H1M KIAH Administration Ketorolac Tromethamine 15 mg 08/24/20 16:01 08/25/20 09:48 Ketorolac 15 Mg/Ml Vial IVP 08/29/20 16:00 15 mg Q6HR PRN Administration PAIN Lidocaine 1 patch 08/24/20 16:14 08/25/20 08:50 Lidocaine Patch 5% TOP 1 patch DAILY PRN Administration PAIN Saccharomyces Boulardii 250 mg 08/25/20 08:00 08/25/20 08:52 Saccharomyces Boulardii 250 Mg Capsule PO 250 mg BIDWM KIAH Administration Sodium Chloride 10 ml 08/24/20 17:00 08/25/20 08:50 Sodium Chloride Flush 0.9% 10 Ml Syringe IVP Not Given 0100,0900,1700 KIAH - Lab Result Fish Bone Diagrams: 08/25/20 04:30 08/25/20 04:30 - Additional Planning My Orders: My Active Orders 08/24/20 15:55 Telemetry- [RC] Q4HR Acetaminophen [Tylenol] 650 mg PO Q4HR PRN Ondansetron Inj [Zofran Inj] 4 mg IVP Q6HR PRN Sodium Chloride Flush 0.9% [Normal Saline Flush 0.9%] 10 ml IVP PRN PRN 08/24/20 15:56 Activity Orders [RC] Q2HR IO [RC] IOSHIFT Initiate Bowel Care Protocol [RC] .protocol Initiate Flu Vaccine Screening [RC] ONCE Initiate Line Care Protocol [RC] QSHIFT Initiate Personal Care Protoco [RC] .protocol Initiate Pneumonia Vaccine Scr [RC] ONCE Vital Signs [RC] Q4HR Code Status [OTHERS] Routine Condition of Patient [OTHERS] Routine DVT Prophylaxis [OTHERS] Routine 08/24/20 15:57 IV Insert [RC] .ONCE 08/24/20 15:58 SCDs [RC] QSHIFT 08/24/20 15:59 Orthopedics Consult [CONS] Routine 08/24/20 16:01 Ketorolac Inj (15Mg) [Toradol Inj (15Mg)] 15 mg IVP Q6HR PRN 08/24/20 16:14 Lidocaine Patch 5% [Lidoderm Patch] 1 patch TOP DAILY PRN 08/24/20 16:15 Albuterol 2.5 mg INH RTQ4H PRN Ipratropium/Albuterol [Duoneb] 3 ml INH QID PRN 08/24/20 17:00 Sodium Chloride Flush 0.9% [Normal Saline Flush 0.9%] 10 ml IVP 0100,0900,1700 08/24/20 17:44 Code Status [OTHERS] Routine 08/24/20 17:51 diltiaZEM CD [Cardizem Cd] 120 mg PO BID 08/24/20 18:26 Miscellaenous Nursing Order [RC] QSHIFT 08/25/20 07:23 Sodium Chloride 0.9% [Normal Saline 0.9%] 1,000 ml IV 83.3 mls/hr 08/25/20 08:00 Saccharomyces Boulardii [Florastor] 250 mg PO BIDWM 08/25/20 12:55 Nebulizer/MDI Tx. [RC] .QID 08/25/20 14:00 Enoxaparin [Lovenox] 40 mg SUBQ DAILY 08/26/20 05:00 BMP - BASIC METABOLIC PANEL [CHEM] DAILYLAB CBC - COMP BLD CT W/AUTO DIFF [HEME] DAILYLAB 08/27/20 05:00 BMP - BASIC METABOLIC PANEL [CHEM] DAILYLAB CBC - COMP BLD CT W/AUTO DIFF [HEME] DAILYLAB 08/28/20 05:00 BMP - BASIC METABOLIC PANEL [CHEM] DAILYLAB CBC - COMP BLD CT W/AUTO DIFF [HEME] DAILYLAB 08/29/20 05:00 BMP - BASIC METABOLIC PANEL [CHEM] DAILYLAB CBC - COMP BLD CT W/AUTO DIFF [HEME] DAILYLAB 08/30/20 05:00 BMP - BASIC METABOLIC PANEL [CHEM] DAILYLAB CBC - COMP BLD CT W/AUTO DIFF [HEME] DAILYLAB Subjective - Subjective Patient Reports: Feeling Better Objective Vital Signs: Vital Signs - 24 hr 08/24/20 08/24/20 08/24/20 14:44 17:00 20:49 Temperature 36.5 C 36.7 C 36.9 C Heart Rate 97 Heart Rate [ 89 93 Brachial] Respiratory 12 16 16 Rate Blood Pressure 145/88 H Blood Pressure 142/69 H 152/63 H [Right Brachial artery] O2 Saturation 97 96 97 08/25/20 08/25/20 08/25/20 00:45 04:33 07:40 Temperature 36.9 C 36.9 C Heart Rate 97 Heart Rate [ 93 89 Brachial] Respiratory 14 16 18 Rate Blood Pressure Blood Pressure 141/65 H 139/55 H [Right Brachial artery] O2 Saturation 98 96 08/25/20 07:45 Temperature 36.3 C L Heart Rate Heart Rate [ 76 Brachial] Respiratory 18 Rate Blood Pressure Blood Pressure 114/51 L [Right Brachial artery] O2 Saturation 97 Oxygen O2 Source Room air I&O (Last 24 Hrs): Intake and Output Totals x24h 08/23/20 08/24/20 08/25/20 23:59 23:59 23:59 Intake Total 290 1563.33 Output Total 300 350 Balance -10 1213.33 General: Alert, Cooperative, No acute distress HEENT: Atraumatic Neck: Supple Lymphatic: no adenopathy Neuro: Alert, Non Focal Cardiovascular: Regular rate, Normal S1, Normal S2 Respiratory: Chest non-tender, No respiratory distress, Breath sounds nml Abdomen: Normal bowel sounds, Soft Extremities: Normal pulses - Results Results: Laboratory Results WBC 14.0 x10^3/uL (4.8-10.8) H 08/25/20 04:30 RBC 3.94 10^6/uL (4.20-5.40) L 08/25/20 04:30 Hgb 10.0 g/dL (12.0-16.0) L 08/25/20 04:30 Hct 33.4 % (37.0-47.0) L 08/25/20 04:30 MCV 84.8 fL (81.0-99.0) 08/25/20 04:30 MCH 25.4 pg (27.0-31.0) L 08/25/20 04:30 MCHC 29.9 g/dL (32.0-36.0) L 08/25/20 04:30 RDW 13.7 % (12.0-15.0) 08/25/20 04:30 Plt Count 369 10^3/uL (130-450) 08/25/20 04:30 MPV 8.4 fL (7.9-10.8) 08/25/20 04:30 Neut # (Auto) Not Reportable 08/25/20 04:30 Lymph # (Auto) Not Reportable 08/25/20 04:30 [place] # (Auto) Not Reportable 08/25/20 04:30 Eos # (Auto) Not Reportable 08/25/20 04:30 Baso # (Auto) Not Reportable 08/25/20 04:30 Absolute Nucleated RBC Not Reportable 08/25/20 04:30 Total Counted 100 08/25/20 04:30 Band Neuts % (Manual) 0 % (0-10) 08/25/20 04:30 Abnorm Lymph % (Manual) 0 % 08/25/20 04:30 Nucleated RBC % Not Reportable 08/25/20 04:30 Neutrophils # (Manual) 9.8 10^3/uL (1.5-6.6) H 08/25/20 04:30 Lymphocytes # (Manual) 2.1 10^3/uL (1.5-3.5) 08/25/20 04:30 Monocytes # (Manual) 2.0 10^3/uL (0.0-1.0) H 08/25/20 04:30 Eosinophils # (Manual) 0.1 10^3/uL (0-0.7) 08/25/20 04:30 Basophils # (Manual) 0.0 10^3/uL (0-0.1) 08/25/20 04:30 Differential Comment MANUAL DIFFERENTIAL 08/25/20 04:30 WBC Morphology NORMAL APPEARANCE (NORMAL) 08/24/20 15:25 Platelet Estimate NORMAL (130-450,000) (NORMAL) 08/25/20 04:30 Platelet Morphology NORMAL APPEARANCE (NORMAL) 08/24/20 15:25 RBC Morph Micro Appear NORMAL APPEARANCE (NORMAL) 08/25/20 04:30 PT 13.6 secs (9.9-12.6) H 08/24/20 15:25 INR 1.2 (0.8-1.2) 08/24/20 15:25 Sodium 142 mmol/L (135-145) 08/25/20 04:30 Potassium 3.5 mmol/L (3.5-5.0) 08/25/20 04:30 Chloride 107 mmol/L (101-111) 08/25/20 04:30 Carbon Dioxide 26 mmol/L (21-32) 08/25/20 04:30 Anion Gap 9.0 (6-13) 08/25/20 04:30 BUN 10 mg/dL (6-20) 08/25/20 04:30 Creatinine 0.5 mg/dL (0.4-1.0) 08/25/20 04:30 Estimated GFR (MDRD) 120 (>89) 08/25/20 04:30 Glucose 107 mg/dL (70-100) H 08/25/20 04:30 Calcium 8.7 mg/dL (8.5-10.3) 08/25/20 04:30 Total Bilirubin 0.6 mg/dL (0.2-1.0) 08/24/20 15:25 AST 24 IU/L (10-42) 08/24/20 15:25 ALT 22 IU/L (10-60) 08/24/20 15:25 Alkaline Phosphatase 117 IU/L (42-121) 08/24/20 15:25 Total Protein 7.8 g/dL (6.7-8.2) 08/24/20 15:25 Albumin 3.9 g/dL (3.2-5.5) 08/24/20 15:25 Globulin 3.9 g/dL (2.1-4.2) 08/24/20 15:25 Albumin/Globulin Ratio 1.0 (1.0-2.2) 08/24/20 15:25 Lipase 69 U/L (22-51) H 08/24/20 15:25 Urine Color YELLOW 08/24/20 19:10 Urine Clarity CLEAR (CLEAR) 08/24/20 19:10 Urine pH 7.0 PH (5.0-7.5) 08/24/20 19:10 Ur Specific [place] 1.020 (1.002-1.030) 08/24/20 19:10 Urine Protein NEGATIVE mg/dL (NEGATIVE) 08/24/20 19:10 Urine Glucose (UA) NEGATIVE mg/dL (NEGATIVE) 08/24/20 19:10 Urine Ketones 15 mg/dL (NEGATIVE) H 08/24/20 19:10 Urine Occult Blood NEGATIVE (NEGATIVE) 08/24/20 19:10 Urine Nitrite NEGATIVE (NEGATIVE) 08/24/20 19:10 Urine Bilirubin NEGATIVE (NEGATIVE) 08/24/20 19:10 Urine Urobilinogen 0.2 (NORMAL) E.U./dL (NORMAL) 08/24/20 19:10 Ur Leukocyte Esterase NEGATIVE (NEGATIVE) 08/24/20 19:10 Urine RBC 0-5 /HPF (0-5) 08/24/20 19:10 Urine WBC 0-3 /HPF (0-5) 08/24/20 19:10 Ur Squamous Epith Cells RARE Squamous (<= Few) 08/24/20 19:10 Amorphous Sediment Few /LPF 08/24/20 19:10 Urine Bacteria None Seen /HPF (None Seen) 08/24/20 19:10 Urine Culture Comments NOT INDICATED 08/24/20 19:10 Blood Type O POSITIVE 08/24/20 15:25 Blood Type Recheck O POSITIVE 08/24/20 16:34 Antibody Screen NEGATIVE 08/24/20 15:25 Sepsis Event Note (H) - Evaluation Current Stage of Sepsis: Ruled out ABX Reporting Has patient been on IV antibiotics over the past 48 hours?: No Current Medications - Current Medications Current Medications: Active Medications Acetaminophen (Acetaminophen 325 Mg Tablet) 650 mg PO Q4HR PRN PRN Reason: Pain 1 to 4 Last Admin: 08/25/20 11:08 Dose: 650 mg Documented by: Albuterol (Albuterol Neb 2.5 Mg/3 Ml) 2.5 mg INH RTQ4H PRN PRN Reason: Wheezing Albuterol/Ipratropium (Ipratropium/Albuterol 3 Ml Neb) 3 ml INH QID PRN PRN Reason: Wheezing Diltiazem HCl (Diltiazem Cd 120 Mg Capsule) 120 mg PO BID [facility] Last Admin: 08/25/20 08:50 Dose: 120 mg Documented by: Enoxaparin Sodium (Enoxaparin 40 Mg/0.4 Ml Syringe) 40 mg SUBQ DAILY [facility] Last Admin: 08/25/20 10:55 Dose: Not Given Documented by: Clindamycin Phosphate (Cleocin 900 Mg/50 Ml) 50 mls @ 50 mls/hr IV Q8HR [facility] Last Infusion: 08/25/20 07:33 Dose: Infused Documented by: Sodium Chloride (Normal Saline 0.9%) 1,000 mls @ 83.3 mls/hr IV .Q12H1M [facility] Stop: 08/25/20 19:23 Last Admin: 08/25/20 08:49 Dose: 83.3 mls/hr Documented by: Ketorolac Tromethamine (Ketorolac 15 Mg/Ml Vial) 15 mg IVP Q6HR PRN PRN Reason: PAIN Stop: 08/29/20 16:00 Last Admin: 08/25/20 09:48 Dose: 15 mg Documented by: Lidocaine (Lidocaine Patch 5%) 1 patch TOP DAILY PRN PRN Reason: PAIN Last Admin: 08/25/20 08:50 Dose: 1 patch Documented by: Ondansetron HCl (Ondansetron 4 Mg/2 Ml Vial) 4 mg IVP Q6HR PRN PRN Reason: Nausea / Vomiting Saccharomyces Boulardii (Saccharomyces Boulardii 250 Mg Capsule) 250 mg PO BIDWM [facility] Last Admin: 08/25/20 08:52 Dose: 250 mg Documented by: Sodium Chloride (Sodium Chloride Flush 0.9% 10 Ml Syringe) 10 ml IVP PRN PRN PRN Reason: NEEDED PER PROVIDER ORDERS Sodium Chloride (Sodium Chloride Flush 0.9% 10 Ml Syringe) 10 ml IVP 0100,0900,1700 [facility] Last Admin: 08/25/20 08:50 Dose: Not Given Documented by: Aspirin [Children's Aspirin] 81 mg PO DAILY 08/05/18 diltiaZEM CD [Cardizem Cd] 120 mg PO BID 10/28/18 Multivitamin [One-Daily Multi-Vitamin] 1 tab PO DAILY 01/15/19 Brimonidine 0.2% Ophth Drops [Alphagan P 0.2% Ophth Drops] 1 drops LEFTEYE TID 08/24/20
[2020-08-25] MEDS ORDERED: ENOXAPARIN 40 MG/0.4 ML SYRINGE SUBQ SCH (14:00)
[2020-08-25] MEDS ORDERED: BUPIVACAINE 0.5% PF 30 ML VIAL INFIL ONE ×2 (14:35)
[2020-08-25] MEDS ORDERED: LIDOCAINE 2%-EPI 1:100000 20 ML MDV SUBQ ONE ×2 (14:36)
--- NOTE | 2020-08-25 16:27 | OPERATIVE REPORT ---
Operative Report - General Admit Date: 08/24/20 Procedure Date: 08/25/20 Planned Procedure: Cementless right bipolar hip gee-arthroplasty Pre-Op Diagnosis: Displaced right subcapital hip fracture Procedure Performed: Cementless right bipolar hip gee-srhtroplasty Post Op Diagnosis: Same - Procedure Note Primary Surgeon: Judit Bob MD Secondary Surgeon: DINORAH Denny Anesthesia Provider: Carmine Elam MD Anesthesia Technique: General ET tube IV Fluids (mL): 600 Estimated Blood Loss (mL): 350 Complications: None
[2020-08-25] MEDS ORDERED: LACTATED RINGERS 1,000 ML IV ONE (16:32)
--- NOTE | 2020-08-25 16:33 | OPERATIVE REPORT ---
Operative Report - General Admit Date: 08/24/20 Procedure Date: 08/25/20 Planned Procedure: Cementless right hip bipolar gee-arthroplasty Pre-Op Diagnosis: Displaced right hip subcapital hip fracture Procedure Performed: Cementless right hip biplolar hip gee-arthroplasty Post Op Diagnosis: same - Procedure Note Primary Surgeon: Judit Bob MD
[2020-08-25] MEDS ORDERED: SODIUM CHLORIDE FLUSH 0.9% 10 ML SYRINGE IVP PRN (16:37)
[2020-08-25] MEDS ORDERED: ONDANSETRON 4 MG/2 ML VIAL IVP PRN ×2 (16:37→16:40)
[2020-08-25] MEDS ORDERED: ePHEDrine 50 MG/ML VIAL IVP PRN (16:40)
[2020-08-25] MEDS ORDERED: METOCLOPRAMIDE 10 MG/2 ML VIAL IVP PRN (16:40)
[2020-08-25] MEDS ORDERED: fentaNYL 100 MCG/2 ML VIAL IVP PRN (16:40)
[2020-08-25] MEDS ORDERED: MORPHINE 2 MG/ML CARPUJECT IVP PRN (16:40)
[2020-08-25] MEDS ORDERED: HYDROmorphone 0.5 MG/0.5 ML SYRINGE IVP PRN (16:40)
[2020-08-25] MEDS ORDERED: NALOXONE 0.4 MG/ML VIAL IVP PRN (16:40)
[2020-08-25] MEDS ORDERED: ATROPINE ABBOJECT 1 MG/10 ML SYRINGE IVP PRN (16:40)
[2020-08-25] MEDS ORDERED: SENNA 8.6 MG TABLET PO PRN (16:47)
[2020-08-25] MEDS ORDERED: oxyCODONE 5 MG TABLET PO PRN (16:47)
[2020-08-25] MEDS ORDERED: DOCUSATE SODIUM 100 MG CAPSULE PO PRN (16:47)
[2020-08-25] MEDS ORDERED: LACTATED RINGERS 1,000 ML IV SCH (17:00)
--- NOTE | 2020-08-25 17:15 | OPERATIVE REPORT ---
DATE OF SERVICE: 08/25/2020 Physician: Max Bob MD PREOPERATIVE DIAGNOSIS: Displaced, closed right subcapital hip fracture. POSTOPERATIVE DIAGNOSIS: Displaced, closed right subcapital hip fracture. PROCEDURE PERFORMED: Cementless right hip bipolar hemiarthroplasty. SURGEON: Max Bob MD SUPERVISOR [employer]ODUCTION: DINORAH Denny. ANESTHESIA: General. DESCRIPTION OF PROCEDURE: The patient was taken to the operating room on the afternoon of 08/25/2020 where she was placed under general anesthetic without any complications. She was then positioned on her side, right side up and held in place with the pegboard. She had well padded for her lower extr emities, as well as axillary cushion to protect the axillary nerve in this position. Once she was st abilized, we then prepped and draped the right hip and right leg free in the usual fashion for our pr ocedure. Through a curvilinear incision centered over the tip of the greater trochanter, we dissecte d through the skin and through the fascia myesha. Using electrocautery, we then sharply transected the short external rotators and approached the hip joint. Hemostasis was obtained with electrocautery. Charnley retractor was then used to retract the soft tissues, exposing the fracture. Using an oscil lating saw and a cutting jig, we then proceeded to do an osteotomy at the base of the femoral neck to accommodate our prostheses. After removing the bone, we were able to then see better the femoral he ad and the posterior hip capsule. Creating a T-type incision with electrocautery, we then retracted the flaps of our capsule using 2-0 Vicryl stay stitches. Palpating the femoral head, we then used a corkscrew extractor and placed this in the femoral head and with the help of our hip skid, we were ab le to extract the femoral head in its entirety. Placing this in the femoral head gauge, we determine d a 51 mm femoral head would be utilized. We then trialed this in our acetabulum and found this to b e a good fit. The excess soft tissue including the ligament of teres was then removed with a rongeur . Irrigated the acetabulum. We then proceeded to prepare the proximal femoral canal. Using a box o steotome, we widened our approach laterally in the area of the greater trochanter. We then used a cisco awl to determine the direction of the femoral shaft proximally down to the mid shaft area. We then sequentially used rigid femoral reamers to open up the canal proximally. We went up to a 14 mm rigid reamer and found that we were starting to obtain some chatter against the femoral shaft. At t his point, we then selected a #13 broach and proceeded to broach the proximal canal with first a 13, then a 14 broach. Satisfied with our fit clinically, we then inserted our trial prostheses having a 0 femoral neck with standard offset and with a 51 mm outside diameter prosthetic head. With traction on the leg, we were able to reduce this into the acetabulum easily. We then trialed the femoral pro stheses. We were able to extend the hip fully and it was stable in a sleep position with the leg ext ernally rotated. No pistoning was noted with traction on the leg. We then placed the leg in the sle ep position with the hip semiflexed and this too was stable. Holding the hip at about 90 degrees fle xion, we then internally rotated the leg to over 75-80 degrees and the hip joint itself appeared stab le. Satisfied with this, we then removed our trial prostheses out of the acetabulum of the femoral c anal. We irrigated the acetabulum and proximal femur with irrigation solution. We then inserted our final prostheses without any problems. After reducing the hip easily, we then noted the hip to be a gain stable, being able to extend the hip to full extension easily and with it in extension and exter nal rotation, there was no impingement. In the sleep position, it was stable. With the hip flexed a t 90 degrees, we were able to internally rotate the prostheses and leg to about nearly 80 degrees wit hout any subluxation of the hip. Satisfied with this, we then proceeded to irrigate the wound out ag ain thoroughly with saline. We then closed the wound in layers, reattaching the external rotators to the soft tissue attachment of the posterolateral proximal femur. Fascia myesha incision was then clos ed with [id number] stitches of 0 Vicryl. Finally, Vicryl simple interrupted stitches were used to close the subcutaneous tissues as well. Finally, skin andrew used to approximate the skin edge. We then injected 20 mL of 0.5% Marcaine with epinephrine for skin incision anesthesia. We then dres sed the wound with the leg in a hip abductor in position. The patient was then positioned supine on to her stretcher and taken to the recovery room in satisfactory condition. ESTIMATED BLOOD LOSS: 350 mL of blood. REPLACEMENT: 800 mL of crystalloid. COMPLICATIONS: None known. PLAN: The patient will begin on her standard postop regimen. We will get her standing tomorrow if p ossible and begin weightbearing as tolerated ambulation by the second and third postoperative day. T he patient's total hip precautions will be observed. TD: 08/25/2020 17:13
[2020-08-25] MEDS: ASPIRIN 325 MG TABLET PO SCH (17:44)
--- NOTE | 2020-08-25 18:24 | XRAY Report ---
PROCEDURE: Pelvis 1 View INDICATIONS: postop hip arthroplasty XR TECHNIQUE: 2 view(s) of the pelvis acquired. COMPARISON: Pelvic radiographs 08/24/2020. FINDINGS: Bones: Right hip arthroplasty projects in the expected location. Right femoral head resection. Soft tissues: Right hip postsurgical change within the soft tissues. Visualized bowel gas pattern is normal. No suspicious soft tissue calcifications. Right pelvic clips. IMPRESSION: Expected appearance of the right hip arthroplasty. Reviewed by: Cristian Pederson MD on 08/25/2020 6:22 PM PDT Approved by: Cristian Pederson MD on 08/25/2020 6:22 PM PDT Station ID: [id number]
[2020-08-26] MEDS: ACETAMINOPHEN 325 MG TABLET PO PRN ×4 (01:34→23:31)
[2020-08-26] MEDS: KETOROLAC 15 MG/ML VIAL IVP PRN ×4 (01:34→23:32)
[2020-08-26 04:47] LABS: BASOPHILS % (AUTO) 0.3 %; HCT - HEMATOCRIT 27.6 % (37.0-47.0); HGB - HEMOGLOBIN 8.1 g/dL (12.0-16.0); MEAN CORPUSCULAR HEMOGLOBIN 25.1 pg (27.0-31.0); MEAN CORPUSCULAR HGB CONC 29.3 g/dL (32.0-36.0); MEAN CORPUSCULAR VOLUME 85.4 fL (81.0-99.0); MEAN PLATELET VOLUME 8.3 fL (7.9-10.8); MONOCYTES % (AUTO) 13.2 %; PLT - PLATELET COUNT 295 10^3/uL (130-450); RED BLOOD COUNT 3.23 10^6/uL (4.20-5.40); RED CELL DISTRIBUTION WIDTH 13.7 % (12.0-15.0); WHITE BLOOD COUNT 14.8 x10^3/uL (4.8-10.8)
[2020-08-26 04:53] LABS: ABNORMAL LYMPHS % (MANUAL) 0 %
[2020-08-26 04:54] LABS: CREATININE 0.5 mg/dL (0.4-1.0); POTASSIUM 3.4 mmol/L (3.5-5.0)
[2020-08-26 05:33] LABS: BAND NEUTROPHILS % (MANUAL) 2 %; DIFFERENTIAL COMMENT MANUAL DIFFERENTIAL; LYMPHOCYTES # (MANUAL) 2.4 10^3/uL (1.5-3.5); LYMPHOCYTES % (MANUAL) 16 %; NEUTROPHILS # (MANUAL) 11.4 10^3/uL (1.5-6.6); PLATELET ESTIMATE, MANUAL NORMAL (130-450,000) (NORMAL); RBC MORPHOLOGY (MULTIPLE) NORMAL APPEARANCE (NORMAL)
[2020-08-26] MEDS: CLINDAMYCIN 900 MG/50 ML 50 ML IV SCH (05:40)
[2020-08-26] MEDS ORDERED: POTASSIUM CHLORIDE 20 MEQ TABLET PO ONE (07:07)
[2020-08-26] MEDS ORDERED: POTASSIUM CHLORIDE 20 MEQ/15 ML UDC PO SCH (08:00)
[2020-08-26] MEDS ORDERED: SODIUM CHLORIDE 0.9% 1,000 ML IV SCH (08:00)
[2020-08-26 08:09] LABS: ABSOLUTE RETICS # AUTO 0.038 10^6/uL (0.020-0.110); RED BLOOD COUNT 3.19 10^6/uL (4.20-5.40); RETICULOCYTE COUNT % (AUTO) 1.18 % (0.5-2.3)
[2020-08-26] MEDS: SODIUM CHLORIDE FLUSH 0.9% 10 ML SYRINGE IVP SCH ×3 (08:11→23:32)
[2020-08-26] MEDS: ASPIRIN 325 MG TABLET PO SCH ×2 (08:11→16:36)
[2020-08-26] MEDS: polyethylene glycoL 3350 17 GM PACKET PO SCH (08:11)
[2020-08-26] MEDS: SACCHAROMYCES BOULARDII 250 MG CAPSULE PO SCH ×2 (08:11→16:36)
[2020-08-26] MEDS: diltiaZEM CD 120 MG CAPSULE PO SCH ×2 (08:11→20:32)
[2020-08-26] MEDS: BRIMONIDINE 0.2% OPHTH DROPS 5 ML LEFTEYE SCH ×3 (08:28→20:31)
[2020-08-26 08:35] LABS: FERRITIN 50.2 ng/mL (11.0-306.8)
[2020-08-26 08:41] LABS: % IRON SATURATION 3 % (20-50); IRON 7 ug/dL (28-170); TOTAL IRON BINDING CAPACITY 255 ug/dL (250-450); TRANSFERRIN 182 mg/dL (192-382)
--- NOTE | 2020-08-26 10:26 | PROVIDER PROGRESS NOTE ---
Assessment/Plan - Problem List (1) Closed right hip fracture Qualifiers: Encounter type: initial encounter Qualified Code(s): S72.001A - Fracture of unspecified part of neck of right femur, initial encounter for closed fracture Assessment/Plan: 08/26 Patient ate most of her breakfast. she is Doing well. Continue PT and OT, continue pain control, continue aspirin for DVT prophylaxis 08/25 pt plan to have surgery on this afternoon. will followup with care, continue pain control, Continue DVT prophylaxis per surgeon, will have PT/OT for pt, consult with orchid worker for Disposition. Patient had an unwitnessed fall and complain right hip pain, x-ray of right hip show subcapital femoral neck fracture. Orthopedic surgeon was consulted. Patient clearly stated she want to have surgery To prepare her hip injury. Patient denies any chest pain, shortness breathing, she denied loss of consciousness when she had a fall. Patient had Significantly elevated WBC at the 27, it is likely from reactive. Consult with orthopedic surgeon, n.p.o. after midnight, order EKG, PT/INR, Pain control. Patient had allergy for opiates and Tylenol. pro-operation cardiac risk index assessment: Pt has No cardiac history, except Atrial flutter. Revised cardiac Risk index for Estimated rate of myocardia infarction, pulmonary edema, ventricular fibrillation, cardiac arrest or completely heart block is estimated to 0.4%, low risk. (2)anemia Patient Had significantly anemia,Hemoglobin is 8.1 today from 11.1 two days ago. patient just finished surgery. Anemia study show patient had significantly iron deficiency anemia Plus acute blood loss from surgery. We will continue H&H to monitor hemoglobin, order Iron for pt. (3) Atrial flutter Conclusion/Plan: 08/25 stable Patient had a history of atrial flutter, We will resume home medication Cardizem, continue telemetry (4) Parkinson disease Conclusion/Plan: Patient has history of Parkinson disease, patient's state patient is not on any medication yet, Because the medication make patient more dizzy. Continue supportive to patient with dysphagia diet with nurse feeding patient, Aspiration precautions (5) Dementia Conclusion/Plan: Patient has a history of dementia. At this time, patient clearly stated she want to have surgery To repair her right hip injury. We will continue to support to patient (6) High blood pressure Conclusion/Plan: 08/25 stable, continue home meds Patient has a history hypertension, we will resume home medication after confirmed by pharmacy (4) Dementia Qualifiers: Dementia type: unspecified type Dementia behavioral disturbance: without behavioral disturbance Qualified Code(s): F03.90 - Unspecified dementia without behavioral disturbance (5) High blood pressure Qualifiers: Hypertension type: unspecified Qualified Code(s): I10 - Essential (primary) hypertension - Current Meds Current Meds: Current Medications Generic Name Dose Route Start Last Admin Trade Name Freq PRN Reason Stop Dose Admin Acetaminophen 650 - 975 mg 08/25/20 16:37 08/26/20 05:40 Acetaminophen 325 Mg Tablet PO 650 mg Q4HR PRN Administration PAIN Aspirin 325 mg 08/25/20 17:00 08/26/20 08:11 Aspirin 325 Mg Tablet PO 325 mg BIDWM KIAH Administration Brimonidine Tartrate 1 drops 08/26/20 08:00 08/26/20 08:28 Brimonidine 0.2% Ophth Drops 5 Ml LEFTEYE 1 drops TID KIAH Administration Diltiazem HCl 120 mg 08/24/20 17:51 08/26/20 08:11 Diltiazem Cd 120 Mg Capsule PO 120 mg BID KIAH Administration Docusate Sodium 100 mg 08/25/20 16:47 08/26/20 08:11 Docusate Sodium 100 Mg Capsule PO 100 mg BID PRN Administration Constipation Ketorolac Tromethamine 15 mg 08/24/20 16:01 08/26/20 08:12 Ketorolac 15 Mg/Ml Vial IVP 08/29/20 16:00 15 mg Q6HR PRN Administration PAIN Lidocaine 1 patch 08/24/20 16:14 08/25/20 08:50 Lidocaine Patch 5% TOP 1 patch DAILY PRN Administration PAIN Polyethylene Glycol 17 gm 08/26/20 09:00 08/26/20 08:11 Polyethylene Glycol 3350 17 Gm Packet PO 17 gm DAILY KIAH Administration Saccharomyces Boulardii 250 mg 08/25/20 08:00 08/26/20 08:11 Saccharomyces Boulardii 250 Mg Capsule PO 250 mg BIDWM KIAH Administration Sodium Chloride 10 ml 08/25/20 17:00 08/26/20 08:11 Sodium Chloride Flush 0.9% 10 Ml Syringe IVP 10 ml 0100,0900,1700 KIAH Administration - Lab Result Fish Bone Diagrams: 08/26/20 04:35 08/26/20 04:35 - Additional Planning My Orders: My Active Orders 08/25/20 12:55 Nebulizer/MDI Tx. [RC] .QID 08/26/20 Breakfast Dysphagia Mechanically Altered Diet [DIET] 08/26/20 08:00 Brimonidine 0.2% Ophth Drops [Alphagan P 0.2% Ophth Drops] 1 drops LEFTEYE TID 08/26/20 09:00 polyethylene glycoL 3350 [Miralax] 17 gm PO DAILY 08/26/20 10:24 Ferrous Sulfate [Feosol] 325 mg PO BIDWM 08/26/20 14:00 H&H [HEMOGLOBIN AND HEMATOCRIT] [HEME] Timed 08/26/20 22:00 H&H [HEMOGLOBIN AND HEMATOCRIT] [HEME] Timed 08/27/20 05:00 BMP - BASIC METABOLIC PANEL [CHEM] DAILYLAB CBC - COMP BLD CT W/AUTO DIFF [HEME] DAILYLAB 08/28/20 05:00 BMP - BASIC METABOLIC PANEL [CHEM] DAILYLAB CBC - COMP BLD CT W/AUTO DIFF [HEME] DAILYLAB 08/29/20 05:00 BMP - BASIC METABOLIC PANEL [CHEM] DAILYLAB CBC - COMP BLD CT W/AUTO DIFF [HEME] DAILYLAB 08/30/20 05:00 BMP - BASIC METABOLIC PANEL [CHEM] DAILYLAB CBC - COMP BLD CT W/AUTO DIFF [HEME] DAILYLAB Subjective - Subjective Patient Reports: Feeling Better Objective Vital Signs: Vital Signs - 24 hr 08/25/20 08/25/20 08/25/20 16:27 16:35 16:40 Temperature 37 C Heart Rate 75 77 77 Heart Rate [ Brachial] Respiratory 20 19 19 Rate Blood Pressure 116/56 L 118/58 L 117/59 L Blood Pressure [Right Brachial artery] O2 Saturation 100 100 100 08/25/20 08/25/20 08/25/20 16:45 16:49 16:54 Temperature 36.3 C L Heart Rate 71 71 68 Heart Rate [ 72 Brachial] Respiratory 14 18 18 Rate Blood Pressure 115/58 L 112/60 116/61 Blood Pressure 110/55 L [Right Brachial artery] O2 Saturation 99 100 100 08/25/20 08/25/20 08/25/20 17:00 17:05 17:15 Temperature 36.8 C 36.3 C L Heart Rate 71 75 Heart Rate [ 73 Brachial] Respiratory 18 20 16 Rate Blood Pressure 123/64 99/66 Blood Pressure 117/51 L [Right Brachial artery] O2 Saturation 100 99 100 08/25/20 08/25/20 08/25/20 18:15 19:12 20:15 Temperature 36.5 C 36.5 C Heart Rate 79 Heart Rate [ 84 79 Brachial] Respiratory 16 16 16 Rate Blood Pressure Blood Pressure 113/46 L 123/55 L [Right Brachial artery] O2 Saturation 99 98 08/25/20 08/26/20 08/26/20 23:49 04:41 08:22 Temperature 36.7 C 36.9 C Heart Rate Heart Rate [ 79 83 90 Brachial] Respiratory 16 16 18 Rate Blood Pressure Blood Pressure 100/46 L 105/52 L 115/61 [Right Brachial artery] O2 Saturation 96 98 98 Oxygen O2 Source Room air I&O (Last 24 Hrs): Intake and Output Totals x24h 08/24/20 08/25/20 08/26/20 23:59 23:59 23:59 Intake Total 290 2811.682 1663.33 Output Total 300 500 475 Balance -10 2311.682 1188.33 General: Alert, Oriented x3, Cooperative, No acute distress HEENT: Atraumatic Neck: Supple Lymphatic: no adenopathy Neuro: Alert, Non Focal, Oriented Times 3 Cardiovascular: Regular rate, Normal S1, Normal S2 Respiratory: Chest non-tender, No respiratory distress Abdomen: Normal bowel sounds, Soft, No tenderness Extremities: Normal pulses - Results Results: Laboratory Results WBC 14.8 x10^3/uL (4.8-10.8) H 08/26/20 04:35 RBC 3.19 10^6/uL (4.20-5.40) L 08/26/20 04:35 RBC 3.23 10^6/uL (4.20-5.40) L 08/26/20 04:35 Hgb 8.1 g/dL (12.0-16.0) L 08/26/20 04:35 Hct 27.6 % (37.0-47.0) L 08/26/20 04:35 MCV 85.4 fL (81.0-99.0) 08/26/20 04:35 MCH 25.1 pg (27.0-31.0) L 08/26/20 04:35 MCHC 29.3 g/dL (32.0-36.0) L 08/26/20 04:35 RDW 13.7 % (12.0-15.0) 08/26/20 04:35 Plt Count 295 10^3/uL (130-450) 08/26/20 04:35 MPV 8.3 fL (7.9-10.8) 08/26/20 04:35 Reticulocyte % (Auto) 1.18 % (0.5-2.3) 08/26/20 04:35 Neut # (Auto) Not Reportable 08/26/20 04:35 Lymph # (Auto) Not Reportable 08/26/20 04:35 [place] # (Auto) Not Reportable 08/26/20 04:35 Eos # (Auto) Not Reportable 08/26/20 04:35 Baso # (Auto) Not Reportable 08/26/20 04:35 Absolute Nucleated RBC Not Reportable 08/26/20 04:35 Total Counted 100 08/26/20 04:35 Band Neuts % (Manual) 2 % (0-10) 08/26/20 04:35 Abnorm Lymph % (Manual) 0 % 08/26/20 04:35 Nucleated RBC % Not Reportable 08/26/20 04:35 Neutrophils # (Manual) 11.4 10^3/uL (1.5-6.6) H 08/26/20 04:35 Lymphocytes # (Manual) 2.4 10^3/uL (1.5-3.5) 08/26/20 04:35 Monocytes # (Manual) 1.0 10^3/uL (0.0-1.0) 08/26/20 04:35 Eosinophils # (Manual) 0.0 10^3/uL (0-0.7) 08/26/20 04:35 Basophils # (Manual) 0.0 10^3/uL (0-0.1) 08/26/20 04:35 Differential Comment MANUAL DIFFERENTIAL 08/26/20 04:35 WBC Morphology NORMAL APPEARANCE (NORMAL) 08/24/20 15:25 Platelet Estimate NORMAL (130-450,000) (NORMAL) 08/26/20 04:35 Platelet Morphology NORMAL APPEARANCE (NORMAL) 08/24/20 15:25 RBC Morph Micro Appear NORMAL APPEARANCE (NORMAL) 08/26/20 04:35 Absolute Retic 0.038 10^6/uL (0.020-0.110) 08/26/20 04:35 PT 13.6 secs (9.9-12.6) H 08/24/20 15:25 INR 1.2 (0.8-1.2) 08/24/20 15:25 Sodium 140 mmol/L (135-145) 08/26/20 04:35 Potassium 3.4 mmol/L (3.5-5.0) L 08/26/20 04:35 Chloride 108 mmol/L (101-111) 08/26/20 04:35 Carbon Dioxide 23 mmol/L (21-32) 08/26/20 04:35 Anion Gap 9.0 (6-13) 08/26/20 04:35 BUN 11 mg/dL (6-20) 08/26/20 04:35 Creatinine 0.5 mg/dL (0.4-1.0) 08/26/20 04:35 Estimated GFR (MDRD) 120 (>89) 08/26/20 04:35 Glucose 99 mg/dL (70-100) 08/26/20 04:35 Calcium 8.0 mg/dL (8.5-10.3) L 08/26/20 04:35 Iron 7 ug/dL (28-170) L 08/26/20 04:35 TIBC 255 ug/dL (250-450) 08/26/20 04:35 % Saturation 3 % (20-50) L 08/26/20 04:35 Transferrin 182 mg/dL (192-382) L 08/26/20 04:35 Ferritin 50.2 ng/mL (11.0-306.8) 08/26/20 04:35 Total Bilirubin 0.6 mg/dL (0.2-1.0) 08/24/20 15:25 AST 24 IU/L (10-42) 08/24/20 15:25 ALT 22 IU/L (10-60) 08/24/20 15:25 Alkaline Phosphatase 117 IU/L (42-121) 08/24/20 15:25 Lactate Dehydrogenase 126 IU/L (91-225) 08/26/20 04:35 Total Protein 7.8 g/dL (6.7-8.2) 08/24/20 15:25 Albumin 3.9 g/dL (3.2-5.5) 08/24/20 15:25 Globulin 3.9 g/dL (2.1-4.2) 08/24/20 15:25 Albumin/Globulin Ratio 1.0 (1.0-2.2) 08/24/20 15:25 Lipase 69 U/L (22-51) H 08/24/20 15:25 Vitamin B12 383 pg/mL (180-914) 08/26/20 04:35 Urine Color YELLOW 08/24/20 19:10 Urine Clarity CLEAR (CLEAR) 08/24/20 19:10 Urine pH 7.0 PH (5.0-7.5) 08/24/20 19:10 Ur Specific [place] 1.020 (1.002-1.030) 08/24/20 19:10 Urine Protein NEGATIVE mg/dL (NEGATIVE) 08/24/20 19:10 Urine Glucose (UA) NEGATIVE mg/dL (NEGATIVE) 08/24/20 19:10 Urine Ketones 15 mg/dL (NEGATIVE) H 08/24/20 19:10 Urine Occult Blood NEGATIVE (NEGATIVE) 08/24/20 19:10 Urine Nitrite NEGATIVE (NEGATIVE) 08/24/20 19:10 Urine Bilirubin NEGATIVE (NEGATIVE) 08/24/20 19:10 Urine Urobilinogen 0.2 (NORMAL) E.U./dL (NORMAL) 08/24/20 19:10 Ur Leukocyte Esterase NEGATIVE (NEGATIVE) 08/24/20 19:10 Urine RBC 0-5 /HPF (0-5) 08/24/20 19:10 Urine WBC 0-3 /HPF (0-5) 08/24/20 19:10 Ur Squamous Epith Cells RARE Squamous (<= Few) 08/24/20 19:10 Amorphous Sediment Few /LPF 08/24/20 19:10 Urine Bacteria None Seen /HPF (None Seen) 08/24/20 19:10 Urine Culture Comments NOT INDICATED 08/24/20 19:10 Coronavirus (PCR) NEGATIVE 08/24/20 19:38 Blood Type O POSITIVE 08/24/20 15:25 Blood Type Recheck O POSITIVE 08/24/20 16:34 Antibody Screen NEGATIVE 08/24/20 15:25 Sepsis Event Note (H) - Evaluation Current Stage of Sepsis: Ruled out ABX Reporting Has patient been on IV antibiotics over the past 48 hours?: No Current Medications - Current Medications Current Medications: Active Medications Acetaminophen (Acetaminophen 325 Mg Tablet) 650 - 975 mg PO Q4HR PRN PRN Reason: PAIN Last Admin: 08/26/20 05:40 Dose: 650 mg Documented by: Albuterol (Albuterol Neb 2.5 Mg/3 Ml) 2.5 mg INH RTQ4H PRN PRN Reason: Wheezing Albuterol/Ipratropium (Ipratropium/Albuterol 3 Ml Neb) 3 ml INH QID PRN PRN Reason: Wheezing Aspirin (Aspirin 325 Mg Tablet) 325 mg PO BIDWM [facility] Last Admin: 08/26/20 08:11 Dose: 325 mg Documented by: Brimonidine Tartrate (Brimonidine 0.2% Ophth Drops 5 Ml) 1 drops LEFTEYE TID [facility] Last Admin: 08/26/20 08:28 Dose: 1 drops Documented by: Diltiazem HCl (Diltiazem Cd 120 Mg Capsule) 120 mg PO BID [facility] Last Admin: 08/26/20 08:11 Dose: 120 mg Documented by: Docusate Sodium (Docusate Sodium 100 Mg Capsule) 100 mg PO BID PRN PRN Reason: Constipation Last Admin: 08/26/20 08:11 Dose: 100 mg Documented by: Ferrous Sulfate (Ferrous Sulfate 325 Mg Tablet) 325 mg PO BIDWM [facility] Ketorolac Tromethamine (Ketorolac 15 Mg/Ml Vial) 15 mg IVP Q6HR PRN PRN Reason: PAIN Stop: 08/29/20 16:00 Last Admin: 08/26/20 08:12 Dose: 15 mg Documented by: Lidocaine (Lidocaine Patch 5%) 1 patch TOP DAILY PRN PRN Reason: PAIN Last Admin: 08/25/20 08:50 Dose: 1 patch Documented by: Ondansetron HCl (Ondansetron 4 Mg/2 Ml Vial) 4 mg IVP Q6HR PRN PRN Reason: Nausea / Vomiting Oxycodone HCl (Oxycodone 5 Mg Tablet) 5 mg PO Q4HR PRN PRN Reason: PAIN Polyethylene Glycol (Polyethylene Glycol 3350 17 Gm Packet) 17 gm PO DAILY [facility] Last Admin: 08/26/20 08:11 Dose: 17 gm Documented by: Saccharomyces Boulardii (Saccharomyces Boulardii 250 Mg Capsule) 250 mg PO BIDWM [facility] Last Admin: 08/26/20 08:11 Dose: 250 mg Documented by: Senna (Senna 8.6 Mg Tablet) 17.2 mg PO Q12H PRN PRN Reason: Constipation Sodium Chloride (Sodium Chloride Flush 0.9% 10 Ml Syringe) 10 ml IVP 0100,0900,1700 [facility] Last Admin: 08/26/20 08:11 Dose: 10 ml Documented by: Sodium Chloride (Sodium Chloride Flush 0.9% 10 Ml Syringe) 10 ml IVP PRN PRN PRN Reason: NEEDED PER PROVIDER ORDERS Aspirin [Children's Aspirin] 81 mg PO DAILY 08/05/18 diltiaZEM CD [Cardizem Cd] 120 mg PO BID 10/28/18 Multivitamin [One-Daily Multi-Vitamin] 1 tab PO DAILY 01/15/19 Brimonidine 0.2% Ophth Drops [Alphagan P 0.2% Ophth Drops] 1 drops LEFTEYE TID 08/24/20
[2020-08-26] MEDS: FERROUS SULFATE 325 MG TABLET PO SCH ×2 (11:57→16:37)
--- NOTE | 2020-08-26 12:01 | PROVIDER PROGRESS NOTE ---
Subjective - Prog Note Date Prog Note Date: 08/26/20 Prog Note Time: 11:59 - Subjective Pt reports feeling: Improved (Mild hip pain) Objective - Vital Signs/Intake & Output Vital Signs: Vital Signs x48h Temp Pulse Resp BP Pulse Ox 08/26/20 08:22 90 18 115/61 98 08/26/20 04:41 36.9 C 83 16 105/52 L 98 Intake & Output: Intake & Output 08/23/20 08/24/20 08/25/20 08/26/20 23:59 23:59 23:59 23:59 Intake Total 290 2811.682 1663.33 Output Total 300 500 475 Balance -10 2311.682 1188.33 - Lab Results Fish Bones: 08/26/20 04:35 08/26/20 04:35 Other Labs: Lab Results x24hrs 08/26/20 08/26/20 08/26/20 Range/Units 04:35 04:35 04:35 WBC (4.8-10.8) x10^3/uL RBC (4.20-5.40) 10^6/uL Hgb (12.0-16.0) g/dL Hct (37.0-47.0) % MCV (81.0-99.0) fL MCH (27.0-31.0) pg MCHC (32.0-36.0) g/dL RDW (12.0-15.0) % Plt Count (130-450) 10^3/uL MPV (7.9-10.8) fL Reticulocyte % (Auto) (0.5-2.3) % Neut # (Auto) Lymph # (Auto) [place] # (Auto) Eos # (Auto) Baso # (Auto) Absolute Nucleated RBC Total Counted Band Neuts % (Manual) (0 - 10) % Abnorm Lymph % (Manual) % Nucleated RBC % Neutrophils # (Manual) (1.5-6.6) 10^3/uL Lymphocytes # (Manual) (1.5-3.5) 10^3/uL Monocytes # (Manual) (0.0-1.0) 10^3/uL Eosinophils # (Manual) (0-0.7) 10^3/uL Basophils # (Manual) (0-0.1) 10^3/uL Differential Comment Platelet Estimate (NORMAL) RBC Morph Micro Appear (NORMAL) Absolute Retic (0.020-0.110) 10^6/uL Sodium (135-145) mmol/L Potassium (3.5-5.0) mmol/L Chloride (101-111) mmol/L Carbon Dioxide (21-32) mmol/L Anion Gap (6-13) BUN (6-20) mg/dL Creatinine (0.4-1.0) mg/dL Estimated GFR (MDRD) (>89) Glucose (70-100) mg/dL Calcium (8.5-10.3) mg/dL Iron 7 L (28-170) ug/dL TIBC 255 (250-450) ug/dL % Saturation 3 L (20-50) % Transferrin 182 L (192-382) mg/dL Ferritin 50.2 (11.0-306.8) ng/mL Lactate Dehydrogenase 126 (91-225) IU/L Vitamin B12 383 (180-914) pg/mL Coronavirus (PCR) 08/26/20 08/26/20 08/26/20 Range/Units 04:35 04:35 04:35 WBC 14.8 H (4.8-10.8) x10^3/uL RBC 3.19 L 3.23 L (4.20-5.40) 10^6/uL Hgb 8.1 L (12.0-16.0) g/dL Hct 27.6 L (37.0-47.0) % MCV 85.4 (81.0-99.0) fL MCH 25.1 L (27.0-31.0) pg MCHC 29.3 L (32.0-36.0) g/dL RDW 13.7 (12.0-15.0) % Plt Count 295 (130-450) 10^3/uL MPV 8.3 (7.9-10.8) fL Reticulocyte % (Auto) 1.18 (0.5-2.3) % Neut # (Auto) Not Reportable Lymph # (Auto) Not Reportable [place] # (Auto) Not Reportable Eos # (Auto) Not Reportable Baso # (Auto) Not Reportable Absolute Nucleated RBC Not Reportable Total Counted 100 Band Neuts % (Manual) 2 (0 - 10) % Abnorm Lymph % (Manual) 0 % Nucleated RBC % Not Reportable Neutrophils # (Manual) 11.4 H (1.5-6.6) 10^3/uL Lymphocytes # (Manual) 2.4 (1.5-3.5) 10^3/uL Monocytes # (Manual) 1.0 (0.0-1.0) 10^3/uL Eosinophils # (Manual) 0.0 (0-0.7) 10^3/uL Basophils # (Manual) 0.0 (0-0.1) 10^3/uL Differential Comment MANUAL DIFFERENTIAL Platelet Estimate NORMAL (130-450,000) (NORMAL) RBC Morph Micro Appear NORMAL APPEARANCE (NORMAL) Absolute Retic 0.038 (0.020-0.110) 10^6/uL Sodium 140 (135-145) mmol/L Potassium 3.4 L (3.5-5.0) mmol/L Chloride 108 (101-111) mmol/L Carbon Dioxide 23 (21-32) mmol/L Anion Gap 9.0 (6-13) BUN 11 (6-20) mg/dL Creatinine 0.5 (0.4-1.0) mg/dL Estimated GFR (MDRD) 120 (>89) Glucose 99 (70-100) mg/dL Calcium 8.0 L (8.5-10.3) mg/dL Iron (28-170) ug/dL TIBC (250-450) ug/dL % Saturation (20-50) % Transferrin (192-382) mg/dL Ferritin (11.0-306.8) ng/mL Lactate Dehydrogenase (91-225) IU/L Vitamin B12 (180-914) pg/mL Coronavirus (PCR) 08/24/20 Range/Units 19:38 WBC (4.8-10.8) x10^3/uL RBC (4.20-5.40) 10^6/uL Hgb (12.0-16.0) g/dL Hct (37.0-47.0) % MCV (81.0-99.0) fL MCH (27.0-31.0) pg MCHC (32.0-36.0) g/dL RDW (12.0-15.0) % Plt Count (130-450) 10^3/uL MPV (7.9-10.8) fL Reticulocyte % (Auto) (0.5-2.3) % Neut # (Auto) Lymph # (Auto) [place] # (Auto) Eos # (Auto) Baso # (Auto) Absolute Nucleated RBC Total Counted Band Neuts % (Manual) (0 - 10) % Abnorm Lymph % (Manual) % Nucleated RBC % Neutrophils # (Manual) (1.5-6.6) 10^3/uL Lymphocytes # (Manual) (1.5-3.5) 10^3/uL Monocytes # (Manual) (0.0-1.0) 10^3/uL Eosinophils # (Manual) (0-0.7) 10^3/uL Basophils # (Manual) (0-0.1) 10^3/uL Differential Comment Platelet Estimate (NORMAL) RBC Morph Micro Appear (NORMAL) Absolute Retic (0.020-0.110) 10^6/uL Sodium (135-145) mmol/L Potassium (3.5-5.0) mmol/L Chloride (101-111) mmol/L Carbon Dioxide (21-32) mmol/L Anion Gap (6-13) BUN (6-20) mg/dL Creatinine (0.4-1.0) mg/dL Estimated GFR (MDRD) (>89) Glucose (70-100) mg/dL Calcium (8.5-10.3) mg/dL Iron (28-170) ug/dL TIBC (250-450) ug/dL % Saturation (20-50) % Transferrin (192-382) mg/dL Ferritin (11.0-306.8) ng/mL Lactate Dehydrogenase (91-225) IU/L Vitamin B12 (180-914) pg/mL Coronavirus (PCR) NEGATIVE - Other Results/Comments Other Results/Comments: Exam: Dressing intact. Mild pain with hip rotation. Moves toes well. Sensation intact. Up in chair with PT. Sepsis Event Note (H) - Evaluation Current Stage of Sepsis: Ruled out Assessment/Plan - Problem List (1) Closed right hip fracture Impression: Satis post op PLAN: Mobilize as tolerated. Qualifiers: Encounter type: initial encounter Qualified Code(s): S72.001A - Fracture of unspecified part of neck of right femur, initial encounter for closed fracture
[2020-08-26 13:57] LABS: HCT - HEMATOCRIT 27.9 % (37.0-47.0); HGB - HEMOGLOBIN 8.5 g/dL (12.0-16.0)
--- NOTE | 2020-08-26 14:07 | OPERATIVE REPORT ---
Operative Report - General Admit Date: 08/24/20 - Other Other Information/Narrative: Preoperative diagnosis: Displaced rSelect rightight hip fracture Postoperative diagnosis: Same Operation performed: Short InterTAN nailing of [] hip fracture Surgeon: Max Bob MD Anesthesia: General Preoperative diagnosis: Displaced right hip fracture Postoperative diagnosis: Same Operation performed: Short InterTAN nailing of right hip fracture Surgeon: Max Bob MD Anesthesia: General Preoperative diagnosis: Displaced [] hip fracture Postoperative diagnosis: Same Operation performed: Short InterTAN nailing of [] hip fracture Surgeon: Max Bob MD Anesthesia: GeneralNext field right
[2020-08-26 22:08] LABS: HCT - HEMATOCRIT 28.7 % (37.0-47.0); HGB - HEMOGLOBIN 8.7 g/dL (12.0-16.0)
[2020-08-27 04:59] LABS: BASOPHILS % (AUTO) 0.4 %; EOSINOPHILS % (AUTO) 2.3 %; HCT - HEMATOCRIT 27.2 % (37.0-47.0); LYMPHOCYTES % (AUTO) 14.3 %; MEAN CORPUSCULAR HGB CONC 29.4 g/dL (32.0-36.0); MEAN PLATELET VOLUME 8.2 fL (7.9-10.8); MONOCYTES % (AUTO) 15.3 %; NEUTROPHILS % (AUTO) 67.1 %; PLT - PLATELET COUNT 301 10^3/uL (130-450); RED CELL DISTRIBUTION WIDTH 13.9 % (12.0-15.0); WHITE BLOOD COUNT 14.1 x10^3/uL (4.8-10.8)
[2020-08-27 05:03] LABS: ABNORMAL LYMPHS % (MANUAL) 0 %; BAND NEUTROPHILS % (MANUAL) 0 %
[2020-08-27] MEDS: ACETAMINOPHEN 325 MG TABLET PO PRN ×2 (05:03→10:56)
[2020-08-27] MEDS: KETOROLAC 15 MG/ML VIAL IVP PRN (05:03)
[2020-08-27] MEDS: BRIMONIDINE 0.2% OPHTH DROPS 5 ML LEFTEYE SCH ×2 (05:04→14:15)
[2020-08-27 05:08] LABS: CALCIUM 8.4 mg/dL (8.5-10.3); CREATININE 0.6 mg/dL (0.4-1.0)
[2020-08-27 05:20] LABS: DIFFERENTIAL COMMENT MANUAL DIFFERENTIAL; EOSINOPHILS # (MANUAL) 0.1 10^3/uL (0-0.7); LYMPHOCYTES # (MANUAL) 1.8 10^3/uL (1.5-3.5); LYMPHOCYTES % (MANUAL) 13 %; MONOCYTES # (MANUAL) 2.3 10^3/uL (0.0-1.0); NEUTROPHILS # (MANUAL) 9.9 10^3/uL (1.5-6.6); PLATELET ESTIMATE, MANUAL NORMAL (130-450,000) (NORMAL); PLATELET MORPHOLOGY NORMAL APPEARANCE (NORMAL); RBC MORPHOLOGY (MULTIPLE) NORMAL APPEARANCE (NORMAL); WBC MORPHOLOGY (MULTIPLE) NORMAL APPEARANCE (NORMAL)
[2020-08-27] MEDS: SACCHAROMYCES BOULARDII 250 MG CAPSULE PO SCH (07:51)
[2020-08-27] MEDS: ASPIRIN 325 MG TABLET PO SCH (07:51)
[2020-08-27] MEDS: FERROUS SULFATE 325 MG TABLET PO SCH (07:51)
[2020-08-27] MEDS: polyethylene glycoL 3350 17 GM PACKET PO SCH (07:51)
[2020-08-27] MEDS: diltiaZEM CD 120 MG CAPSULE PO SCH (07:51)
[2020-08-27] MEDS: SODIUM CHLORIDE FLUSH 0.9% 10 ML SYRINGE IVP SCH (07:55)
[2020-08-27 11:57] LABS: HCT - HEMATOCRIT 28.3 % (37.0-47.0); HGB - HEMOGLOBIN 8.7 g/dL (12.0-16.0)
[2020-08-27] MEDS ORDERED: CALCIUM CARBONATE CHEW 500 MG TABLET PO SCH (12:00)
[2020-08-27] MEDS ORDERED: CHOLECALCIFEROL 25 MCG TABLET PO SCH (12:00)
[2020-08-27 12:17] VITALS: BP 112/54
[2020-08-27 12:39] LABS: B. PARAPERTUSSIS- RESP PCR PAN NOT DETECTED; B. PERTUSSIS- RESP PCR PANEL NOT DETECTED; C. PNEUMONIAE- RESP PCR PANEL NOT DETECTED; CORONAVIRUS 229E-RESP PCR NOT DETECTED; CORONAVIRUS HKU1-RESP PCR NOT DETECTED; CORONAVIRUS NL63-RESP PCR NOT DETECTED; CORONAVIRUS OC43-RESP PCR NOT DETECTED; HUMAN METAPNEUMOVIRUS NOT DETECTED; INFLUENZA A- RESP PCR PANEL NOT DETECTED; INFLUENZA B - RESP PCR PANEL NOT DETECTED; M. PNEUMONIAE- RESP PCR PANEL NOT DETECTED; PARAINFLUENZA VIRUS 1 NOT DETECTED; PARAINFLUENZA VIRUS 2 NOT DETECTED; PARAINFLUENZA VIRUS 3 NOT DETECTED; PARAINFLUENZA VIRUS 4 NOT DETECTED; RHINOVIRUS/ENTEROVIRUS NOT DETECTED; RSV- RESP PCR PANEL NOT DETECTED; SARS-CoV-2 -RESP PCR PANEL NOT DETECTED
--- NOTE | 2020-08-27 13:25 | Discharge Plan ---
"Discharge Plan for SNF / [facility] - Discharge Plan And Transition Orders Problem Reviewed?: Yes Disposition: 03 SNF DC/Xfer Condition: Stable Allergies and Adverse Reactions: Allergies Allergy/AdvReac Type Severity Reaction Status Date / Time cephalexin [From Keflex] Allergy Intermediate Rash Verified 08/25/20 13:18 codeine Allergy Intermediate hyperactivi Verified 08/25/20 13:18 ty hydrocodone Allergy Intermediate Rash Verified 08/25/20 13:18 hydromorphone [From Dilaudid] Allergy Intermediate Rash Verified 08/25/20 13:18 oxycodone [From Percocet] Allergy Intermediate Rash Verified 08/25/20 13:18 Sulfa (Sulfonamide Allergy Intermediate Rash Verified 08/25/20 13:19 Antibiotics) Health Concerns: s/p of right hip repair Plan of Treatment: pt may continue PT/OT, continue pain control, use Aspirin for DVT Prophylaxis, followup with orthopedics office in 2 weeks or early as needed, recheck HGB in one week Care Goals: stabilization and resolve/improvement of pt's hip injury Assessment: discussed with pt about the care plan, answered her questions and she understood. - SNF / [facility] Transition Orders Admit to (Facility): [facility] Under the care of (Name): Dr. Mich Matthews Discharge Diagnosis: s/p of right hip repair, anemia, atrial flutter, parkinson disease, dementia, HTN Medicare Certification Statement: I certify that [facility] shelter care is medically necessary on a continuing basis for any of the conditions for which she/he is receiving care during hospitalization. Notify PCP of admission and forward orders to primary provider for signature. Weight on admission and: Daily Call PCP immediately if weight increases by: 2 kg Other Notification Orders: Call PCP immediately if patient develops dyspnea, chest pain/tightness or edema. House Bowel Program: Yes Additional Bowel Program Orders: If no BM after 2 days, nurse may give M.O.M. 30ml PO PRN and/or ducolax Supp 1 LA and/or ERIN 250mg P.O., and/or senna 1-2 tabs PO. On day 3 nurse may give repeat above order until residents constipation is resolved. Annual Influenza Vaccine (between Dec 15 and July 14): Yes Two-step PPD per [facility] [phone] or approved exception documents: Yes Treatments & Other Orders: pt may continue PT/OT, continue pain control, use Aspirin for DVT Prophylaxis, followup with orthopedics office in 2 weeks or early as needed, recheck HGB in one week Medication Orders: PLEASE REFER TO THE DISCHARGE MEDICATION LIST. Insulin Orders?: No - Medications New Prescriptions: oxyCODONE [Roxicodone] 5 mg PO Q4HR PRN #15 tablet PRN Reason: Pain Aspirin [Olive] 325 mg PO BIDWM #28 tablet Docusate Sodium 100Mg Capsule [Colace 100Mg Capsule] 100 mg PO BID PRN #10 cap PRN Reason: Constipation Ferrous Sulfate [Feosol] 325 mg PO DAILY #30 tablet Calcium Carbonate [Tums (Calcium Carbonate 500mg)] 500 mg PO DAILY #30 tablet Cholecalciferol [Vitamin D3] 50 mcg PO DAILY #30 tablet - Diet Type: Geriatric Texture: Dysphagia mech Liquids: Thin May have monthly special meal: Yes - Therapies | Activity Therapy: Evaluation | Treat if indicated: PT, OT Rehabilitation Potential: Maximize functional status Activity: Activity as Tolerated"
--- NOTE | 2020-08-27 13:39 | PROVIDER PROGRESS NOTE ---
Subjective - Prog Note Date Prog Note Date: 08/27/20 Prog Note Time: 13:37 - Subjective Pt reports feeling: Improved (Less pain. Up in PT) Objective - Vital Signs/Intake & Output Vital Signs: Vital Signs x48h Temp Pulse Pulse Resp BP Pulse Ox 08/27/20 10:55 93 16 112/54 L 98 08/27/20 10:30 36.5 C 94 17 95 08/27/20 09:30 87 20 08/27/20 07:39 36.5 C 94 17 115/57 L 97 Intake & Output: Intake & Output 08/24/20 08/25/20 08/26/20 08/27/20 23:59 23:59 23:59 23:59 Intake Total 290 2811.682 2493.33 996 Output Total 300 500 875 751 Balance -10 2311.682 1618.33 245 - Lab Results Fish Bones: 08/27/20 11:51 08/27/20 04:45 Other Labs: Lab Results x24hrs 08/27/20 08/27/20 08/27/20 Range/Units 11:51 11:40 04:45 WBC (4.8-10.8) x10^3/uL RBC (4.20-5.40) 10^6/uL Hgb 8.7 L (12.0-16.0) g/dL Hct 28.3 L (37.0-47.0) % MCV (81.0-99.0) fL MCH (27.0-31.0) pg MCHC (32.0-36.0) g/dL RDW (12.0-15.0) % Plt Count (130-450) 10^3/uL MPV (7.9-10.8) fL Neut # (Auto) Lymph # (Auto) [place] # (Auto) Eos # (Auto) Baso # (Auto) Absolute Nucleated RBC Total Counted Band Neuts % (Manual) (0 - 10) % Abnorm Lymph % (Manual) % Nucleated RBC % Neutrophils # (Manual) (1.5-6.6) 10^3/uL Lymphocytes # (Manual) (1.5-3.5) 10^3/uL Monocytes # (Manual) (0.0-1.0) 10^3/uL Eosinophils # (Manual) (0-0.7) 10^3/uL Basophils # (Manual) (0-0.1) 10^3/uL Differential Comment WBC Morphology (NORMAL) Platelet Estimate (NORMAL) Platelet Morphology (NORMAL) RBC Morph Micro Appear (NORMAL) Sodium 139 (135-145) mmol/L Potassium 4.0 (3.5-5.0) mmol/L Chloride 107 (101-111) mmol/L Carbon Dioxide 24 (21-32) mmol/L Anion Gap 8.0 (6-13) BUN 10 (6-20) mg/dL Creatinine 0.6 (0.4-1.0) mg/dL Estimated GFR (MDRD) 97 (>89) Glucose 105 H (70-100) mg/dL Calcium 8.4 L (8.5-10.3) mg/dL Nasal Adenovirus (PCR) NOT DETECTED Nasal B. parapertussis DNA (PCR) NOT DETECTED Nasal Coronavir 229E PCR NOT DETECTED Nasal Coronavir HKU1 PCR NOT DETECTED Nasal Coronavir NL63 PCR NOT DETECTED Nasal Coronavir OC43 PCR NOT DETECTED Nasal Enterovir/Rhinovir PCR NOT DETECTED Nasal Influenza B PCR NOT DETECTED Nasal Influenza A PCR NOT DETECTED Nasal Parainfluen 1 PCR NOT DETECTED Nasal Parainfluen 2 PCR NOT DETECTED Nasal Parainfluen 3 PCR NOT DETECTED Nasal Parainfluen 4 PCR NOT DETECTED Nasal RSV (PCR) NOT DETECTED Nasal B.pertussis DNA PCR NOT DETECTED Nasal C.pneumoniae (PCR) NOT DETECTED [place] Human Metapneumo PCR NOT DETECTED Nasal M.pneumoniae (PCR) NOT DETECTED Nasal SARS-CoV-2 (PCR) NOT DETECTED 08/27/20 08/26/20 08/26/20 Range/Units 04:45 22:03 13:50 WBC 14.1 H (4.8-10.8) x10^3/uL RBC 3.20 L (4.20-5.40) 10^6/uL Hgb 8.0 L 8.7 L 8.5 L (12.0-16.0) g/dL Hct 27.2 L 28.7 L 27.9 L (37.0-47.0) % MCV 85.0 (81.0-99.0) fL MCH 25.0 L (27.0-31.0) pg MCHC 29.4 L (32.0-36.0) g/dL RDW 13.9 (12.0-15.0) % Plt Count 301 (130-450) 10^3/uL MPV 8.2 (7.9-10.8) fL Neut # (Auto) Not Reportable Lymph # (Auto) Not Reportable [place] # (Auto) Not Reportable Eos # (Auto) Not Reportable Baso # (Auto) Not Reportable Absolute Nucleated RBC Not Reportable Total Counted 100 Band Neuts % (Manual) 0 (0 - 10) % Abnorm Lymph % (Manual) 0 % Nucleated RBC % Not Reportable Neutrophils # (Manual) 9.9 H (1.5-6.6) 10^3/uL Lymphocytes # (Manual) 1.8 (1.5-3.5) 10^3/uL Monocytes # (Manual) 2.3 H (0.0-1.0) 10^3/uL Eosinophils # (Manual) 0.1 (0-0.7) 10^3/uL Basophils # (Manual) 0.0 (0-0.1) 10^3/uL Differential Comment MANUAL DIFFERENTIAL WBC Morphology NORMAL APPEARANCE (NORMAL) Platelet Estimate NORMAL (130-450,000) (NORMAL) Platelet Morphology NORMAL APPEARANCE (NORMAL) RBC Morph Micro Appear NORMAL APPEARANCE (NORMAL) Sodium (135-145) mmol/L Potassium (3.5-5.0) mmol/L Chloride (101-111) mmol/L Carbon Dioxide (21-32) mmol/L Anion Gap (6-13) BUN (6-20) mg/dL Creatinine (0.4-1.0) mg/dL Estimated GFR (MDRD) (>89) Glucose (70-100) mg/dL Calcium (8.5-10.3) mg/dL Nasal Adenovirus (PCR) Nasal B. parapertussis DNA (PCR) Nasal Coronavir 229E PCR Nasal Coronavir HKU1 PCR Nasal Coronavir NL63 PCR Nasal Coronavir OC43 PCR Nasal Enterovir/Rhinovir PCR Nasal Influenza B PCR Nasal Influenza A PCR Nasal Parainfluen 1 PCR Nasal Parainfluen 2 PCR Nasal Parainfluen 3 PCR Nasal Parainfluen 4 PCR Nasal RSV (PCR) Nasal B.pertussis DNA PCR Nasal C.pneumoniae (PCR) [place] Human Metapneumo PCR Nasal M.pneumoniae (PCR) Nasal SARS-CoV-2 (PCR) - Other Results/Comments Other Results/Comments: EXAM: Dressing intact. Mild hip pain with motion. N/V ok distally Sepsis Event Note (H) - Evaluation Current Stage of Sepsis: Ruled out Assessment/Plan - Problem List (1) Closed right hip fracture Impression: Satis post op PLAN: To SNF this weekend. Continue PT: walker ambulate- WBAT on right. THR precautions. Aspirin for DVT prophylaxis x 2 weeks. Follow up in orthopedic clinic in 2 weeks for andrew out and XR. Qualifiers: Encounter type: initial encounter Qualified Code(s): S72.001A - Fracture of unspecified part of neck of right femur, initial encounter for closed fracture
--- NOTE | 2020-08-27 13:58 | DISCHARGE SUMMARY ---
"Discharge Summary Admit Date: 08/24/20 Discharge Date: 08/27/20 Discharging Provider: Jack Ruiz Primary Care Provider: Dr. Judith Goncalves Condition at Discharge: Stable Discharge Disposition: SNF DC/Xfer Discharge Facility [facility]: [facility] - DIAGNOSES Discharge Diagnoses with Status of Each Condition: (1) Closed right hip fracture Orthopedic surgeon repaired patient's right hip fracture. Patient did very well s/p of patient's hip repair. Dr. Bob verbally recommend to me pt can be d/c to SNF on today. PT/OT Recommend patient can be discharged on today as well. Patient is discharged to [facility] today. pt may continue PT/OT, continue pain control, use Aspirin for DVT Prophylaxis, followup with orthopedics office in 2 weeks or early as needed, recheck HGB in one week (2)anemia Pt's HGB is stable. pt had significantly iron deficiency anemia Plus acute blood loss from surgery. pt is prescribed iron pill, and Recheck hemoglobin in 1 week. (3) Atrial flutter Stable, resume home Cardizem (4) Parkinson disease Stable (5) Dementia stable As patient's baseline (6) High blood pressure stable. - HPI History of Present Illness: his is a 75-years old female with a past medical history significant for Dementia, hypertension, atrial flutter, asthma, Parkinson's, chronic constipation, breast cancer, chronic pain, Who present to ER for evaluation of her fall. Pt's is at the pt's bedside. pt's speaking is very soft and difficult to hear what she says. pt's report it was due to her parkinson's disease. 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 pt report she fell getting out of the truck today and fell onto concrete. she denies loss of Consciousness. pt's also believed she may have fallen due to her complaining of right leg pain. Pt is ambulatory with assistance. Pt was not on blood thinners. But it is unsure if pt struck her hea d. pt's report pt had no other cardiac hx except she had atrial flutter. pt has no OH, CHF or CAD in the past. Denies chest pain, shortness breathing. CT of head and neck was unremarkable for acute findings. Large lung volumes, suspect COPD, and no focal pneumonia was shown on chest x-ray. Right hip x-ray shows subcapital femoral neck fracture. Routine laboratory tests show significant elevated WBC at 27. Urinalysis is pending. ER provider already Discussed the case with orthopedics surgeon. Given above medical conditons, Medical team was consulted for admission of this patient. Patient clearly state to me and her she wants have surgery, she also clearly stated to me and her she wanted DNR. - CONSULTS | PROCEDURES Consultations: Dr. Bob Procedures: Cementless right hip biplolar hip gee-arthroplasty - HOSPITAL COURSE Hospital Course: Patient was admitted for evaluation of fall. Patient was found to have right hip fracture. surgeon was consulted and did repair for patient's right hip. After the procedure, patient did very well. Patient had PT and OT evaluation and treatment. Found to have anemia which could have caused by patient had a severe iron deficiency and acute blood loss from operation. Patient's hemoglobin becomes stable. Patient is prescribed iron pill, Follow-up monitor hemoglobin in 1 week. - ALLERGIES Allergies/Adverse Reactions: Allergies Allergy/AdvReac Type Severity Reaction Status Date / Time cephalexin [From Keflex] Allergy Intermediate Rash Verified 08/25/20 13:18 codeine Allergy Intermediate hyperactivi Verified 08/25/20 13:18 ty hydrocodone Allergy Intermediate Rash Verified 08/25/20 13:18 hydromorphone [From Dilaudid] Allergy Intermediate Rash Verified 08/25/20 13:18 oxycodone [From Percocet] Allergy Intermediate Rash Verified 08/25/20 13:18 Sulfa (Sulfonamide Allergy Intermediate Rash Verified 08/25/20 13:19 Antibiotics) - MEDICATIONS Home Medications: Ambulatory Orders Medication Instructions Recorded Confirmed diltiaZEM CD [Cardizem Cd] 120 mg PO BID 10/28/18 08/24/20 Multivitamin [One-Daily 1 tab PO DAILY 01/15/19 08/25/20 Multi-Vitamin] Calcitonin [Fortical] 1 sprays CYNDI DAILY #1 bot 06/19/20 08/24/20 Lidocaine Patch 5% [Lidoderm Patch] 1 patch TOP DAILY PRN #10 patch 06/19/20 08/25/20 Brimonidine 0.2% Ophth Drops 1 drops LEFTEYE TID 08/24/20 08/25/20 [Alphagan P 0.2% Ophth Drops] Aspirin [Olive] 325 mg PO BIDWM #28 tablet 08/27/20 Calcium Carbonate [Tums (Calcium 500 mg PO DAILY #30 tablet 08/27/20 Carbonate 500mg)] Cholecalciferol [Vitamin D3] 50 mcg PO DAILY #30 tablet 08/27/20 Docusate Sodium 100Mg Capsule 100 mg PO BID PRN #10 cap 08/27/20 [Colace 100Mg Capsule] Ferrous Sulfate [Feosol] 325 mg PO DAILY #30 tablet 08/27/20 oxyCODONE [Roxicodone] 5 mg PO Q4HR PRN #15 tablet 08/27/20 - PHYSICAL EXAM AT DISCHARGE General Appearance: positive: No acute distress, Alert. negative: Lethargic Eyes Bilateral: positive: Normal inspection, PERRL, No lid inflammation ENT: positive: ENT inspection nml, No signs of dehydration. negative: Purulent nasal drainage Neck: positive: Nml inspection, Trachea midline. negative: Thyromegaly, Tracheal deviation Respiratory: positive: Chest non-tender, No respiratory distress. negative: Wheezes, Rales, Rhonchi Cardiovascular: positive: Regular rate & rhythm, No murmur. negative: Tachycardia, Bradycardia, Systolic murmur, Diastolic murmur Peripheral Pulses: positive: 2+ Abdomen: positive: Non-tender, Nml bowel sounds, No distention. negative: Tenderness Back: positive: Nml inspection Skin: positive: Color nml, Warm, Dry. negative: Cyanosis Extremities: positive: Non-tender, Nml appearance. negative: Pedal edema, Calf tenderness Neurologic/Psychiatric: positive: Oriented x3, Sensation nml, Mood/affect nml. negative: Sensory loss, Facial droop, Slurred/abnml speech, Depressed mood/affect - LABS Result Diagrams: 08/27/20 11:51 08/27/20 04:45 - SEPSIS Current Stage of Sepsis: Ruled out - FOLLOW UP Follow Up: pt may continue PT/OT, walker ambulate- WBAT on right. THR precautions, continue pain control, use Aspirin for DVT Prophylaxis, followup with orthopedics office in 2 weeks or early as needed, recheck HGB in one week - TIME SPENT Time Spent in Discharge (Minutes): 30"
== END 2020-08-27 15:33 | DRG 522 ==
LOC: EDUNIT# → ED 14:38 → MS2 15:55
PROVIDERS: ADMIT Nurse Practitioner Gerontology; ATTEND Nurse Practitioner Gerontology
PROC: 0SRR01A Replacement of Right Hip Joint, Femoral Surface with Metal Synthetic Substitute, Uncemented, Open Approach (ICD-10-PCS; principal; 2020-08-24)
DX: S72.011A Unspecified intracapsular fracture of right femur, initial encounter for closed fracture (principal); I48.92 Unspecified atrial flutter; D62 Acute posthemorrhagic anemia; Z68.1 Body mass index [BMI] 19.9 or less, adult; Y92.009 Unspecified place in unspecified non-institutional (private) residence as the place of occurrence of the external cause; V48.4XXA Person boarding or alighting a car injured in noncollision transport accident, initial encounter; G20 Parkinson's disease; F02.80 Dementia in other diseases classified elsewhere, unspecified severity, without behavioral disturbance, psychotic disturbance, mood disturbance, and anxiety; I10 Essential (primary) hypertension; K59.09 Other constipation; J45.909 Unspecified asthma, uncomplicated; G89.29 Other chronic pain; M54.9 Dorsalgia, unspecified; R32 Unspecified urinary incontinence; R63.6 Underweight; Z66 Do not resuscitate; Z20.822 Contact with and (suspected) exposure to COVID-19; Z79.82 Long term (current) use of aspirin; Z79.51 Long term (current) use of inhaled steroids; Z79.899 Other long term (current) drug therapy
CPT/HCPCS: 36415; 70450; 71045; 72125; 72170; 73502; 73562; 80048; 80053; 81001; 82607; 82728; 83540; 83615; 83690; 84466; 85014; 85018; 85025; 85045; 85610; 86850; 86900; 86901; 87631; 93005; 97110; 97162; 97165; 97530; 99285; A9270; J7120; U0004; 0202U; 87086

== ENCOUNTER 2020-08-27 15:35 | Outpatient (CLI) | payer MEDICARE, BC | END 2020-08-27 15:36 | LOC: EMS 15:35 | PROVIDERS: ATTEND Nurse Practitioner Gerontology | DX: Z74.01 Bed confinement status (principal) | CPT/HCPCS: A0425; A0428 ==

== ENCOUNTER 2020-09-16 17:08 | Outpatient (CLI) | payer MEDICARE, BC ==
--- NOTE | 2020-09-16 17:59 | XRAY Report ---
PROCEDURE: Hip w/Pelvis 1V RT INDICATIONS: POST OP CARE, R HIP PX TECHNIQUE: AP pelvis with lateral view(s) of the bilateral hip(s). COMPARISON: None. FINDINGS: Bones: Postsurgical changes compatible with unipolar right hip arthroplasty. Orthopedic hardware comp onents are in expected position. Soft tissues: The visualized bowel gas pattern is normal. No suspicious soft tissue calcifications. IMPRESSION: Expected postsurgical change for right hip arthroplasty. Reviewed by: Ligia Pena MD, PhD on 09/16/2020 5:58 PM PDT Approved by: Ligia Pena MD, PhD on 09/16/2020 5:58 PM PDT Station ID: [id number]
== END 2020-09-16 23:59 | disposition home or self-care (01) ==
LOC: DI.N 17:08
PROVIDERS: ATTEND Orthopaedic Surgery
DX: M25.551 Pain in right hip (principal); Z48.89 Encounter for other specified surgical aftercare; Z96.641 Presence of right artificial hip joint

== ENCOUNTER 2020-09-18 07:00 | Outpatient (CLI) | payer MEDICARE, BC ==
[2020-09-18 20:34] LABS: BILIRUBIN,URINE NEGATIVE (NEGATIVE); GLUCOSE, URINE (UA) NEGATIVE (NEGATIVE); KETONES,URINE (UA) NEGATIVE (NEGATIVE); LEUKOCYTE ESTERASE, URINE LARGE (NEGATIVE); NITRITE,URINE NEGATIVE (NEGATIVE); OCCULT BLOOD,URINE TRACE-INTA (NEGATIVE); PH,URINE 7.5 PH (5.0-7.5); PROTEIN,URINE TRACE mg/dL (NEGATIVE); UROBILINOGEN,URINE 0.2 (NORMAL) E.U./dL (NORMAL)
[2020-09-18 20:37] LABS: CLARITY,URINE CLEAR (CLEAR)
[2020-09-18 20:38] LABS: BACTERIA,URINE Few /HPF (None Seen); RBC,URINE 0-5 /HPF (0-5); SQUAMOUS EPITHELIAL CELL,UR RARE Squamous (<= Few)
== END 2020-09-18 23:59 | disposition home or self-care (01) ==
LOC: LAB.R 07:00
DX: N39.0 Urinary tract infection, site not specified (principal)
CPT/HCPCS: 81001; 81003

== ENCOUNTER 2020-10-08 14:15 | Outpatient (CLI) | payer MEDICARE, BC ==
[2020-10-08 16:06] LABS: BASOPHILS % (AUTO) 0.5 %; EOSINOPHILS % (AUTO) 1.8 %; HCT - HEMATOCRIT 31.7 % (37.0-47.0); HGB - HEMOGLOBIN 9.1 g/dL (12.0-16.0); LYMPHOCYTES % (AUTO) 17.9 %; MEAN CORPUSCULAR HEMOGLOBIN 23.8 pg (27.0-31.0); MEAN CORPUSCULAR HGB CONC 28.7 g/dL (32.0-36.0); MEAN CORPUSCULAR VOLUME 82.8 fL (81.0-99.0); MEAN PLATELET VOLUME 8.7 fL (7.9-10.8); MONOCYTES % (AUTO) 16.6 %; NEUTROPHILS % (AUTO) 62.9 %; PLT - PLATELET COUNT 587 10^3/uL (130-450); RED BLOOD COUNT 3.83 10^6/uL (4.20-5.40); RED CELL DISTRIBUTION WIDTH 13.7 % (12.0-15.0); WHITE BLOOD COUNT 12.5 x10^3/uL (4.8-10.8)
[2020-10-08 16:09] LABS: ABNORMAL LYMPHS % (MANUAL) 0 %; BAND NEUTROPHILS % (MANUAL) 0 %; CREATININE 0.5 mg/dL (0.4-1.0)
[2020-10-08 16:52] LABS: EOSINOPHILS # (MANUAL) 0.4 10^3/uL (0-0.7); LYMPHOCYTES % (MANUAL) 16 %; MONOCYTES # (MANUAL) 1.5 10^3/uL (0.0-1.0); NEUTROPHILS # (MANUAL) 8.6 10^3/uL (1.5-6.6); RBC MORPHOLOGY (MULTIPLE) NORMAL APPEARANCE (NORMAL)
[2020-10-08 16:53] LABS: DIFFERENTIAL COMMENT MANUAL DIFFERENTIAL; PLATELET ESTIMATE, MANUAL INCREASED (>450,000) (NORMAL); PLATELET MORPHOLOGY NORMAL APPEARANCE (NORMAL); WBC MORPHOLOGY (MULTIPLE) NORMAL APPEARANCE (NORMAL)
== END 2020-10-08 23:59 | disposition home or self-care (01) ==
LOC: LAB.R 14:15
PROVIDERS: ATTEND Family Medicine
DX: D50.0 Iron deficiency anemia secondary to blood loss (chronic) (principal); I10 Essential (primary) hypertension
CPT/HCPCS: 80048; 85025

== ENCOUNTER 2020-11-08 12:11 | Outpatient (CLI) | payer MEDICARE, BC | END 2020-11-08 23:59 | disposition critical access hospital (66) | LOC: EMS 12:11 | DX: S09.90XA Unspecified injury of head, initial encounter (principal); W18.39XA Other fall on same level, initial encounter; Y93.89 Activity, other specified; Y92.192 Bathroom in other specified residential institution as the place of occurrence of the external cause; R42 Dizziness and giddiness | CPT/HCPCS: A0425; A0427 ==

== ENCOUNTER 2020-11-08 12:16 | Emergency (ER) | payer MEDICARE, BC ==
--- NOTE | 2020-11-08 12:24 | ED Physician Documentation ---
PD HPI Fall - Stated complaint Stated Complaint: GLF - History obtained from History obtained from: Patient (75-year-old resident of [facility] with Parkinson's had a mechanical fall today hitting the back of her head. She has no complaints. No loss of consciousness. She is not anticoagulated.) Review of Systems Ten Systems: 10 systems reviewed and negative Constitutional: reports: Reviewed and negative Ears: reports: Reviewed and negative Nose: reports: Reviewed and negative PD PAST MEDICAL HISTORY - Past Medical History Cardiovascular: Hypertension, Atrial flutter Respiratory: Asthma Neuro: Dementia, Parkinson's Endocrine/Autoimmune: None GI: Chronic constipation [employer]: Breast cancer : Incontinence Psych: None Musculoskeletal: Chronic back pain Derm: None - Past Surgical History Past Surgical History: Yes /[employer]: Mastectomy - Present Medications Home Medications: Ambulatory Orders Medication Instructions Recorded Confirmed diltiaZEM CD [Cardizem Cd] 120 mg PO BID 10/28/18 08/24/20 Multivitamin [One-Daily 1 tab PO DAILY 01/15/19 08/25/20 Multi-Vitamin] Calcitonin [Fortical] 1 sprays CYNDI DAILY #1 bot 06/19/20 08/24/20 Lidocaine Patch 5% [Lidoderm Patch] 1 patch TOP DAILY PRN #10 patch 06/19/20 08/25/20 Brimonidine 0.2% Ophth Drops 1 drops LEFTEYE TID 08/24/20 08/25/20 [Alphagan P 0.2% Ophth Drops] Aspirin [Olive] 325 mg PO BIDWM #28 tablet 08/27/20 Calcium Carbonate [Tums (Calcium 500 mg PO DAILY #30 tablet 08/27/20 Carbonate 500mg)] Cholecalciferol [Vitamin D3] 50 mcg PO DAILY #30 tablet 08/27/20 Docusate Sodium 100Mg Capsule 100 mg PO BID PRN #10 cap 08/27/20 [Colace 100Mg Capsule] Ferrous Sulfate [Feosol] 325 mg PO DAILY #30 tablet 08/27/20 oxyCODONE [Roxicodone] 5 mg PO Q4HR PRN #15 tablet 08/27/20 - Allergies Allergies/Adverse Reactions: Allergies Allergy/AdvReac Type Severity Reaction Status Date / Time cephalexin [From Keflex] Allergy Intermediate Rash Verified 11/08/20 12:40 codeine Allergy Intermediate hyperactivi Verified 11/08/20 12:40 ty hydrocodone Allergy Intermediate Rash Verified 11/08/20 12:40 hydromorphone [From Dilaudid] Allergy Intermediate Rash Verified 11/08/20 12:40 oxycodone [From Percocet] Allergy Intermediate Rash Verified 11/08/20 12:40 Sulfa (Sulfonamide Allergy Intermediate Rash Verified 11/08/20 12:40 Antibiotics) - Social History Does the pt smoke?: No Smoking Status: Never smoker Does the pt drink ETOH?: Yes Does the pt have substance abuse?: No - Immunizations Immunizations are current?: No Immunizations: TDAP >10years/unknown - POLST Patient has POLST: No PD ED PE NORMAL - Vitals Vital signs reviewed: Yes - General General: Alert and oriented X 3 (Very soft-spoken) - HEENT HEENT: PERRL, EOMI - Neck Neck: No bony TTP (Maintained in a collar pending imaging given age and comorbidities) - Cardiac Cardiac: RRR, No murmur - Respiratory Respiratory: No respiratory distress, Clear bilaterally - Abdomen Abdomen: Normal bowel sounds, Soft, Non tender - Back Back: No CVA TTP, No spinal TTP - Extremities Extremities: No edema, No calf tenderness / cord - Neuro Neuro: Alert and oriented X 3, No motor deficit, No sensory deficit, Normal speech Results - Vitals Vitals: Vital Signs - 24 hr 11/08/20 11/08/20 11/08/20 12:23 12:30 12:40 Temperature 36.6 C 36.6 C 36.8 C Heart Rate 90 90 60 Respiratory 16 16 16 Rate Blood Pressure 139/70 H 139/70 H 120/60 O2 Saturation 96 96 92 11/08/20 13:34 Temperature 36.5 C Heart Rate 82 Respiratory 16 Rate Blood Pressure 123/67 O2 Saturation 98 Oxygen O2 Source Room air - Rads (name of study) CT Head and Cspine Radiology: EMP read contemporaneously (NAD) Departure - Departure Disposition: 01 Home, Self Care Clinical Impression: Parkinson disease Injury of head and neck Qualifiers: Encounter type: initial encounter Qualified Code(s): S09.90XA - Unspecified injury of head, initial encounter; S19.9XXA - Unspecified injury of neck, initial encounter Condition: Good Record reviewed to determine appropriate education?: Yes Instructions: ED Head Injury Closed Comments: Call your doctor to arrange a follow-up appointment, make the next available appointment. In the interim, return anytime if worse or if new symptoms develop.
--- NOTE | 2020-11-08 13:28 | CT Report ---
PROCEDURE: HEAD WO INDICATIONS: head injury TECHNIQUE: Noncontrast 4.5 mm thick angled axial sections acquired from the foramen magnum to the vertex. For r adiation dose reduction, the following was used: automated exposure control, adjustment of mA and/or kV according to patient size. COMPARISON: 08/24/2020. FINDINGS: Image quality: Excellent. CSF spaces: Basal cisterns are patent. No extra-axial fluid collections. The ventricles are symmet les in size and shape. Brain: No intracranial bleeds or masses. There is cerebral volume loss for age, with resultant vent ricular and sulcal prominence. There are periventricular and deep white matter chronic small vessel ischemic changes. There is intracranial internal carotid artery atherosclerosis. Skull and face: Calvarium and visualized facial bones appear intact, without suspicious lesions. Sinuses: Visualized sinuses and mastoids are clear. IMPRESSION: No acute intracranial disease process. Reviewed by: Ligia Pena MD, PhD on 11/08/2020 1:27 PM PDT Approved by: Ligia Pena MD, PhD on 11/08/2020 1:27 PM PDT Station ID: [id number]
[2020-11-08 13:35] VITALS: BP 123/67
--- NOTE | 2020-11-08 13:38 | CT Report ---
PROCEDURE: CERVICAL SPINE WO INDICATIONS: head injury TECHNIQUE: Noncontrast 3 mm thick sections acquired from the skull base to the T4 level. Sagittal and coronal r eformats were then constructed. For radiation dose reduction, the following was used: automated exp osure control, adjustment of mA and/or kV according to patient size. COMPARISON: 08/24/2020. FINDINGS: Image quality: Excellent. Bones: No fractures or dislocations. Visualized superior ribs are intact. Spine degenerative disc d isease and facet arthropathy are noted. Soft tissues: Prevertebral soft tissues are normal in thickness. No paravertebral hematomas. No ap ical pneumothoraces. IMPRESSION: No fracture. No acute osseous lesion. If there is continued clinical concern for pathology, then MRI should be considered for further evaluation. Reviewed by: Ligia Pena MD, PhD on 11/08/2020 1:36 PM PDT Approved by: Ligia Pena MD, PhD on 11/08/2020 1:36 PM PDT Station ID: [id number]
== END 2020-11-08 13:53 | disposition home or self-care (01) ==
LOC: EDBD → EDUNIT# → SUPCPDRO 12:16 → ED 12:16
DX: S09.90XA Unspecified injury of head, initial encounter (principal); W19.XXXA Unspecified fall, initial encounter; G20 Parkinson's disease; F02.80 Dementia in other diseases classified elsewhere, unspecified severity, without behavioral disturbance, psychotic disturbance, mood disturbance, and anxiety; I10 Essential (primary) hypertension
CPT/HCPCS: 99282; 99284

== ENCOUNTER 2020-12-04 14:08 | Outpatient (CLI) | payer MEDICARE, BC ==
[2020-12-04 15:44] LABS: BASOPHILS % (AUTO) 0.5 %; EOSINOPHILS % (AUTO) 3.1 %; HCT - HEMATOCRIT 34.1 % (37.0-47.0); HGB - HEMOGLOBIN 9.7 g/dL (12.0-16.0); LYMPHOCYTES % (AUTO) 17.9 %; MEAN CORPUSCULAR HEMOGLOBIN 22.6 pg (27.0-31.0); MEAN CORPUSCULAR HGB CONC 28.4 g/dL (32.0-36.0); MEAN CORPUSCULAR VOLUME 79.5 fL (81.0-99.0); MEAN PLATELET VOLUME 8.8 fL (7.9-10.8); MONOCYTES % (AUTO) 22.4 %; NEUTROPHILS % (AUTO) 55.8 %; PLT - PLATELET COUNT 514 10^3/uL (130-450); RED BLOOD COUNT 4.29 10^6/uL (4.20-5.40); RED CELL DISTRIBUTION WIDTH 14.7 % (12.0-15.0); WHITE BLOOD COUNT 10.1 x10^3/uL (4.8-10.8)
[2020-12-04 15:49] LABS: ABNORMAL LYMPHS % (MANUAL) 0 %
[2020-12-04 16:02] LABS: CREATININE 0.5 mg/dL (0.4-1.0); POTASSIUM 3.7 mmol/L (3.5-5.0)
[2020-12-04 16:11] LABS: BAND NEUTROPHILS % (MANUAL) 2 %; EOSINOPHILS # (MANUAL) 0.2 10^3/uL (0-0.7); LYMPHOCYTES # (MANUAL) 1.7 10^3/uL (1.5-3.5); LYMPHOCYTES % (MANUAL) 17 %; MONOCYTES # (MANUAL) 1.1 10^3/uL (0.0-1.0); NEUTROPHILS # (MANUAL) 7.1 10^3/uL (1.5-6.6); PLATELET ESTIMATE, MANUAL INCREASED (>450,000) (NORMAL); PLATELET MORPHOLOGY NORMAL APPEARANCE (NORMAL); RBC MORPHOLOGY (MULTIPLE) NORMAL APPEARANCE (NORMAL)
[2020-12-04 16:12] LABS: DIFFERENTIAL COMMENT MANUAL DIFFERENTIAL
== END 2020-12-04 23:59 | disposition home or self-care (01) ==
LOC: LAB.R 14:08
DX: I10 Essential (primary) hypertension (principal); D50.0 Iron deficiency anemia secondary to blood loss (chronic)
CPT/HCPCS: 80048; 85025

== ENCOUNTER 2021-02-17 16:49 | Outpatient (CLI) | payer MEDICARE, BC, OTHER ==
[2021-02-17 17:22] LABS: BASOPHILS # (AUTO) 0.1 10^3/uL (0.0-0.1); BASOPHILS % (AUTO) 0.6 %; EOSINOPHILS # (AUTO) 0.2 10^3/uL (0.0-0.7); HCT - HEMATOCRIT 35.5 % (37.0-47.0); HGB - HEMOGLOBIN 10.3 g/dL (12.0-16.0); LYMPHOCYTES # (AUTO) 2.2 10^3/uL (1.5-3.5); LYMPHOCYTES % (AUTO) 18.5 %; MEAN CORPUSCULAR HEMOGLOBIN 23.4 pg (27.0-31.0); MEAN CORPUSCULAR VOLUME 80.7 fL (81.0-99.0); MEAN PLATELET VOLUME 8.8 fL (7.9-10.8); NEUTROPHILS # (AUTO) 7.3 10^3/uL (1.5-6.6); NEUTROPHILS % (AUTO) 61.6 %; PLT - PLATELET COUNT 487 10^3/uL (130-450); RED CELL DISTRIBUTION WIDTH 15.9 % (12.0-15.0); WHITE BLOOD COUNT 11.9 x10^3/uL (4.8-10.8)
[2021-02-17 17:36] LABS: ALBUMIN 3.4 g/dL (3.2-5.5); ALBUMIN/GLOBULIN RATIO 0.8 (1.0-2.2); ALKALINE PHOSPHATASE 105 IU/L (42-121); ALT ALANINE AMINOTRANSFERASE < 10 IU/L (10-60); AST ASPARTATE AMINOTRANSFERASE 17 IU/L (10-42); BILIRUBIN,TOTAL 0.3 mg/dL (0.2-1.0); BUN - BLOOD UREA NITROGEN 19 mg/dL (6-20); CALCIUM 9.1 mg/dL (8.5-10.3); CARBON DIOXIDE - CO2 29 mmol/L (21-32); CHLORIDE 99 mmol/L (101-111); CREATININE 0.4 mg/dL (0.4-1.0); GFR - MDRD 155 (>89); GLUCOSE 144 mg/dL (70-100); POTASSIUM 3.7 mmol/L (3.5-5.0); SODIUM 138 mmol/L (135-145); TOTAL PROTEIN 7.8 g/dL (6.7-8.2)
[2021-02-17 17:57] LABS: PLATELET ESTIMATE, MANUAL INCREASED (>450,000) (NORMAL); PLATELET MORPHOLOGY NORMAL APPEARANCE (NORMAL); RBC MORPHOLOGY (MULTIPLE) NORMAL APPEARANCE (NORMAL)
== END 2021-02-17 23:59 | disposition home or self-care (01) ==
LOC: LAB.R 16:49
DX: G20 Parkinson's disease (principal); D50.0 Iron deficiency anemia secondary to blood loss (chronic)
CPT/HCPCS: 80053; 82728; 85025

== ENCOUNTER 2021-08-01 13:01 | Outpatient (CLI) | payer MEDICARE, BC, OTHER ==
[2021-08-01 13:16] LABS: BASOPHILS # (AUTO) 0.1 10^3/uL (0.0-0.1); BASOPHILS % (AUTO) 0.6 %; EOSINOPHILS # (AUTO) 0.2 10^3/uL (0.0-0.7); EOSINOPHILS % (AUTO) 1.4 %; HCT - HEMATOCRIT 38.5 % (37.0-47.0); HGB - HEMOGLOBIN 11.4 g/dL (12.0-16.0); LYMPHOCYTES # (AUTO) 2.3 10^3/uL (1.5-3.5); LYMPHOCYTES % (AUTO) 18.5 %; MEAN CORPUSCULAR HEMOGLOBIN 25.3 pg (27.0-31.0); MEAN CORPUSCULAR HGB CONC 29.6 g/dL (32.0-36.0); MEAN CORPUSCULAR VOLUME 85.4 fL (81.0-99.0); MEAN PLATELET VOLUME 8.7 fL (7.9-10.8); MONOCYTES # (AUTO) 1.9 10^3/uL (0.0-1.0); MONOCYTES % (AUTO) 14.8 %; NEUTROPHILS # (AUTO) 8.1 10^3/uL (1.5-6.6); NEUTROPHILS % (AUTO) 64.4 %; PLT - PLATELET COUNT 619 10^3/uL (130-450); RED BLOOD COUNT 4.51 10^6/uL (4.20-5.40); RED CELL DISTRIBUTION WIDTH 14.1 % (12.0-15.0); WHITE BLOOD COUNT 12.5 x10^3/uL (4.8-10.8)
[2021-08-01 13:17] LABS: RBC MORPHOLOGY (MULTIPLE) 2+ ANISOCYTOSIS (NORMAL); SLIDE REVIEW? Indicated
[2021-08-01 13:34] LABS: ALBUMIN 3.6 g/dL (3.2-5.5); ALBUMIN/GLOBULIN RATIO 0.9 (1.0-2.2); BILIRUBIN,TOTAL 0.6 mg/dL (0.2-1.0); CALCIUM 9.5 mg/dL (8.5-10.3); CREATININE 0.4 mg/dL (0.4-1.0); POTASSIUM 4.5 mmol/L (3.5-5.0); TOTAL PROTEIN 7.8 g/dL (6.7-8.2)
[2021-08-01 14:10] LABS: THYROID STIMULATING HORMONE 1.38 uIU/mL (0.34-5.60)
[2021-08-01 14:12] LABS: FREE T4 (FREE THYROXINE) 0.9 ng/dL (0.58-1.64)
== END 2021-08-01 13:02 | disposition home or self-care (01) ==
LOC: LAB.R 13:01
PROVIDERS: ATTEND Hospitalist
DX: G20 Parkinson's disease (principal); R63.0 Anorexia; E03.9 Hypothyroidism, unspecified
CPT/HCPCS: 80053; 84439; 84443; 85025